=== PATIENT | male | born 1970 | race Two or more races ===

== ENCOUNTER → 2016-07-09 | Outpatient (CLI) | payer MEDICARE, MEDICAID ==
[2016-07-09 11:12] LABS: Urine RBC None Seen /hpf (0 - 3)
[2016-07-09 11:21] LABS: Basophils # (auto) 0 uL; Basophils % (auto) 0.4 % (0.0-2.0); DEFINITIVE VIEW TRANSMISSION; Eosinophils # (auto) 0.3 uL; Eosinophils % (auto) 5.3 % (0.0-7.0); Hematocrit 41.8 % (41.0-53.0); Hemoglobin 14.1 g/dL (13.5-17.5); Lymphocytes # (auto) 1.2 uL; Lymphocytes % (auto) 20.8 % (10.0-50.0); Mean Corpuscular Hgb Conc. 33.7 g/dL (32.0-36.0); Mean Corpuscular Volume 80.3 fL (80.0-100.0); Mean Platelet Volume 9.3 fL (7.4-10.4); Monocytes # (auto) 0.3 uL; Monocytes % (auto) 4.4 % (0.0-12.0); Neutrophils % (auto) 69.1 % (37.0-80.0); Platelet Count (auto) 185 10^3/uL (140-450); Red Cell Distribution Width 19.1 % (11.6-16.0); White Blood Cell 5.8 10^3/uL (4.4-10.8)
[2016-07-09 11:42] LABS: Urine Bilirubin Negative (Negative); Urine Blood Negative /uL (Negative); Urine Color Yellow (Yellow); Urine Glucose Normal (Normal); Urine Ketone Negative (Negative); Urine Nitrite Negative (Negative); Urine Squamous Epithelial Cell FEW /hpf (<5); Urine pH 6.5 (5.0-8.0)
[2016-07-09 12:01] LABS: Albumin 3.5 g/dL (3.4-5.0); BUN/Creatinine Ratio 27.3; Bilirubin, Total 0.6 mg/dL (0.2-1.0); Calcium 8.8 mg/dL (8.5-10.1); Potassium 3.6 mmol/L (3.5-5.1); Total Protein 7.5 g/dL (6.4-8.2)
== END | disposition home or self-care (01) ==
LOC: LAB 10:43
DX: E11.8 Type 2 diabetes mellitus with unspecified complications (principal); N52.1 Erectile dysfunction due to diseases classified elsewhere; E78.2 Mixed hyperlipidemia; I10 Essential (primary) hypertension
CPT/HCPCS: 36415; 80053; 80061; 81001; 83036; 84403; 84443; 85025

== ENCOUNTER → 2017-05-08 | Outpatient (CLI) | payer MEDICARE, MEDICAID ==
[2017-05-08 08:43] LABS: Basophils # (auto) 0 uL; Basophils % (auto) 0.5 % (0.0-2.0); Eosinophils # (auto) 0.1 uL; Eosinophils % (auto) 1.1 % (0.0-7.0); Hematocrit 42.2 % (41.0-53.0); Hemoglobin 14.2 g/dL (13.5-17.5); Lymphocytes # (auto) 1.3 uL; Mean Corpuscular Hemoglobin 27.6 pg (28.0-32.0); Mean Corpuscular Hgb Conc. 33.6 g/dL (32.0-36.0); Monocytes # (auto) 0.4 uL; Monocytes % (auto) 4.6 % (0.0-12.0); Neutrophils # (auto) 6.4 uL; Neutrophils % (auto) 77.8 % (37.0-80.0); Nucleated Red Blood Cells % 0.4 %; Platelet Count (auto) 251 10^3/uL (140-450); Red Blood Cells 5.14 10^6/uL (4.5-5.90); Red Cell Distribution Width 18.3 % (11.8-14.3); White Blood Cell 8.2 10^3/uL (4.4-10.8)
[2017-05-08 09:37] LABS: Albumin 3.3 g/dL (3.4-5.0); BUN/Creatinine Ratio 21.7; Bilirubin, Total 0.6 mg/dL (0.2-1.0); Calcium 8.9 mg/dL (8.5-10.1); Potassium 3.8 mmol/L (3.5-5.1); Total Protein 7.7 g/dL (6.4-8.2)
== END | disposition home or self-care (01) ==
LOC: LAB 08:09
PROVIDERS: ATTEND Physician Assistant
DX: I10 Essential (primary) hypertension (principal); E11.8 Type 2 diabetes mellitus with unspecified complications; E78.2 Mixed hyperlipidemia; K75.81 Nonalcoholic steatohepatitis (NASH)
CPT/HCPCS: 36415; 80053; 80061; 83036; 85025

== ENCOUNTER → 2017-11-04 | Outpatient (CLI) | payer MEDICARE, MEDICAID ==
[2017-11-04 12:33] LABS: Basophils # (auto) 0 uL; Basophils % (auto) 0.3 % (0.0-2.0); Eosinophils # (auto) 0.3 uL; Eosinophils % (auto) 4.3 % (0.0-7.0); Hematocrit 43.3 % (41.0-53.0); Hemoglobin 14.7 g/dL (13.5-17.5); Lymphocytes # (auto) 1.9 uL; Lymphocytes % (auto) 24.4 % (10.0-50.0); Mean Corpuscular Hemoglobin 28.1 pg (28.0-32.0); Mean Corpuscular Hgb Conc. 33.9 g/dL (32.0-36.0); Monocytes # (auto) 0.3 uL; Monocytes % (auto) 4.1 % (0.0-12.0); Neutrophils # (auto) 5.3 uL; Neutrophils % (auto) 66.9 % (37.0-80.0); Nucleated Red Blood Cells % 0.1 %; Platelet Count (auto) 219 10^3/uL (140-450); Red Blood Cells 5.22 10^6/uL (4.5-5.90); Red Cell Distribution Width 15.3 % (11.8-14.3); White Blood Cell 7.9 10^3/uL (4.4-10.8)
[2017-11-04 13:01] LABS: Albumin 3.5 g/dL (3.4-5.0); BUN/Creatinine Ratio 20.9; Bilirubin, Total 0.6 mg/dL (0.2-1.0); Calcium 8.6 mg/dL (8.5-10.1); Potassium 4.2 mmol/L (3.5-5.1); Total Protein 8.1 g/dL (6.4-8.2)
== END | disposition home or self-care (01) ==
LOC: LAB 11:47
PROVIDERS: ATTEND Physician Assistant
DX: E11.8 Type 2 diabetes mellitus with unspecified complications (principal); E78.2 Mixed hyperlipidemia
CPT/HCPCS: 36415; 80053; 80061; 82043; 85025

== ENCOUNTER 2018-07-29 05:05 | Inpatient (IN) | payer MEDICARE, MEDICAID, OTHER | END 2018-08-01 18:37 | disposition home health service (06) | LOC: ER 05:05 → TELE 08:36 → TELE-EAST 10:06 | DX: A41.9 Sepsis, unspecified organism (principal); N39.0 Urinary tract infection, site not specified; G82.20 Paraplegia, unspecified; E78.5 Hyperlipidemia, unspecified; I10 Essential (primary) hypertension; Z79.84 Long term (current) use of oral hypoglycemic drugs; E78.00 Pure hypercholesterolemia, unspecified; E87.6 Hypokalemia; E11.65 Type 2 diabetes mellitus with hyperglycemia ==

== ENCOUNTER 2018-11-10 10:21 | Emergency (ER) | payer MEDICARE, MEDICAID ==
[~2018-11-10 10:21] MED LIST: ATOR10TA52 PO; CIPR-217 PO; LISI10TA6 PO; METF-370 PO
[2018-11-10 11:53] LABS: Basophils # (auto) 0.1 uL; Basophils % (auto) 0.6 % (0.0-2.0); Eosinophils # (auto) 0.2 uL; Eosinophils % (auto) 2.4 % (0.0-7.0); Hematocrit 40.7 % (41.0-53.0); Hemoglobin 14.2 g/dL (13.5-17.5); Lymphocytes % (auto) 21.2 % (10.0-50.0); Mean Corpuscular Hemoglobin 28.4 pg (28.0-32.0); Mean Corpuscular Hgb Conc. 34.8 g/dL (32.0-36.0); Mean Corpuscular Volume 81.5 fL (80.0-100.0); Monocytes # (auto) 0.4 uL; Monocytes % (auto) 3.8 % (0.0-12.0); Neutrophils # (auto) 6.8 uL; Nucleated Red Blood Cells % 0.1 %; Platelet Count (auto) 185 10^3/uL (140-450); Red Cell Distribution Width 17.8 % (11.8-14.3); White Blood Cell 9.4 10^3/uL (4.4-10.8)
[2018-11-10 12:01] LABS: Urine Bacteria FEW /hpf (None Seen); Urine Blood 2+ /uL (Negative); Urine Specific Gravity 1.016 (1.001-1.035); Urine WBC 2814 /hpf (0 - 3); Urine WBC Clumps PRESENT /hpf (None Seen)
[2018-11-10 12:28] LABS: Albumin 3.3 g/dL (3.4-5.0); Calcium 8.7 mg/dL (8.5-10.1); Potassium 3.5 mmol/L (3.5-5.1)
[2018-11-10 12:34] LABS: BUN/Creatinine Ratio 20.2; Bilirubin, Total 0.9 mg/dL (0.2-1.0); Total Protein 8.5 g/dL (6.4-8.2)
[2018-11-10] MEDS ORDERED: InsuLIN REG 1unit/0.01ml Soln (100units/ml) SC ONE ×2 (12:45→14:30)
[2018-11-10 14:23] VITALS: BP 135/85
== END 2018-11-10 14:37 | disposition home or self-care (01) ==
LOC: ER 10:24
DX: E11.65 Type 2 diabetes mellitus with hyperglycemia (principal); N39.0 Urinary tract infection, site not specified; I10 Essential (primary) hypertension; Z90.49 Acquired absence of other specified parts of digestive tract; Z79.84 Long term (current) use of oral hypoglycemic drugs; Z79.899 Other long term (current) drug therapy
CPT/HCPCS: 36415; 80053; 81001; 82962; 85025; 96372; 99283; J1815

== ENCOUNTER 2018-11-27 14:13 | Inpatient (IN) | payer MEDICARE, MEDICAID ==
[~2018-11-27] VITALS: Ht 154.9 cm; Wt 99.9 kg
[2018-11-27] MEDS ORDERED: SODIUM CHLORIDE 0.9% 1,000 ML IVB ONE (14:20)
[2018-11-27] MEDS ORDERED: ONDANSETRON HCL 4 MG/2 ML VIAL IV ONE (14:30)
[2018-11-27] MEDS ORDERED: MORPHINE SULFATE 4 MG/ML SYR/VIAL IV ONE (14:30)
[2018-11-27] MEDS ORDERED: LEVOFLOXACIN 500MG 100 ML IV ONE (14:30)
[2018-11-27] MEDS ORDERED: ACETAMINOPHEN 325 MG TAB PO ONE (15:15)
[2018-11-27 15:35] LABS: Albumin 3.3 g/dL (3.4-5.0); BUN/Creatinine Ratio 21.8; Calcium 8.8 mg/dL (8.5-10.1); Potassium 3.3 mmol/L (3.5-5.1)
[2018-11-27 15:37] LABS: Bilirubin, Total 1.1 mg/dL (0.2-1.0); Lactic Acid w/Reflex 3.5 mmol/L (0.4-2.0)
[2018-11-27 15:38] LABS: Basophils # (auto) 0 uL; Basophils % (auto) 0.2 % (0.0-2.0); Eosinophils # (auto) 0 uL; Eosinophils % (auto) 0.2 % (0.0-7.0); Hematocrit 37.7 % (41.0-53.0); Hemoglobin 12.8 g/dL (13.5-17.5); Lymphocytes # (auto) 0.4 uL; Mean Corpuscular Hemoglobin 28.2 pg (28.0-32.0); Mean Corpuscular Volume 82.9 fL (80.0-100.0); Monocytes # (auto) 0.2 uL; Monocytes % (auto) 2.2 % (0.0-12.0); Neutrophils # (auto) 8.5 uL; Neutrophils % (auto) 93.4 % (37.0-80.0); Nucleated Red Blood Cells % 0.3 %; Platelet Count (auto) 113 10^3/uL (140-450); Red Blood Cells 4.54 10^6/uL (4.5-5.90); Red Cell Distribution Width 17.9 % (11.8-14.3); White Blood Cell 9.1 10^3/uL (4.4-10.8)
[2018-11-27] MEDS ORDERED: PIPERACILLIN-TAZOB 3.375GM 100 ML IV ONE (15:45)
[2018-11-27 15:52] LABS: Urine Bacteria MANY /hpf (None Seen); Urine Blood 2+ /uL (Negative); Urine Mucus FEW (None Seen); Urine Specific Gravity 1.017 (1.001-1.035); Urine WBC 62 /hpf (0 - 3)
[2018-11-27 16:26] LABS: INR 1.06 (0.9-1.15)
[2018-11-27] MEDS ORDERED: NITROGLYCERIN 0.4 MG SL TAB SL PRN (16:30)
[2018-11-27] MEDS ORDERED: MORPHINE SULFATE 4 MG/ML SYR/VIAL IV PRN (16:30)
[2018-11-27] MEDS ORDERED: DEXTROSE (50%) 50ML SYRG IV PRN (16:30)
[2018-11-27] MEDS ORDERED: MORPHINE SULF INJ 2 MG/ML SYRINGE 1ML IV PRN (16:30)
[2018-11-27] MEDS ORDERED: ACETAMINOPHEN 500 MG TAB PO PRN (16:30)
[2018-11-27] MEDS ORDERED: PROMETHAZINE HCL 25 MG/ML 1ML IV PRN (16:30)
[2018-11-27] MEDS ORDERED: POTASSIUM EFFERVESENT TAB 25 MEQ PO ONE (16:45)
[2018-11-27] MEDS: ACCU-CHEK COMFORT CURVE STRIP VI SCH ×2 (17:00→22:00)
[2018-11-27] MEDS: InsuLIN REG 1unit/0.01ml Soln (100units/ml) SC SCH ×2 (17:00→23:24)
[2018-11-27] MEDS: SODIUM CHLORIDE 0.9% 1,000 ML IV SCH (17:37)
[2018-11-27 21:20] VITALS: BP 96/67
--- NOTE | 2018-11-27 21:20 | NUR ---
PM ASSESSMENT PT AWAKE, ALERT, A/OX4, AFEBRILE. NO SOB OR DISTRESS. FAMILY AT BEDSIDE. POC DISCUSSED, PT STATED UNDERSTANDING. CHRISTIANSON CATHETER DRAINING VIA GRAVITY W/ YELLOW CLOUDY URINE. SAFETY PRECAUTIONS IN PLACE. WILL CONTINUE TO MONITOR.
[2018-11-27] MEDS: PIPERACILLIN-TAZOB 3.375GM 100 ML IV SCH (22:37)
--- NOTE | 2018-11-28 | NUR ---
ROUNDS PT SLEEPING CHEST RISING AND FALLING, AROUSABLE BY NAME. PT AFEBRILE. PT TURNED TO SIDE OF BODY, TOLERATING WELL. NO SOB OR DISTRESS. SAFETY PRECAUTIONS IN PLACE. WILL CONTINUE TO MONITOR.
[2018-11-28] MEDS: SODIUM CHLORIDE 0.9% 1,000 ML IV SCH ×2 (02:15→13:52)
--- NOTE | 2018-11-28 02:31 | NUR ---
MED REC UPDATED
[2018-11-28 05:00] VITALS: BP 87/53
[2018-11-28] MEDS: PIPERACILLIN-TAZOB 3.375GM 100 ML IV SCH ×4 (06:18→23:45)
[2018-11-28] MEDS: ACCU-CHEK COMFORT CURVE STRIP VI SCH ×4 (06:30→22:23)
[2018-11-28] MEDS: InsuLIN REG 1unit/0.01ml Soln (100units/ml) SC SCH ×4 (06:30→22:24)
[2018-11-28 06:52] LABS: Albumin 2.7 g/dL (3.4-5.0); Calcium 8.1 mg/dL (8.5-10.1); Potassium 3.7 mmol/L (3.5-5.1)
[2018-11-28 06:55] LABS: BUN/Creatinine Ratio 22.9; Bilirubin, Total 1.2 mg/dL (0.2-1.0); Total Protein 6.7 g/dL (6.4-8.2)
--- NOTE | 2018-11-28 07:20 | NUR ---
Open Shift Note Received report on patient, awake and lying in bed. Patient shows no signs of distress at this time. Patient's blood pressure low but is asymptomatic. Readjusted patient in bed, discussed POC and patient verbalized understanding. Patient has normal saline running through IV. Bed in lowest locked position, side rails up x2 and call light within reach. Will continue to monitor.
[2018-11-28] MEDS: PANTOPRAZOLE 40 MG TAB PO SCH (09:40)
[2018-11-28] MEDS: traMADol HCL 50 MG TAB PO PRN ×2 (09:46→16:55)
[2018-11-28 10:50] VITALS: BP 135/90
[2018-11-28] MEDS ORDERED: IBUPROFEN 400 MG TAB PO PRN (15:00)
[2018-11-28 17:30] VITALS: BP 143/75
--- NOTE | 2018-11-28 17:30 | NUR ---
Paged Urologic Nurse Hospitalist Paged Dr Alva and informed him that patient's left arm blood pressure reading 63/37 and his left leg blood pressure reading 143/75. Patient is asymptomatic at this time. Dr Alva stated to give 500ml bolus NS. Order read back and verified.
[2018-11-28] MEDS ORDERED: SODIUM CHLORIDE 0.9% 500 ML IV ONE (17:45)
--- NOTE | 2018-11-28 19:30 | NUR ---
Closing Note Patient sitting up in bed, shows no signs of distress at this time. Bed in lowest locked position, side rails up x2 and call light within reach. Family present at bedside.
--- NOTE | 2018-11-28 19:30 | NUR ---
Opening Shift Note Assumed care of patient, awake and alert. No S/S of distress/SOB. Family at bedside. Quiñones patent and draining to light ava urine. Discussed on POC, patient and family verbalized understanding. Turned to his side and every 2 hours. Instructed to call for assist PRN, call light within reach, will continue to monitor for changes Q1hr and PRN.
[2018-11-28 22:00] VITALS: BP 126/75
[2018-11-29] MEDS: traMADol HCL 50 MG TAB PO PRN ×2 (01:41→10:10)
[2018-11-29 05:00] VITALS: BP 105/61
[2018-11-29] MEDS: ACCU-CHEK COMFORT CURVE STRIP VI SCH ×4 (06:31→22:16)
[2018-11-29] MEDS: PIPERACILLIN-TAZOB 3.375GM 100 ML IV SCH ×3 (06:31→17:54)
[2018-11-29] MEDS: InsuLIN REG 1unit/0.01ml Soln (100units/ml) SC SCH ×4 (06:32→22:17)
[2018-11-29 07:06] LABS: Basophils # (auto) 0 uL; Basophils % (auto) 0.4 % (0.0-2.0); Eosinophils # (auto) 0.2 uL; Eosinophils % (auto) 2.6 % (0.0-7.0); Hematocrit 31.4 % (41.0-53.0); Hemoglobin 11.1 g/dL (13.5-17.5); Lymphocytes # (auto) 1.4 uL; Lymphocytes % (auto) 23.6 % (10.0-50.0); Mean Corpuscular Hemoglobin 28.9 pg (28.0-32.0); Mean Corpuscular Hgb Conc. 35.3 g/dL (32.0-36.0); Mean Corpuscular Volume 81.8 fL (80.0-100.0); Monocytes # (auto) 0.3 uL; Neutrophils # (auto) 3.9 uL; Neutrophils % (auto) 67.4 % (37.0-80.0); Platelet Count (auto) 100 10^3/uL (140-450); Red Blood Cells 3.84 10^6/uL (4.5-5.90); Red Cell Distribution Width 17.7 % (11.8-14.3); White Blood Cell 5.8 10^3/uL (4.4-10.8)
[2018-11-29 07:15] LABS: Potassium 3.6 mmol/L (3.5-5.1)
[2018-11-29 07:25] LABS: Albumin 2.6 g/dL (3.4-5.0); BUN/Creatinine Ratio 14.8; Bilirubin, Total 0.9 mg/dL (0.2-1.0); Calcium 8.1 mg/dL (8.5-10.1); Total Protein 6.8 g/dL (6.4-8.2)
[2018-11-29 08:00] VITALS: BP 127/71
--- NOTE | 2018-11-29 08:00 | NUR ---
Patient in bed, awake, no acute distress noted, on Quiñones catheter. Patient is paraplegic.
--- NOTE | 2018-11-29 09:20 | NUR ---
Dr. Cadena at bedside. made aware patient is paraplegic, incontinent, has NM Bone Scan ordered for Saturday. Dr. Cadena ordered to keep the Quiñones catheter, no discharge orders today.
[2018-11-29] MEDS: PANTOPRAZOLE 40 MG TAB PO SCH (10:10)
--- NOTE | 2018-11-29 10:10 | NUR ---
Patient stated his pain level at 10/10 at this time. Tramadol PO given for pain as ordered.
[2018-11-29] MEDS ORDERED: ENOXAPARIN SOD 40 MG/0.4 ML SYRINGE SC ONE (10:30)
[2018-11-29 12:00] VITALS: BP 142/50
--- NOTE | 2018-11-29 12:38 | NUR ---
Nutrition Consult/Assessment Notes please see attached link for complete assessment Est. Needs ABW (75 kg): 6750-6281 kcal (17-20 kcal/kgBW), 75-82 gms pro (1.0-1.1 gms/kgBW r/t wounds). Will continue to monitor pertinent labs and reassess nutrient need prn Addendum: 11/29/18 at [address] Amended: Links added.
--- NOTE | 2018-11-29 16:45 | NUR ---
WOUND CARE NOTE: Wound care consult received from nursing. Patient is a 48yo male admitted for UTI with sepsis. Patient with a history of diabetes, fatty liver, hypertension, paraplegia, UTIs, left inguinal hernia and obesity. Patient is alert and denies pain. Last Isidro score is 12. Patient seen with family at bedside. Patient has been paraplegic since 1990 and has suffered from pressure injuries before. Patient states that previous wound was so bad that it went to the muscle and required surgical debridement. Patient can transfer self from bed to wheel chair and frequently and often the friction reopens up the healed pressure injury. Patient's also states that they have recently been trying different adult briefs which many don't protect the skin from moisture as well as others. Patient with an open area to the left buttocks/ischium measuring 1.5x1.5cm with surrounding pink scar tissue. No other open wounds noted. RECOMMENDATIONS: Dietary consult; Turn q2hrs; Specialty Bed; Nursing to cleanse buttocks wound with wound cleanser, pat dry, apply THERAHONEY GEL and cover with OPTIFOAM GENTLE, change every other day and PRN soiling; wound care team to follow. Addendum: 11/29/18 at 1848 by HAILEE AYALA RN Amended: Links added.
--- NOTE | 2018-11-29 16:50 | NUR ---
Wound Care Nurse Fouzia came over to see the patient for Wound Consult.
[2018-11-29 17:00] VITALS: BP 111/64
[2018-11-29 22:10] VITALS: BP 133/82
[2018-11-30] MEDS: PIPERACILLIN-TAZOB 3.375GM 100 ML IV SCH ×5 (00:25→23:38)
[2018-11-30] MEDS: traMADol HCL 50 MG TAB PO PRN (00:42)
[2018-11-30 05:01] VITALS: BP 107/51
[2018-11-30] MEDS: ACCU-CHEK COMFORT CURVE STRIP VI SCH ×4 (06:35→21:46)
[2018-11-30] MEDS: InsuLIN REG 1unit/0.01ml Soln (100units/ml) SC SCH ×4 (06:36→21:51)
--- NOTE | 2018-11-30 08:24 | NUR ---
Dr. Cadena at bedside.
[2018-11-30 09:00] VITALS: BP 125/77
--- NOTE | 2018-11-30 09:40 | NUR ---
Transferred patient on bed with specialty mattress as ordered.
[2018-11-30] MEDS ORDERED: ENOXAPARIN SOD 40 MG/0.4 ML SYRINGE SC SCH (10:00)
[2018-11-30] MEDS: PANTOPRAZOLE 40 MG TAB PO SCH (10:15)
--- NOTE | 2018-11-30 11:00 | NUR ---
Family at bedside.
[2018-11-30 12:54] VITALS: BP 126/74
[2018-11-30 17:00] VITALS: BP 128/86
--- NOTE | 2018-11-30 17:15 | NUR ---
Yellowish stain noted on the pad cair. Changed the pad cair. Patient on Quiñones catheter, with Opti foam on the sacral/buttock area. Patient is paraplegic.
--- NOTE | 2018-11-30 17:20 | NUR ---
Patient denies pain. Family at bedside.
--- NOTE | 2018-11-30 19:15 | NUR ---
RECEIVED PATIENT FROM DAY SHIFT RN. PATIENT RESTING IN BED. NO S/S OF DISTRESS NOTED. FAMILY AT BEDSIDE. DENIED PAIN FOR NOW. CHRISTIANSON CATH IN PLACE DRAINING GRAVITY. DRESSING ON SACRUM AREA C/D/I. POC INSTRUCTED AND ENCOURAGED PATIENT TO CALL FOR TOILET PRODUCTS MOLDER IF NEEDED. SPECIAL MATTRESS BED IN LOWEST POSITION WITH SIDE RAILS UP X 2. CALL RAMOS WITHIN REACH. ALARM ON. CONTINUE TO MONITOR FOR CHANGES Q1H AND PRN.
--- NOTE | 2018-11-30 22:10 | NUR ---
ACCU-CHECK, BS 215. INSULIN GIVEN ORDERED. CONTINUE TO MONITOR.
[2018-11-30 22:51] VITALS: BP 101/71
--- NOTE | 2018-11-30 23:38 | NUR ---
REPOSITIONED PATIENT. PATIENT TOLERATED WELL. CONTINUE TO MONITOR.
--- NOTE | 2018-12-01 01:27 | NUR ---
REPOSITIONED PATIENT TO COMFORT. PATIENT TOLERATED WELL. CONTINUE CARE.
--- NOTE | 2018-12-01 03:29 | NUR ---
REPOSITIONED PATIENT. PATIENT TOLERATED WELL. CONTINUE TO MONITOR.
[2018-12-01 04:57] VITALS: BP 115/46
--- NOTE | 2018-12-01 05:30 | NUR ---
REPOSITIONED PATIENT. PATIENT TOLERATED WELL. CONTINUE TO MONITOR.
[2018-12-01] MEDS: PIPERACILLIN-TAZOB 3.375GM 100 ML IV SCH (06:11)
[2018-12-01] MEDS: InsuLIN REG 1unit/0.01ml Soln (100units/ml) SC SCH ×4 (06:25→21:42)
[2018-12-01] MEDS: ACCU-CHEK COMFORT CURVE STRIP VI SCH ×4 (06:25→21:41)
--- NOTE | 2018-12-01 06:52 | NUR ---
ACCU-CHECK, BS 165. INSULIN GIVEN ORDERED. CONTINUE TO MONITOR.
--- NOTE | 2018-12-01 07:50 | NUR ---
Opening Shift Note Assumed care of patient, awake and alert. No S/S of distress/SOB or pain. Instructed on POC and to call for assist PRN, will continue to monitor for changes Q1hr and PRN. Q2H turning for patient.
[2018-12-01 09:00] VITALS: BP 125/81
[2018-12-01] MEDS: PANTOPRAZOLE 40 MG TAB PO SCH (09:22)
[2018-12-01] MEDS: ENOXAPARIN SOD 40 MG/0.4 ML SYRINGE SC SCH (09:23)
[2018-12-01] MEDS: traMADol HCL 50 MG TAB PO PRN (09:26)
--- NOTE | 2018-12-01 10:24 | NUR ---
Off Unit Patient left unit for nuclear medicine dept.
[2018-12-01] MEDS ORDERED: CEFTRIAXONE SODIUM 2 GM in D5W 5% 50 ML IV ONE (10:45)
--- NOTE | 2018-12-01 13:00 | NUR ---
On Unit Patient returned to unit with technicians. Patient in no obvious distress SOB/Pain.
--- NOTE | 2018-12-01 13:10 | NUR ---
Hygenic Needs Hygienic needs met along with full linen change. Wound care done as ordered. Patient placed in supine position so he can have lunch.
[2018-12-01 17:00] VITALS: BP 125/77
--- NOTE | 2018-12-01 17:30 | NUR ---
Family members at bedside.
--- NOTE | 2018-12-01 18:15 | NUR ---
Air Mattress Drywall Finisher Foreman changed cable for air mattress. Same was previously not working.
--- NOTE | 2018-12-01 19:24 | NUR ---
RECEIVED PATIENT FROM DAY SHIFT RN. PATIENT RESTING IN BED. NO S/S OF DISTRESS NOTED. DENIED PAIN FOR NOW. CHRISTIANSON CATH IN PLACE DRAINING GRAVITY. DRESSING ON SACRUM AREA C/D/I. POC INSTRUCTED AND ENCOURAGED PATIENT TO CALL FOR COLLARETTE SEPARATOR IF NEEDED. SPECIAL MATTRESS BED WORKING NOW AND IN LOWEST POSITION WITH SIDE RAILS UP X 2. CALL RAMOS WITHIN REACH. ALARM ON. CONTINUE TO MONITOR FOR CHANGES Q1H AND PRN.
--- NOTE | 2018-12-01 21:35 | NUR ---
REPOSITIONED PATIENT. PATIENT TOLERATED WELL. CONTINUE TO MONITOR.
[2018-12-01 22:00] VITALS: BP 137/70
--- NOTE | 2018-12-01 22:42 | NUR ---
ACCU-CHECK, BS 198. INSULIN GIVEN ORDERED. CONTINUE TO MONITOR.
--- NOTE | 2018-12-02 00:07 | NUR ---
REPOSITIONED PATIENT. PATIENT TOLERATED WELL. CONTINUE TO MONITOR.
--- NOTE | 2018-12-02 04:58 | NUR ---
REPOSITIONED PATIENT. PATIENT TOLERATED WELL. CONTINUE TO MONITOR.
[2018-12-02 05:00] VITALS: BP 102/50
[2018-12-02] MEDS: ACCU-CHEK COMFORT CURVE STRIP VI SCH ×3 (06:26→17:00)
[2018-12-02] MEDS: InsuLIN REG 1unit/0.01ml Soln (100units/ml) SC SCH ×3 (06:26→17:00)
--- NOTE | 2018-12-02 06:27 | NUR ---
ACCU-CHECK, BS 165. INSULIN GIVEN ORDERED. CONTINUE TO MONITOR.
--- NOTE | 2018-12-02 07:40 | NUR ---
Opening Shift Note Assumed care of patient, awake and alert. No S/S of distress/SOB or pain. Instructed on POC and to call for assist PRN, will continue to monitor for changes Q1hr and PRN. Q2H Turning.
[2018-12-02 09:12] VITALS: BP 141/81
[2018-12-02] MEDS ORDERED: CEFTRIAXONE SODIUM 2 GM in D5W 5% 50 ML IV SCH (10:00)
[2018-12-02] MEDS: PANTOPRAZOLE 40 MG TAB PO SCH (10:11)
[2018-12-02] MEDS: ENOXAPARIN SOD 40 MG/0.4 ML SYRINGE SC SCH (10:11)
[2018-12-02] MEDS ORDERED: ROC2INJ10 IV (11:45)
[2018-12-02 13:00] VITALS: BP 148/91
--- NOTE | 2018-12-02 14:57 | NUR ---
Midline Placement: Patient educated on need for midline placement. All risks and benefits explained and all questions and concerns addresses prior to procedure. 18g/10cm midline inserted via right basilic vein using Ultrasound. Sterile technique utilized. Blood return obtained from lumen and flushed easily with NS using proper technique. Midline secured with saline lock; biodisc and occlusive dressing applied. Primary RN notified. Midline lot # [id number]
--- NOTE | 2018-12-02 15:15 | NUR ---
Discharge Photo Discharge picture of wound taken.
--- NOTE | 2018-12-02 15:16 | NUR ---
Discharge planning per consult, patient received orders to dc with home health for IV ABX x 10 days. Referral faxed to [facility] Infusion and [facility]. Spoke with Alison at [facility] and was advised they will deliver the IV ABX today between 7-9pm. Spoke with Popeye at [facility] and was advised that they will be going out in the morning to start care services. Nurse Chelsea advised of dc plan. Addendum: 12/02/18 at 1521 by RACHNA MAHAN SS Amended: Links added.
[2018-12-02 15:51] VITALS: BP 148/91
[2018-12-02 17:00] VITALS: BP 110/66
--- NOTE | 2018-12-02 18:20 | NUR ---
Discharge instructions given as ordered. Encourage to follow up with PMD as instructed. All questions and concerns addressed. Patient verbalized understanding. Medication reconciliation form completed and copy given to patient. IV previously removed with catheter intact and pressure dressing applied, mireles catheter removed. Midline remained in place for home antibiotics. Telemetry unit returned to ICU. Patient left unit in wheel chair with all personal belongings. No distress noted at time of departure.
== END 2018-12-02 18:00 | disposition home health service (06) | DRG 871 ==
LOC: EDBD 14:13 → ER 14:16 → TELE 14:17 → TELE-EAST 20:51
PROVIDERS: ADMIT Internal Medicine; ATTEND Internal Medicine Nephrology
PROC: 05HY33Z Insertion of Infusion Device into Upper Vein, Percutaneous Approach (ICD-10-PCS; principal; 2018-12-02)
PROC: B54MZZA Ultrasonography of Right Upper Extremity Veins, Guidance (ICD-10-PCS; 2018-12-02)
DX: A41.50 Gram-negative sepsis, unspecified (principal); L89.154 Pressure ulcer of sacral region, stage 4; N39.0 Urinary tract infection, site not specified; E87.1 Hypo-osmolality and hyponatremia; G82.20 Paraplegia, unspecified; Z68.41 Body mass index [BMI] 40.0-44.9, adult; R65.20 Severe sepsis without septic shock; E87.6 Hypokalemia; K76.0 Fatty (change of) liver, not elsewhere classified; E11.9 Type 2 diabetes mellitus without complications; I10 Essential (primary) hypertension; M65.852 Other synovitis and tenosynovitis, left thigh; M65.851 Other synovitis and tenosynovitis, right thigh; E78.5 Hyperlipidemia, unspecified; E66.9 Obesity, unspecified; Z82.49 Family history of ischemic heart disease and other diseases of the circulatory system; Z83.3 Family history of diabetes mellitus; Z79.899 Other long term (current) drug therapy
CPT/HCPCS: 36415; 73501; 74176; 78315; 80053; 81001; 82962; 83036; 83605; 85025; 85610; 87040; 87077; 87086; 87088; 87186; 94761; 96361; 96365; 96367; 96375; G0378; J0696; J1815; J1956; J2405; J2543; J7060

== ENCOUNTER → 2019-09-18 | Outpatient (CLI) | payer MEDICARE, MEDICAID ==
[~2019-09-18] MED LIST changes: -CIPR-217 PO; +ROC2INJ10 IV
[2019-09-18 13:08] LABS: Basophils # (auto) 0 10 ^3/uL (0-0.2); Basophils % (auto) 0.3 % (0.0-2.0); Eosinophils # (auto) 0.2 10 ^3/uL (0-0.8); Eosinophils % (auto) 2.1 % (0.0-7.0); Hemoglobin 12.2 g/dL (13.5-17.5); Lymphocytes # (auto) 1.6 10 ^3/uL (0.4-5.4); Mean Corpuscular Hemoglobin 26.3 pg (28.0-32.0); Mean Corpuscular Volume 79.7 fL (80.0-100.0); Monocytes # (auto) 0.3 10 ^3/uL (0-1.3); Monocytes % (auto) 3.6 % (0.0-12.0); Neutrophils # (auto) 6.5 10 ^3/uL (1.6-8.6); Nucleated Red Blood Cells % 0.1 %; Platelet Count (auto) 302 10^3/uL (140-450); Red Blood Cells 4.64 10^6/uL (4.5-5.90); Red Cell Distribution Width 17.2 % (11.8-14.3); White Blood Cell 8.6 10^3/uL (4.4-10.8)
[2019-09-18 13:20] LABS: Urine Bacteria FEW /hpf (None Seen); Urine Blood 2+ /uL (Negative); Urine Specific Gravity 1.018 (1.001-1.035); Urine WBC 1551 /hpf (0 - 3); Urine WBC Clumps PRESENT /hpf (None Seen)
[2019-09-18 14:19] LABS: Potassium 3.7 mmol/L (3.5-5.1)
[2019-09-18 14:28] LABS: BUN/Creatinine Ratio 20.3; Bilirubin, Total 0.4 mg/dL (0.2-1.0); Calcium 8.9 mg/dL (8.5-10.1); Total Protein 8.2 g/dL (6.4-8.2)
== END | disposition home or self-care (01) ==
LOC: LAB 12:22
PROVIDERS: ATTEND Physician Assistant
DX: E11.69 Type 2 diabetes mellitus with other specified complication (principal); I10 Essential (primary) hypertension; E78.2 Mixed hyperlipidemia; K75.81 Nonalcoholic steatohepatitis (NASH)
CPT/HCPCS: 36415; 80053; 80061; 81001; 83036; 84403; 85025

== ENCOUNTER 2019-10-01 11:37 | Emergency (ER) | payer MEDICARE, MEDICAID ==
[~2019-10-01] VITALS: Ht 180.3 cm; Wt 81.6 kg
[2019-10-01 11:48] VITALS: BP 119/72
[2019-10-01 12:56] LABS: Urine Bacteria NONE SEEN /hpf (None Seen); Urine Blood 2+ /uL (Negative); Urine Mucus FEW (None Seen); Urine Specific Gravity 1.016 (1.001-1.035); Urine WBC 1982 /hpf (0 - 3)
[2019-10-01] MEDS ORDERED: cefTRIAXone SOD 1,000 MG VL IM ONE (13:30)
== END 2019-10-01 14:00 | disposition home or self-care (01) ==
LOC: ER 11:37
DX: N39.0 Urinary tract infection, site not specified (principal)
CPT/HCPCS: 81001; 82962; 96372; 99283; J0696

== ENCOUNTER 2020-05-27 09:16 | Inpatient (IN) | payer MEDICARE, MEDICAID ==
[~2020-05-27] VITALS: Ht 175.3 cm; Wt 105.3 kg
[~2020-05-27 09:16] MED LIST changes: +LISI-716 PO; -LISI10TA6 PO
[2020-05-27] MEDS ORDERED: PIPERACILLIN-TAZOB 3.375GM 100 ML IV ONE (10:00)
[2020-05-27 10:36] LABS: Basophils # (auto) 0.1 10 ^3/uL (0-0.2); Basophils % (auto) 0.6 % (0.0-2.0); Monocytes # (auto) 0.3 10 ^3/uL (0-1.3); Neutrophils # (auto) 6.6 10 ^3/uL (1.6-8.6); Nucleated Red Blood Cells % 0.1 %
[2020-05-27 10:37] LABS: Eosinophils # (auto) 0.1 10 ^3/uL (0-0.8); Eosinophils % (auto) 1.7 % (0.0-7.0); Hematocrit 37.3 % (41.0-53.0); Hemoglobin 12.7 g/dL (13.5-17.5); Lymphocytes # (auto) 1.5 10 ^3/uL (0.4-5.4); Lymphocytes % (auto) 17.1 % (10.0-50.0); Mean Corpuscular Hemoglobin 26.1 pg (28.0-32.0); Mean Corpuscular Hgb Conc. 34.1 g/dL (32.0-36.0); Mean Corpuscular Volume 76.6 fL (80.0-100.0); Monocytes % (auto) 3.7 % (0.0-12.0); Neutrophils % (auto) 76.9 % (37.0-80.0); Red Blood Cells 4.87 10^6/uL (4.5-5.90); Red Cell Distribution Width 17.6 % (11.8-14.3); White Blood Cell 8.6 10^3/uL (4.4-10.8)
[2020-05-27 10:44] LABS: Calcium 8.9 mg/dL (8.5-10.1); Potassium 3.7 mmol/L (3.5-5.1)
[2020-05-27 10:47] LABS: BUN/Creatinine Ratio 19.4
[2020-05-27 13:06] LABS: Urine Amorphous Crystal FEW /hpf (None Seen); Urine Bacteria MANY /hpf (None Seen); Urine Blood 1+ /uL (Negative); Urine Specific Gravity 1.008 (1.001-1.035); Urine WBC 49 /hpf (0 - 3)
[2020-05-27 13:16] LABS: Lactic Acid w/Reflex 2.2 mmol/L (0.4-2.0)
[2020-05-27] MEDS ORDERED: ACETAMINOPHEN 500 MG TAB PO PRN (14:00)
[2020-05-27] MEDS ORDERED: LORazepam 0.5 MG TAB PO PRN (14:00)
[2020-05-27] MEDS ORDERED: TETANUS-DIPTH-ACEL PERTUSSIS 0.5ML SYR Tdap IM ONE (14:00)
[2020-05-27] MEDS ORDERED: hydrALAZINE HCL 20 MG/ML VL IV PRN (14:00)
[2020-05-27] MEDS ORDERED: DEXTROSE (50%) 50ML SYRG IV PRN (14:00)
[2020-05-27] MEDS ORDERED: ONDANSETRON HCL 4 MG/2 ML VIAL IV PRN (14:00)
[2020-05-27] MEDS ORDERED: NITROGLYCERIN 0.4 MG SL TAB SL PRN (14:00)
[2020-05-27] MEDS ORDERED: DOCUSATE CALCIUM 240 MG CAP PO PRN (14:00)
[2020-05-27] MEDS ORDERED: MORPHINE SULFATE INJECTION 2 MG/ML SYRG IV PRN ×2 (14:00)
[2020-05-27] MEDS ORDERED: cefTRIAXone 1GM/50ML D5W 50 ML IV ONE ×2 (14:15→23:34)
[2020-05-27] MEDS: InsuLIN REG 1unit/0.01ml Soln (100units/ml) SC SCH ×2 (16:40→20:00)
[2020-05-27] MEDS: ACCU-CHEK COMFORT CURVE STRIP VI SCH ×2 (16:41→20:00)
[2020-05-27 16:58] VITALS: BP 121/62
[2020-05-27] MEDS ORDERED: PNEUMOCOCCAL VACC POLYS 25 MCG/0.5 ML VIAL IM ONE (17:00)
[2020-05-27] MEDS ORDERED: ATEN-60 PO (17:10)
[2020-05-27] MEDS ORDERED: LISI-706 PO (17:10)
[2020-05-27] MEDS ORDERED: METF-370 PO (17:10)
[2020-05-27] MEDS: PIPERACILLIN-TAZOB 3.375GM 100 ML IV SCH ×2 (18:15→23:52)
[2020-05-27 18:22] LABS: INR 1.06 (0.9-1.15)
[2020-05-27 22:53] VITALS: BP 122/75
[2020-05-27] MEDS ORDERED: cefTRIAXone 1GM/50ML D5W 0 ML IV ONE (23:30)
[2020-05-28] MEDS: ACCU-CHEK COMFORT CURVE STRIP VI SCH ×7 (00:01→23:27)
[2020-05-28] MEDS: InsuLIN REG 1unit/0.01ml Soln (100units/ml) SC SCH ×7 (00:02→23:27)
[2020-05-28 05:32] VITALS: BP 100/57
[2020-05-28] MEDS: PIPERACILLIN-TAZOB 3.375GM 100 ML IV SCH ×4 (06:00→23:24)
[2020-05-28 06:14] LABS: Basophils # (auto) 0 10 ^3/uL (0-0.2); Basophils % (auto) 0.3 % (0.0-2.0); Eosinophils # (auto) 0.3 10 ^3/uL (0-0.8); Monocytes # (auto) 0.3 10 ^3/uL (0-1.3)
[2020-05-28 06:17] LABS: Calcium 8.6 mg/dL (8.5-10.1); Eosinophils % (auto) 2.9 % (0.0-7.0); Hematocrit 36.8 % (41.0-53.0); Hemoglobin 12.2 g/dL (13.5-17.5); Lymphocytes # (auto) 1.7 10 ^3/uL (0.4-5.4); Lymphocytes % (auto) 18.6 % (10.0-50.0); Mean Corpuscular Hemoglobin 25.5 pg (28.0-32.0); Mean Corpuscular Hgb Conc. 33.2 g/dL (32.0-36.0); Monocytes % (auto) 3.8 % (0.0-12.0); Neutrophils # (auto) 6.8 10 ^3/uL (1.6-8.6); Neutrophils % (auto) 74.4 % (37.0-80.0); Potassium 3.8 mmol/L (3.5-5.1); Red Blood Cells 4.78 10^6/uL (4.5-5.90); Red Cell Distribution Width 18.1 % (11.8-14.3); White Blood Cell 9.1 10^3/uL (4.4-10.8)
[2020-05-28 06:21] LABS: Bilirubin, Total 0.5 mg/dL (0.2-1.0)
[2020-05-28 06:26] LABS: INR 1.1 (0.9-1.15)
[2020-05-28] MEDS: PANTOPRAZOLE 40 MG TAB PO SCH (08:21)
[2020-05-28] MEDS: ENOXAPARIN SOD 40 MG/0.4 ML SYRINGE SC SCH (08:21)
[2020-05-28 08:52] VITALS: BP 123/57
[2020-05-28 12:31] VITALS: BP 128/70
[2020-05-28] MEDS ORDERED: OMNIPAQUE ORAL SOLN 500ml 12mg/ml PO ONE (15:50)
[2020-05-28 16:33] VITALS: BP 131/74
[2020-05-28 22:00] VITALS: BP 121/77
[2020-05-29] MEDS: InsuLIN REG 1unit/0.01ml Soln (100units/ml) SC SCH ×6 (04:00→23:46)
[2020-05-29] MEDS: ACCU-CHEK COMFORT CURVE STRIP VI SCH ×6 (04:25→23:46)
[2020-05-29 05:00] VITALS: BP 123/64
[2020-05-29] MEDS: PIPERACILLIN-TAZOB 3.375GM 100 ML IV SCH (06:03)
[2020-05-29 08:30] VITALS: BP 130/79
[2020-05-29] MEDS ORDERED: cefTRIAXone 1GM/50ML D5W 50 ML IV SCH (09:00)
[2020-05-29] MEDS: ENOXAPARIN SOD 40 MG/0.4 ML SYRINGE SC SCH (09:22)
[2020-05-29] MEDS: PANTOPRAZOLE 40 MG TAB PO SCH (09:22)
[2020-05-29] MEDS ORDERED: ERTAPENEM SOD INJ 1 GM in SODIUM CHL 0.9% 50 ML IV ONE (11:30)
[2020-05-29 21:44] VITALS: BP 103/54
[2020-05-30] MEDS: InsuLIN REG 1unit/0.01ml Soln (100units/ml) SC SCH ×6 (04:00→23:26)
[2020-05-30] MEDS: ACCU-CHEK COMFORT CURVE STRIP VI SCH ×6 (04:04→23:26)
[2020-05-30 05:18] VITALS: BP 128/73
[2020-05-30 08:00] VITALS: BP 139/88
[2020-05-30 09:00] VITALS: BP 139/88
[2020-05-30] MEDS: ENOXAPARIN SOD 40 MG/0.4 ML SYRINGE SC SCH (10:00)
[2020-05-30] MEDS: PANTOPRAZOLE 40 MG TAB PO SCH (11:14)
[2020-05-30] MEDS: ERTAPENEM SOD INJ 1 GM in SODIUM CHL 0.9% 50 ML IV SCH (11:15)
[2020-05-30 13:00] VITALS: BP 119/67
[2020-05-30] MEDS ORDERED: LIDOCAINE 1% (LOCAL ANESTH.) PF 5ml SDV ID ONE (15:45)
[2020-05-30 17:00] VITALS: BP 137/87
[2020-05-30] MEDS: SODIUM CHLOR 0.9% PF (SALINE LOCK) 10ML VIAL/SYR IV SCH (20:09)
[2020-05-30 22:00] VITALS: BP 100/58
[2020-05-31] MEDS: InsuLIN REG 1unit/0.01ml Soln (100units/ml) SC SCH ×7 (03:37→23:52)
[2020-05-31] MEDS: ACCU-CHEK COMFORT CURVE STRIP VI SCH ×6 (03:37→23:51)
[2020-05-31 05:00] VITALS: BP 123/82
[2020-05-31 08:32] VITALS: BP 143/81
[2020-05-31] MEDS: ENOXAPARIN SOD 40 MG/0.4 ML SYRINGE SC SCH (08:39)
[2020-05-31] MEDS: SODIUM CHLOR 0.9% PF (SALINE LOCK) 10ML VIAL/SYR IV SCH ×2 (08:39→20:29)
[2020-05-31] MEDS: PANTOPRAZOLE 40 MG TAB PO SCH (08:39)
[2020-05-31 12:37] VITALS: BP 128/83
[2020-05-31] MEDS: ERTAPENEM SOD INJ 1 GM in SODIUM CHL 0.9% 50 ML IV SCH (13:29)
[2020-05-31 16:34] VITALS: BP 135/77
[2020-05-31 22:22] VITALS: BP 120/65
[2020-06-01] MEDS: ACCU-CHEK COMFORT CURVE STRIP VI SCH ×6 (03:47→23:46)
[2020-06-01] MEDS: InsuLIN REG 1unit/0.01ml Soln (100units/ml) SC SCH ×6 (03:47→23:49)
[2020-06-01 05:30] VITALS: BP 105/61
[2020-06-01 08:53] VITALS: BP 139/87
[2020-06-01] MEDS: SODIUM CHLOR 0.9% PF (SALINE LOCK) 10ML VIAL/SYR IV SCH ×2 (10:09→21:31)
[2020-06-01] MEDS: PANTOPRAZOLE 40 MG TAB PO SCH (10:09)
[2020-06-01] MEDS: ENOXAPARIN SOD 40 MG/0.4 ML SYRINGE SC SCH (10:10)
[2020-06-01] MEDS: ERTAPENEM SOD INJ 1 GM in SODIUM CHL 0.9% 50 ML IV SCH (10:58)
[2020-06-01 13:00] VITALS: BP 126/81
[2020-06-01 16:55] VITALS: BP 113/52
[2020-06-01 21:00] VITALS: BP 114/63
[2020-06-02] MEDS: InsuLIN REG 1unit/0.01ml Soln (100units/ml) SC SCH ×4 (04:00→17:25)
[2020-06-02] MEDS: ACCU-CHEK COMFORT CURVE STRIP VI SCH ×4 (04:00→17:24)
[2020-06-02 05:00] VITALS: BP 132/78
[2020-06-02 09:00] VITALS: BP 132/71
[2020-06-02] MEDS: PANTOPRAZOLE 40 MG TAB PO SCH (09:06)
[2020-06-02] MEDS: ENOXAPARIN SOD 40 MG/0.4 ML SYRINGE SC SCH (09:06)
[2020-06-02] MEDS: SODIUM CHLOR 0.9% PF (SALINE LOCK) 10ML VIAL/SYR IV SCH (09:06)
[2020-06-02] MEDS: ERTAPENEM SOD INJ 1 GM in SODIUM CHL 0.9% 50 ML IV SCH (09:18)
[2020-06-02 13:00] VITALS: BP 134/87
[2020-06-02] MEDS ORDERED: CLINDAMYCIN HCL 150 MG CAP PO SCH (14:00)
[2020-06-02 14:20] VITALS: BP 134/87
[2020-06-02 14:31] VITALS: BP 134/87
[2020-06-02 17:00] VITALS: BP 132/86
== END 2020-06-02 18:23 | disposition home health service (06) | DRG 871 ==
LOC: ER 09:16 → CENTRAL 09:17
PROVIDERS: ADMIT Family Medicine; ATTEND Family Medicine
PROC: 05H933Z Insertion of Infusion Device into Right Brachial Vein, Percutaneous Approach (ICD-10-PCS; principal; 2020-05-30)
PROC: B54MZZA Ultrasonography of Right Upper Extremity Veins, Guidance (ICD-10-PCS; 2020-05-30)
DX: A41.9 Sepsis, unspecified organism (principal); L89.323 Pressure ulcer of left buttock, stage 3; N39.0 Urinary tract infection, site not specified; G82.20 Paraplegia, unspecified; E87.1 Hypo-osmolality and hyponatremia; N36.0 Urethral fistula; M86.8X8 Other osteomyelitis, other site; E11.65 Type 2 diabetes mellitus with hyperglycemia; E87.6 Hypokalemia; K76.0 Fatty (change of) liver, not elsewhere classified; K40.90 Unilateral inguinal hernia, without obstruction or gangrene, not specified as recurrent; B96.20 Unspecified Escherichia coli [E. coli] as the cause of diseases classified elsewhere; Z20.822 Contact with and (suspected) exposure to COVID-19; I10 Essential (primary) hypertension; E66.3 Overweight; Z68.34 Body mass index [BMI] 34.0-34.9, adult; Z82.49 Family history of ischemic heart disease and other diseases of the circulatory system; Z83.3 Family history of diabetes mellitus; Z87.440 Personal history of urinary (tract) infections; Z90.49 Acquired absence of other specified parts of digestive tract; Z74.01 Bed confinement status; Z28.21 Immunization not carried out because of patient refusal
CPT/HCPCS: 36415; 36569; 71045; 74176; 80048; 80053; 81001; 82962; 83036; 83605; 84154; 84443; 85025; 85610; 85730; 86850; 86900; 86901; 87040; 87077; 87086; 87088; 87186; 87205; 87426; 90471; 90715; 96365; 96367; G0378; J0696; J1335; J1815; J2543

== ENCOUNTER → 2020-06-20 | Outpatient (CLI) | payer MEDICARE, MEDICAID ==
[~2020-06-20] MED LIST changes: +ATEN-60 PO; +LISI-706 PO; -LISI-716 PO
[2020-06-20 14:51] LABS: Urine Bacteria NONE SEEN /hpf (None Seen); Urine Blood 1+ /uL (Negative); Urine Budding Yeast MANY /hpf (None Seen); Urine Mucus FEW (None Seen); Urine Specific Gravity 1.021 (1.001-1.035); Urine WBC 12 /hpf (0 - 3)
== END | disposition home or self-care (01) ==
LOC: LAB 13:55
PROVIDERS: ATTEND Urology
DX: N39.0 Urinary tract infection, site not specified (principal)
CPT/HCPCS: 81001; 87086

== ENCOUNTER 2020-08-02 14:49 | Inpatient (IN) | payer MEDICARE, MEDICAID ==
[~2020-08-02] VITALS: Ht 175.3 cm; Wt 97.3 kg
[2020-08-02 15:49] LABS: Basophils # (auto) 0 10 ^3/uL (0-0.2); Basophils % (auto) 0.4 % (0.0-2.0); Eosinophils # (auto) 0.3 10 ^3/uL (0-0.8); Eosinophils % (auto) 3.2 % (0.0-7.0); Hematocrit 39.2 % (41.0-53.0); Hemoglobin 12.6 g/dL (13.5-17.5); Lymphocytes # (auto) 1.9 10 ^3/uL (0.4-5.4); Lymphocytes % (auto) 21.8 % (10.0-50.0); Mean Corpuscular Hemoglobin 24.4 pg (28.0-32.0); Mean Corpuscular Hgb Conc. 32.2 g/dL (32.0-36.0); Mean Corpuscular Volume 75.7 fL (80.0-100.0); Monocytes # (auto) 0.3 10 ^3/uL (0-1.3); Neutrophils % (auto) 70.6 % (37.0-80.0); Nucleated Red Blood Cells % 0.2 %; Platelet Count (auto) 253 10^3/uL (140-450); Red Blood Cells 5.18 10^6/uL (4.5-5.90); Red Cell Distribution Width 18.6 % (11.8-14.3); White Blood Cell 8.6 10^3/uL (4.4-10.8)
[2020-08-02 16:09] LABS: Albumin 3.2 g/dL (3.4-5.0); Calcium 8.4 mg/dL (8.5-10.1); Potassium 3.8 mmol/L (3.5-5.1)
[2020-08-02 16:15] LABS: BUN/Creatinine Ratio 19.7; Bilirubin, Total 0.7 mg/dL (0.2-1.0); INR 1.19 (0.9-1.15); Partial Thromboplastin Time 29.9 sec (23.0-31.2); Total Protein 7.4 g/dL (6.4-8.2)
[2020-08-02] MEDS ORDERED: ENOXAPARIN SOD 100 MG/1 ML SYRINGE SC ONE (17:45)
[2020-08-02] MEDS ORDERED: SODIUM CHLORIDE 0.9% 1,000 ML IV ONE (18:00)
[2020-08-02] MEDS ORDERED: LIDOCAINE 1% (LOCAL ANESTH.) PF 5ml SDV ID ONE (19:15)
[2020-08-02 20:55] LABS: Urine Bacteria MOD /hpf (None Seen); Urine Blood 2+ /uL (Negative); Urine Budding Yeast FEW /hpf (None Seen); Urine Hyaline Cast MOD /lpf (0 - 2); Urine Mucus FEW (None Seen); Urine Specific Gravity 1.016 (1.001-1.035); Urine WBC 410 /hpf (0 - 3); Urine WBC Clumps PRESENT /hpf (None Seen)
[2020-08-02] MEDS ORDERED: DEXTROSE (50%) 50ML SYRG IV PRN (21:30)
[2020-08-02] MEDS ORDERED: ONDANSETRON HCL 4 MG/2 ML VIAL IV PRN (21:30)
[2020-08-02] MEDS ORDERED: NITROGLYCERIN 0.4 MG SL TAB SL PRN (21:30)
[2020-08-02] MEDS ORDERED: HYDROcodone-ACET 5/325MG TAB PO PRN (21:30)
[2020-08-02] MEDS ORDERED: ACETAMINOPHEN 325 MG TAB PO PRN (21:30)
[2020-08-02] MEDS ORDERED: TEMAZEPAM 15 MG CAP PO PRN (21:30)
[2020-08-02] MEDS ORDERED: VANCOMYCIN PER PHARMACY 0 MG IV SCH (21:30)
[2020-08-02] MEDS ORDERED: MORPHINE SULF INJ 2 MG/ML SYRINGE 1ML IV PRN (21:30)
[2020-08-02] MEDS ORDERED: ERTAPENEM SOD INJ 1 GM in SODIUM CHL 0.9% 50 ML IV ONE (21:45)
[2020-08-03] MEDS ORDERED: VANCOMYCIN 1GM/250ML 250 ML IV SCH
[2020-08-03] MEDS: ATORVASTATIN 20 MG TAB PO SCH ×2 (00:11→21:34)
[2020-08-03] MEDS: SODIUM CHLOR 0.9% PF (SALINE LOCK) 10ML VIAL/SYR IV SCH ×3 (00:11→21:33)
[2020-08-03] MEDS: FAMOTIDINE 20 MG TAB PO SCH ×3 (00:12→21:34)
[2020-08-03] MEDS: InsuLIN REG 1unit/0.01ml Soln (100units/ml) SC SCH ×5 (00:14→23:03)
[2020-08-03] MEDS: ACCU-CHEK COMFORT CURVE STRIP VI SCH ×5 (00:14→21:34)
[2020-08-03 06:35] LABS: Basophils # (auto) 0 10 ^3/uL (0-0.2); Eosinophils # (auto) 0.3 10 ^3/uL (0-0.8); Lymphocytes # (auto) 2.2 10 ^3/uL (0.4-5.4); Monocytes # (auto) 0.3 10 ^3/uL (0-1.3); Nucleated Red Blood Cells % 0.1 %
[2020-08-03 06:46] LABS: Basophils % (auto) 0.5 % (0.0-2.0); Eosinophils % (auto) 3.7 % (0.0-7.0); Hematocrit 34.7 % (41.0-53.0); Hemoglobin 11.8 g/dL (13.5-17.5); Lymphocytes % (auto) 26.9 % (10.0-50.0); Mean Corpuscular Hemoglobin 25.6 pg (28.0-32.0); Mean Corpuscular Hgb Conc. 33.9 g/dL (32.0-36.0); Mean Corpuscular Volume 75.7 fL (80.0-100.0); Monocytes % (auto) 3.6 % (0.0-12.0); Neutrophils # (auto) 5.4 10 ^3/uL (1.6-8.6); Neutrophils % (auto) 65.3 % (37.0-80.0); Platelet Count (auto) 216 10^3/uL (140-450); Red Blood Cells 4.59 10^6/uL (4.5-5.90); Red Cell Distribution Width 18.7 % (11.8-14.3); White Blood Cell 8.3 10^3/uL (4.4-10.8)
[2020-08-03 06:55] LABS: Potassium 3.2 mmol/L (3.5-5.1)
[2020-08-03 07:00] LABS: BUN/Creatinine Ratio 21.9; Bilirubin, Total 0.6 mg/dL (0.2-1.0); Total Protein 6.9 g/dL (6.4-8.2)
[2020-08-03] MEDS ORDERED: PATIENTS OWN MEDICATION (ertapenem 1 GM) IV SCH (10:00)
[2020-08-03] MEDS ORDERED: LISINOPRIL 20 MG TAB PO SCH (10:00)
[2020-08-03] MEDS: ERTAPENEM SOD INJ 1 GM in SODIUM CHL 0.9% 50 ML IV SCH (10:50)
[2020-08-03] MEDS: ASPirin 81 mg TAB PO SCH (10:50)
[2020-08-03] MEDS: ENOXAPARIN SOD 40 MG/0.4 ML SYRINGE SC SCH (10:51)
[2020-08-03] MEDS: ATENOLOL 50 MG TAB PO SCH (10:52)
[2020-08-03] MEDS: HCTZ 25 MG TAB PO SCH (10:53)
[2020-08-03] MEDS: VANCOMYCIN 1GM/250ML 250 ML IV SCH ×2 (12:09→21:33)
[2020-08-03 13:00] VITALS: BP 130/79
[2020-08-03 16:49] VITALS: BP 123/75
[2020-08-03] MEDS: SACUBITRIL-VALSARTAN 24mg/26mg TAB PO SCH (21:33)
[2020-08-03 22:00] VITALS: BP 103/64
[2020-08-04] MEDS: VANCOMYCIN 1GM/250ML 250 ML IV SCH ×3 (04:00→16:26)
[2020-08-04 05:07] VITALS: BP 100/52
[2020-08-04] MEDS: ACCU-CHEK COMFORT CURVE STRIP VI SCH ×4 (06:56→22:28)
[2020-08-04] MEDS: InsuLIN REG 1unit/0.01ml Soln (100units/ml) SC SCH ×4 (06:56→22:31)
[2020-08-04 09:00] VITALS: BP 114/65
[2020-08-04] MEDS: ENOXAPARIN SOD 40 MG/0.4 ML SYRINGE SC SCH (09:50)
[2020-08-04] MEDS: ASPirin 81 mg TAB PO SCH (10:00)
[2020-08-04] MEDS ORDERED: IOHEXOL 350 MG/ML 100ML IJ ONE ×2 (12:22→13:00)
[2020-08-04] MEDS ORDERED: LIDOCAINE 2%HCL (LOCAL ANESTH.) INJ 20ML MDV ONE (12:22)
[2020-08-04] MEDS ORDERED: ANGIOMAX 250 MG VIAL IV ONE (12:23)
[2020-08-04] MEDS ORDERED: SODIUM CHL 0.9% 50 ML ONE (12:24)
[2020-08-04] MEDS ORDERED: MIDAZOLAM HCL 1MG/1ML-2 ML VIAL ONE (12:24)
[2020-08-04] MEDS ORDERED: fentaNYL CITRATE 100 MCG/2 ML VL ONE (12:24)
[2020-08-04] MEDS ORDERED: ASPirin 81 mg TAB ONE (13:11)
[2020-08-04] MEDS ORDERED: TICAGRELOR 90 MG TAB ONE (13:11)
[2020-08-04] MEDS: SACUBITRIL-VALSARTAN 24mg/26mg TAB PO SCH ×2 (15:19→22:27)
[2020-08-04] MEDS: SODIUM CHLOR 0.9% PF (SALINE LOCK) 10ML VIAL/SYR IV SCH ×2 (15:19→22:27)
[2020-08-04] MEDS: ERTAPENEM SOD INJ 1 GM in SODIUM CHL 0.9% 50 ML IV SCH (15:19)
[2020-08-04] MEDS: FAMOTIDINE 20 MG TAB PO SCH ×2 (15:20→22:28)
[2020-08-04] MEDS: HCTZ 25 MG TAB PO SCH (15:20)
[2020-08-04] MEDS: ATENOLOL 50 MG TAB PO SCH (15:21)
[2020-08-04 16:15] VITALS: BP 122/75
[2020-08-04] MEDS: TICAGRELOR 90 MG TAB PO SCH (22:27)
[2020-08-04] MEDS: ATORVASTATIN 20 MG TAB PO SCH (22:28)
[2020-08-04 22:41] VITALS: BP 149/107
[2020-08-05] MEDS: VANCOMYCIN 1GM/250ML 250 ML IV SCH ×2 (03:56→18:50)
[2020-08-05 05:20] VITALS: BP 136/77
[2020-08-05] MEDS: ACCU-CHEK COMFORT CURVE STRIP VI SCH ×4 (06:12→22:22)
[2020-08-05] MEDS: InsuLIN REG 1unit/0.01ml Soln (100units/ml) SC SCH ×4 (06:12→22:00)
[2020-08-05 09:00] VITALS: BP 138/66
[2020-08-05] MEDS: ENOXAPARIN SOD 40 MG/0.4 ML SYRINGE SC SCH (09:10)
[2020-08-05] MEDS: ERTAPENEM SOD INJ 1 GM in SODIUM CHL 0.9% 50 ML IV SCH (09:10)
[2020-08-05] MEDS: ATENOLOL 50 MG TAB PO SCH (09:12)
[2020-08-05] MEDS: FAMOTIDINE 20 MG TAB PO SCH ×2 (09:12→22:22)
[2020-08-05] MEDS: ASPirin 81 mg TAB PO SCH (09:13)
[2020-08-05] MEDS: SACUBITRIL-VALSARTAN 24mg/26mg TAB PO SCH ×2 (09:13→22:22)
[2020-08-05] MEDS: HCTZ 25 MG TAB PO SCH (09:13)
[2020-08-05] MEDS: SODIUM CHLOR 0.9% PF (SALINE LOCK) 10ML VIAL/SYR IV SCH ×2 (09:14→22:21)
[2020-08-05] MEDS: TICAGRELOR 90 MG TAB PO SCH ×2 (09:18→22:22)
[2020-08-05] MEDS: FLUCONAZOLE 200MG/100ML 100 ML IV SCH ×2 (12:54→13:57)
[2020-08-05 13:00] VITALS: BP 122/75
[2020-08-05 16:41] VITALS: BP 121/88
[2020-08-05 22:21] VITALS: BP 123/72
[2020-08-05] MEDS: ATORVASTATIN 20 MG TAB PO SCH (22:22)
[2020-08-06] MEDS: VANCOMYCIN 1GM/250ML 250 ML IV SCH ×2 (04:18→17:08)
[2020-08-06 05:00] VITALS: BP 116/84
[2020-08-06] MEDS: InsuLIN REG 1unit/0.01ml Soln (100units/ml) SC SCH ×4 (06:21→21:36)
[2020-08-06] MEDS: ACCU-CHEK COMFORT CURVE STRIP VI SCH ×4 (06:21→21:36)
[2020-08-06 09:00] VITALS: BP 108/74
[2020-08-06] MEDS: SODIUM CHLOR 0.9% PF (SALINE LOCK) 10ML VIAL/SYR IV SCH ×2 (09:30→21:36)
[2020-08-06] MEDS: ERTAPENEM SOD INJ 1 GM in SODIUM CHL 0.9% 50 ML IV SCH (09:30)
[2020-08-06] MEDS: ENOXAPARIN SOD 40 MG/0.4 ML SYRINGE SC SCH (10:56)
[2020-08-06] MEDS: FLUCONAZOLE 200MG/100ML 100 ML IV SCH ×2 (10:56→12:29)
[2020-08-06] MEDS: SACUBITRIL-VALSARTAN 24mg/26mg TAB PO SCH ×2 (10:56→21:35)
[2020-08-06] MEDS: HCTZ 25 MG TAB PO SCH (10:57)
[2020-08-06] MEDS: ATENOLOL 50 MG TAB PO SCH (10:57)
[2020-08-06] MEDS: ASPirin 81 mg TAB PO SCH (10:57)
[2020-08-06] MEDS: TICAGRELOR 90 MG TAB PO SCH ×2 (10:57→21:35)
[2020-08-06] MEDS: FAMOTIDINE 20 MG TAB PO SCH ×2 (10:57→21:35)
[2020-08-06 13:00] VITALS: BP 126/76
[2020-08-06 17:00] VITALS: BP 109/78
[2020-08-06] MEDS: ATORVASTATIN 20 MG TAB PO SCH (21:36)
[2020-08-06 22:00] VITALS: BP 117/75
[2020-08-07 05:00] VITALS: BP 102/69
[2020-08-07] MEDS: ACCU-CHEK COMFORT CURVE STRIP VI SCH ×4 (06:01→21:10)
[2020-08-07] MEDS: InsuLIN REG 1unit/0.01ml Soln (100units/ml) SC SCH ×4 (06:02→21:11)
[2020-08-07 08:43] VITALS: BP 115/64
[2020-08-07] MEDS: ERTAPENEM SOD INJ 1 GM in SODIUM CHL 0.9% 50 ML IV SCH (09:19)
[2020-08-07] MEDS: SODIUM CHLOR 0.9% PF (SALINE LOCK) 10ML VIAL/SYR IV SCH ×2 (09:20→21:09)
[2020-08-07] MEDS: ASPirin 81 mg TAB PO SCH (09:59)
[2020-08-07] MEDS: HCTZ 25 MG TAB PO SCH (10:00)
[2020-08-07] MEDS: FAMOTIDINE 20 MG TAB PO SCH ×2 (10:00→21:10)
[2020-08-07] MEDS: TICAGRELOR 90 MG TAB PO SCH ×2 (10:00→21:10)
[2020-08-07] MEDS: SACUBITRIL-VALSARTAN 24mg/26mg TAB PO SCH ×2 (10:00→21:09)
[2020-08-07] MEDS: ENOXAPARIN SOD 40 MG/0.4 ML SYRINGE SC SCH (10:01)
[2020-08-07] MEDS: ATENOLOL 50 MG TAB PO SCH (10:01)
[2020-08-07] MEDS: FLUCONAZOLE 200MG/100ML 100 ML IV SCH ×2 (10:50→16:54)
[2020-08-07] MEDS: VANCOMYCIN 1GM/250ML 250 ML IV SCH (11:55)
[2020-08-07 12:43] VITALS: BP 109/74
[2020-08-07 16:42] VITALS: BP 101/67
[2020-08-07] MEDS: ATORVASTATIN 20 MG TAB PO SCH (21:09)
[2020-08-07 22:00] VITALS: BP 106/70
[2020-08-08 05:00] VITALS: BP 97/64
[2020-08-08] MEDS: InsuLIN REG 1unit/0.01ml Soln (100units/ml) SC SCH ×2 (06:36→12:17)
[2020-08-08] MEDS: ACCU-CHEK COMFORT CURVE STRIP VI SCH ×2 (06:36→11:34)
[2020-08-08] MEDS: VANCOMYCIN 1GM/250ML 250 ML IV SCH (06:41)
[2020-08-08 09:09] VITALS: BP 116/63
[2020-08-08] MEDS: ERTAPENEM SOD INJ 1 GM in SODIUM CHL 0.9% 50 ML IV SCH (11:35)
[2020-08-08] MEDS: SODIUM CHLOR 0.9% PF (SALINE LOCK) 10ML VIAL/SYR IV SCH (11:38)
[2020-08-08] MEDS: ASPirin 81 mg TAB PO SCH (11:38)
[2020-08-08] MEDS: HCTZ 25 MG TAB PO SCH (11:39)
[2020-08-08] MEDS: ENOXAPARIN SOD 40 MG/0.4 ML SYRINGE SC SCH (11:41)
[2020-08-08] MEDS: FAMOTIDINE 20 MG TAB PO SCH (11:41)
[2020-08-08] MEDS: ATENOLOL 50 MG TAB PO SCH (11:41)
[2020-08-08] MEDS: TICAGRELOR 90 MG TAB PO SCH (11:42)
[2020-08-08] MEDS: SACUBITRIL-VALSARTAN 24mg/26mg TAB PO SCH (12:16)
[2020-08-08] MEDS: FLUCONAZOLE 200MG/100ML 100 ML IV SCH ×2 (12:25→13:46)
[2020-08-08 12:34] VITALS: BP 118/78
[2020-08-08 14:44] VITALS: BP 118/78
== END 2020-08-08 17:00 | disposition home health service (06) | DRG 246 ==
LOC: ER 14:49 → TELE 21:24 → TELE-WESTW 08-03 09:32
PROVIDERS: ADMIT Nurse Practitioner; ATTEND Family Medicine
PROC: 02HV33Z Insertion of Infusion Device into Superior Vena Cava, Percutaneous Approach (ICD-10-PCS; 2020-08-02)
PROC: 027034Z Dilation of Coronary Artery, One Artery with Drug-eluting Intraluminal Device, Percutaneous Approach (ICD-10-PCS; principal; 2020-08-04)
PROC: 4A023N7 Measurement of Cardiac Sampling and Pressure, Left Heart, Percutaneous Approach (ICD-10-PCS; 2020-08-04)
PROC: B2111ZZ Fluoroscopy of Multiple Coronary Arteries using Low Osmolar Contrast (ICD-10-PCS; 2020-08-04)
PROC: B2151ZZ Fluoroscopy of Left Heart using Low Osmolar Contrast (ICD-10-PCS; 2020-08-04)
PROC: B240ZZ3 Ultrasonography of Single Coronary Artery, Intravascular (ICD-10-PCS; 2020-08-04)
DX: T82.524A Displacement of infusion catheter, initial encounter (principal); I21.4 Non-ST elevation (NSTEMI) myocardial infarction; I50.21 Acute systolic (congestive) heart failure; E44.1 Mild protein-calorie malnutrition; G82.20 Paraplegia, unspecified; N39.0 Urinary tract infection, site not specified; I25.10 Atherosclerotic heart disease of native coronary artery without angina pectoris; L89.90 Pressure ulcer of unspecified site, unspecified stage; E11.9 Type 2 diabetes mellitus without complications; D64.9 Anemia, unspecified; E87.6 Hypokalemia; I11.0 Hypertensive heart disease with heart failure; Z20.822 Contact with and (suspected) exposure to COVID-19; E78.00 Pure hypercholesterolemia, unspecified; E78.5 Hyperlipidemia, unspecified; Y83.8 Other surgical procedures as the cause of abnormal reaction of the patient, or of later complication, without mention of misadventure at the time of the procedure; Z68.33 Body mass index [BMI] 33.0-33.9, adult; Y92.89 Other specified places as the place of occurrence of the external cause; Z74.01 Bed confinement status; B37.9 Candidiasis, unspecified
CPT/HCPCS: 36415; 36569; 71045; 80053; 80202; 81001; 82565; 82962; 83880; 84484; 85025; 85610; 85730; 86850; 86900; 86901; 87040; 87070; 87077; 87081; 87086; 87088; 87205; 87426; 92928; 93005; 93306; 93458; 96365; 96367; 96372; C1887; G0378; J1335; J1450; J1815; J2250

== ENCOUNTER → 2020-08-25 | Outpatient (CLI) | payer MEDICARE, MEDICAID ==
[~2020-08-25] MED LIST changes: -ROC2INJ10 IV
== END | disposition home or self-care (01) ==
LOC: Rad HDHVI 08:05
PROVIDERS: ATTEND Internal Medicine Cardiovascular Disease
DX: I11.0 Hypertensive heart disease with heart failure (principal); I50.21 Acute systolic (congestive) heart failure
CPT/HCPCS: 93306

== ENCOUNTER → 2020-09-08 | Outpatient (CLI) | payer MEDICARE, MEDICAID | END | disposition home or self-care (01) | LOC: LAB 15:10 | PROVIDERS: ATTEND Urology | DX: N39.0 Urinary tract infection, site not specified (principal) | CPT/HCPCS: 87086 ==

== ENCOUNTER → 2020-09-13 | Outpatient (CLI) | payer MEDICARE, MEDICAID ==
[~2020-09-13] VITALS: Ht 180.3 cm; Wt 94.3 kg
[~2020-09-13] MED LIST changes: +ADENOSINE 79 MG in GIVE UN-DILUTED 0 ML IV ONE; +ADENOSINE 90 MG/30 ML INJ IV ONE
== END | disposition home or self-care (01) ==
LOC: Rad HDHVI 08:05
PROVIDERS: ATTEND Internal Medicine Cardiovascular Disease
DX: I11.0 Hypertensive heart disease with heart failure (principal); I50.33 Acute on chronic diastolic (congestive) heart failure; I25.10 Atherosclerotic heart disease of native coronary artery without angina pectoris; E11.9 Type 2 diabetes mellitus without complications; E78.5 Hyperlipidemia, unspecified; F17.210 Nicotine dependence, cigarettes, uncomplicated
CPT/HCPCS: 78452; 93005; 96374; 96375; A9500; J0153

== ENCOUNTER → 2020-10-13 | Outpatient (CLI) | payer MEDICARE, MEDICAID ==
[~2020-10-13] MED LIST changes: -ADENOSINE 79 MG in GIVE UN-DILUTED 0 ML IV ONE; -ADENOSINE 90 MG/30 ML INJ IV ONE
[2020-10-13 09:15] VITALS: BP 134/76
[2020-10-13 09:39] VITALS: BP 117/70
[2020-10-13 11:33] LABS: Basophils # (auto) 0 10 ^3/uL (0-0.2); Basophils % (auto) 0.4 % (0.0-2.0); Eosinophils # (auto) 0.3 10 ^3/uL (0-0.8); Lymphocytes # (auto) 2.3 10 ^3/uL (0.4-5.4); Monocytes # (auto) 0.3 10 ^3/uL (0-1.3); White Blood Cell 8.8 10^3/uL (4.4-10.8)
[2020-10-13 11:35] LABS: Eosinophils % (auto) 3.5 % (0.0-7.0); Hematocrit 41.1 % (41.0-53.0); Hemoglobin 13.8 g/dL (13.5-17.5); Lymphocytes % (auto) 25.6 % (10.0-50.0); Mean Corpuscular Hemoglobin 25.6 pg (28.0-32.0); Mean Corpuscular Hgb Conc. 33.6 g/dL (32.0-36.0); Mean Corpuscular Volume 76.2 fL (80.0-100.0); Monocytes % (auto) 3.5 % (0.0-12.0); Neutrophils # (auto) 5.9 10 ^3/uL (1.6-8.6); Nucleated Red Blood Cells % 0.1 %; Red Blood Cells 5.39 10^6/uL (4.5-5.90)
[2020-10-13 11:48] LABS: INR 1.06 (0.9-1.15)
[2020-10-13 12:00] LABS: BUN/Creatinine Ratio 22.7; Calcium 8.7 mg/dL (8.5-10.1); Potassium 3.8 mmol/L (3.5-5.1)
== END | disposition home or self-care (01) ==
LOC: Rad HDHVI 08:59
PROVIDERS: ATTEND Internal Medicine Cardiovascular Disease
DX: Z01.812 Encounter for preprocedural laboratory examination (principal); I11.0 Hypertensive heart disease with heart failure; I50.21 Acute systolic (congestive) heart failure
CPT/HCPCS: 36415; 71046; 80048; 85025; 85610; 85730; 93005; G0463

== ENCOUNTER 2020-10-18 11:46 | Day surgery (SDC) | payer MEDICARE, MEDICAID ==
[~2020-10-18] VITALS: Ht 180.3 cm; Wt 94.5 kg
[2020-10-18] MEDS ORDERED: VANCOMYCIN 1GM/250ML 250 ML IV ONE (12:32)
[2020-10-18] MEDS ORDERED: LIDOCAINE 2%HCL (LOCAL ANESTH.) INJ 20ML MDV ONE ×2 (12:34)
[2020-10-18] MEDS ORDERED: IOHEXOL 350 MG/ML 100ML IJ ONE (12:34)
[2020-10-18] MEDS ORDERED: VANCOMYCIN HCL 1000 MG VL ONE (14:15)
[2020-10-18] MEDS ORDERED: MIDAZOLAM HCL 2MG/2ML 2ml VIAL (1mg/ml) ONE ×2 (14:16→15:08)
[2020-10-18] MEDS ORDERED: fentaNYL CITRATE 100 MCG/2 ML VL ONE (14:16)
[2020-10-18] MEDS ORDERED: diphenhdrAMINE HCL 50 MG/1 ML VL ONE (14:45)
[2020-10-18] MEDS ORDERED: ACETAMINOPHEN 325 MG TAB PO PRN (16:45)
[2020-10-18] MEDS ORDERED: HYDROcodone-ACET 5/325MG TAB PO PRN (16:45)
== END 2020-10-18 18:01 | disposition home or self-care (01) ==
LOC: CATH 11:46
PROVIDERS: ATTEND Internal Medicine Cardiovascular Disease
DX: R06.02 Shortness of breath (principal); I42.1 Obstructive hypertrophic cardiomyopathy; E78.5 Hyperlipidemia, unspecified; I45.19 Other right bundle-branch block; I25.2 Old myocardial infarction; E11.9 Type 2 diabetes mellitus without complications; I11.0 Hypertensive heart disease with heart failure; A41.89 Other specified sepsis; E66.9 Obesity, unspecified; K76.0 Fatty (change of) liver, not elsewhere classified; R07.89 Other chest pain; Z79.899 Other long term (current) drug therapy; Z20.822 Contact with and (suspected) exposure to COVID-19; Z98.890 Other specified postprocedural states
CPT/HCPCS: 33249; 71045; 93005; C1769; C1785; C1887; C1892; C1895; C1898; J1200; J2250; J3010; J3370; Q9967; U0003; 99152; 99153

== ENCOUNTER → 2020-10-19 | Outpatient (CLI) | payer MEDICARE, MEDICAID | END | disposition home or self-care (01) | LOC: Rad HDHVI 09:44 | PROVIDERS: ATTEND Internal Medicine Cardiovascular Disease | DX: R07.89 Other chest pain (principal); Z95.810 Presence of automatic (implantable) cardiac defibrillator | CPT/HCPCS: 71046 ==

== ENCOUNTER → 2020-11-23 | Outpatient (CLI) | payer MEDICARE, MEDICAID ==
[2020-11-23 15:05] LABS: Basophils # (auto) 0 10 ^3/uL (0-0.2); Eosinophils # (auto) 0 10 ^3/uL (0-0.8); Eosinophils % (auto) 0.7 % (0.0-7.0); Lymphocytes # (auto) 0.8 10 ^3/uL (0.4-5.4); Mean Corpuscular Volume 76.5 fL (80.0-100.0); Monocytes # (auto) 0.2 10 ^3/uL (0-1.3); White Blood Cell 5.1 10^3/uL (4.4-10.8)
[2020-11-23 15:07] LABS: Basophils % (auto) 0.9 % (0.0-2.0); Hematocrit 36.2 % (41.0-53.0); Hemoglobin 12.6 g/dL (13.5-17.5); Lymphocytes % (auto) 15.7 % (10.0-50.0); Mean Corpuscular Hemoglobin 26.6 pg (28.0-32.0); Mean Corpuscular Hgb Conc. 34.7 g/dL (32.0-36.0); Monocytes % (auto) 4.2 % (0.0-12.0); Neutrophils % (auto) 78.5 % (37.0-80.0); Red Blood Cells 4.73 10^6/uL (4.5-5.90); Red Cell Distribution Width 19.6 % (11.8-14.3)
[2020-11-23 15:17] LABS: Urine Amorphous Crystal FEW /hpf (None Seen); Urine Bacteria FEW /hpf (None Seen); Urine Blood Negative /uL (Negative); Urine Mucus FEW (None Seen); Urine Specific Gravity 1.011 (1.001-1.035); Urine WBC 29 /hpf (0 - 3); Urine WBC Clumps PRESENT /hpf (None Seen)
[2020-11-23 15:29] LABS: BUN/Creatinine Ratio 13.9; Calcium 8.3 mg/dL (8.5-10.1); Potassium 4.4 mmol/L (3.5-5.1)
[2020-11-23 15:32] LABS: INR 1.1 (0.9-1.15); Partial Thromboplastin Time 35.8 sec (23.6-33.0)
== END | disposition home or self-care (01) ==
LOC: LAB 14:47
PROVIDERS: ATTEND Urology
DX: Z01.818 Encounter for other preprocedural examination (principal); D53.8 Other specified nutritional anemias; M79.89 Other specified soft tissue disorders; N39.0 Urinary tract infection, site not specified; N31.0 Uninhibited neuropathic bladder, not elsewhere classified; D53.9 Nutritional anemia, unspecified
CPT/HCPCS: 36415; 80048; 81001; 85025; 85610; 85730; 87086

== ENCOUNTER → 2020-12-28 | Outpatient (CLI) | payer MEDICARE, MEDICAID ==
[2020-12-28 12:37] LABS: INR 1.08 (0.9-1.15); Partial Thromboplastin Time 30.5 sec (23.6-33.0)
[2020-12-28 12:38] LABS: Urine Bacteria FEW /hpf (None Seen); Urine Blood 1+ /uL (Negative); Urine Specific Gravity 1.011 (1.001-1.035); Urine WBC 88 /hpf (0 - 3)
[2020-12-28 12:55] LABS: Basophils # (auto) 0 10 ^3/uL (0-0.2); Basophils % (auto) 0.7 % (0.0-2.0); Eosinophils # (auto) 0.3 10 ^3/uL (0-0.8); Eosinophils % (auto) 4.1 % (0.0-7.0); Hematocrit 35.4 % (41.0-53.0); Hemoglobin 12.1 g/dL (13.5-17.5); Lymphocytes # (auto) 1.2 10 ^3/uL (0.4-5.4); Lymphocytes % (auto) 19.5 % (10.0-50.0); Mean Corpuscular Hemoglobin 27.6 pg (28.0-32.0); Mean Corpuscular Hgb Conc. 34.3 g/dL (32.0-36.0); Mean Corpuscular Volume 80.4 fL (80.0-100.0); Monocytes # (auto) 0.3 10 ^3/uL (0-1.3); Neutrophils # (auto) 4.5 10 ^3/uL (1.6-8.6); Neutrophils % (auto) 71.7 % (37.0-80.0); Nucleated Red Blood Cells % 0.1 %; Red Cell Distribution Width 19.7 % (11.8-14.3); White Blood Cell 6.3 10^3/uL (4.4-10.8)
[2020-12-28 13:02] LABS: BUN/Creatinine Ratio 17.7; Potassium 3.6 mmol/L (3.5-5.1)
== END | disposition home or self-care (01) ==
LOC: LAB 12:01
PROVIDERS: ATTEND Urology
DX: Z01.818 Encounter for other preprocedural examination (principal); D53.8 Other specified nutritional anemias; M79.89 Other specified soft tissue disorders; N39.0 Urinary tract infection, site not specified
CPT/HCPCS: 36415; 80048; 81001; 85025; 85610; 85730; 87086

== ENCOUNTER → 2021-03-20 | Outpatient (CLI) | payer MEDICARE, MEDICAID | END | disposition home or self-care (01) | LOC: Rad HDHVI 10:00 | PROVIDERS: ATTEND Internal Medicine Cardiovascular Disease | DX: I10 Essential (primary) hypertension (principal); R06.02 Shortness of breath | CPT/HCPCS: 93306 ==

== ENCOUNTER → 2021-09-18 | Outpatient (CLI) | payer MEDICARE, MEDICAID ==
[2021-09-18 12:54] LABS: Basophils # (auto) 0 10 ^3/uL (0-0.2); Basophils % (auto) 0.4 % (0.0-2.0); Hemoglobin 10.5 g/dL (13.5-17.5); Lymphocytes # (auto) 1.8 10 ^3/uL (0.4-5.4); Mean Corpuscular Hgb Conc. 32.3 g/dL (32.0-36.0)
[2021-09-18 12:56] LABS: Eosinophils # (auto) 0.1 10 ^3/uL (0-0.8); Eosinophils % (auto) 1.6 % (0.0-7.0); Hematocrit 32.6 % (41.0-53.0); Lymphocytes % (auto) 20.8 % (10.0-50.0); Mean Corpuscular Hemoglobin 24.5 pg (28.0-32.0); Mean Corpuscular Volume 75.8 fL (80.0-100.0); Monocytes # (auto) 0.4 10 ^3/uL (0-1.3); Monocytes % (auto) 4.6 % (0.0-12.0); Neutrophils # (auto) 6.3 10 ^3/uL (1.6-8.6); Neutrophils % (auto) 72.6 % (37.0-80.0); Red Cell Distribution Width 17.8 % (11.8-14.3); White Blood Cell 8.7 10^3/uL (4.4-10.8)
[2021-09-18 13:16] LABS: Albumin 2.8 g/dL (3.4-5.0); Calcium 8.8 mg/dL (8.5-10.1); Potassium 3.5 mmol/L (3.5-5.1)
[2021-09-18 13:20] LABS: BUN/Creatinine Ratio 14.3; Bilirubin, Total 0.5 mg/dL (0.2-1.0); Total Protein 8.4 g/dL (6.4-8.2)
== END | disposition home or self-care (01) ==
LOC: LAB 12:37
PROVIDERS: ATTEND Nurse Practitioner Family
DX: I42.0 Dilated cardiomyopathy (principal); E11.8 Type 2 diabetes mellitus with unspecified complications; I10 Essential (primary) hypertension; Z00.00 Encounter for general adult medical examination without abnormal findings
CPT/HCPCS: 36415; 80053; 80061; 82043; 83036; 85025

== ENCOUNTER → 2021-09-21 | Outpatient (CLI) | payer MEDICARE, MEDICAID ==
[~2021-09-21] MED LIST changes: +ASPI325T4 PO; +CARV12.544 PO; +EMPA1TAB3 PO; +FESO8TAB PO; +SACU1TAB PO; +TICA1TAB PO; +TRIATAB3 PO
== END | disposition home or self-care (01) ==
LOC: Rad HDHVI 13:02
PROVIDERS: ATTEND Internal Medicine Cardiovascular Disease
DX: I34.0 Nonrheumatic mitral (valve) insufficiency (principal); I51.7 Cardiomegaly; I42.0 Dilated cardiomyopathy
CPT/HCPCS: 93306

== ENCOUNTER 2021-10-01 16:27 | Inpatient (IN) | payer MEDICARE, MEDICAID ==
[~2021-10-01] VITALS: Ht 170.2 cm; Wt 91.1 kg
[~2021-10-01 16:27] MED LIST changes: -ASPI325T4 PO; -CARV12.544 PO; -EMPA1TAB3 PO; -FESO8TAB PO; -SACU1TAB PO; -TICA1TAB PO; -TRIATAB3 PO
[2021-10-01] MEDS ORDERED: ONDANSETRON HCL 4 MG/2 ML VIAL IV ONE (17:30)
[2021-10-01] MEDS ORDERED: cefTRIAXone 1GM/50ML D5W 50 ML IV ONE (17:30)
[2021-10-01] MEDS ORDERED: AZITHROMYCIN 500MG/ 250ML 250 ML IV ONE (17:30)
[2021-10-01] MEDS ORDERED: SODIUM CHLORIDE 0.9% 1,000 ML IVB ONE (17:30)
[2021-10-01 18:11] LABS: Basophils # (auto) 0.1 10 ^3/uL (0-0.2); Basophils % (auto) 0.7 % (0.0-2.0); Eosinophils # (auto) 0 10 ^3/uL (0-0.8); Eosinophils % (auto) 0.1 % (0.0-7.0); Hematocrit 31.6 % (41.0-53.0); Hemoglobin 10.1 g/dL (13.5-17.5); Lymphocytes # (auto) 0.6 10 ^3/uL (0.4-5.4); Lymphocytes % (auto) 4.1 % (10.0-50.0); Mean Corpuscular Volume 74.9 fL (80.0-100.0); Monocytes # (auto) 0.5 10 ^3/uL (0-1.3); Monocytes % (auto) 3.7 % (0.0-12.0); Neutrophils # (auto) 13.3 10 ^3/uL (1.6-8.6); Neutrophils % (auto) 91.4 % (37.0-80.0); Red Blood Cells 4.21 10^6/uL (4.5-5.90); Red Cell Distribution Width 17.2 % (11.8-14.3); White Blood Cell 14.6 10^3/uL (4.4-10.8)
[2021-10-01] MEDS: NOREPINEPHRINE 8 MG/250ML KIT 250 ML IV SCH (18:15)
[2021-10-01 18:31] LABS: Albumin 1.9 g/dL (3.4-5.0); BUN/Creatinine Ratio 12.3
[2021-10-01 18:33] LABS: Potassium 4.9 mmol/L (3.5-5.1)
[2021-10-01 18:34] LABS: Bilirubin, Total 1.1 mg/dL (0.2-1.0); INR 1.21 (0.9-1.15); Lactic Acid w/Reflex 2.5 mmol/L (0.4-2.0); Partial Thromboplastin Time 30.3 sec (24.6-33.4); Total Protein 7.1 g/dL (6.4-8.2)
[2021-10-01] MEDS ORDERED: SODIUM CHLORIDE 0.9% 1,000 ML IV ONE (19:45)
[2021-10-01] MEDS ORDERED: PIPERACILLIN-TAZO 4.5GM 100 ML IV ONE (22:15)
[2021-10-01] MEDS ORDERED: VANCOMYCIN 1GM/250ML 250 ML IV ONE (22:15)
[2021-10-02] MEDS ORDERED: SODIUM CHLORIDE 0.9% 1,000 ML IV ONE
[2021-10-02 01:52] LABS: Urine Bacteria FEW /hpf (None Seen); Urine Blood Negative /uL (Negative); Urine Budding Yeast MANY /hpf (None Seen); Urine Specific Gravity 1.008 (1.001-1.035); Urine WBC 108 /hpf (0 - 3); Urine WBC Clumps PRESENT /hpf (None Seen)
[2021-10-02] MEDS: NOREPINEPHRINE 8 MG/250ML KIT 250 ML IV SCH ×4 (04:45→20:04)
[2021-10-02] MEDS ORDERED: PIPERACILLIN-TAZO 4.5GM 100 ML IV SCH (06:00)
[2021-10-02] MEDS: LINEZOLID 600MG/300ML 300 ML IV SCH ×2 (09:41→22:50)
[2021-10-02] MEDS: MEROPENEM 1GM IVPB 100 ML IV SCH (12:01)
[2021-10-02] MEDS ORDERED: DEXTROSE (50%) 50ML SYRG IV PRN (12:30)
[2021-10-02] MEDS: SODIUM CHLORIDE 0.9% 1,000 ML IV SCH (12:30)
[2021-10-02] MEDS: ACCU-CHEK COMFORT CURVE STRIP VI SCH ×2 (18:36→23:11)
[2021-10-02] MEDS: InsuLIN REG 1unit/0.01ml Soln (100units/ml) SC SCH ×2 (18:43→22:15)
[2021-10-02] MEDS ORDERED: VANCOMYCIN 1GM/250ML 250 ML IV SCH (20:00)
[2021-10-02] MEDS: TICAGRELOR 60 MG TAB PO SCH (22:00)
[2021-10-03] MEDS: MEROPENEM 1GM IVPB 100 ML IV SCH ×3 (02:18→23:19)
[2021-10-03] MEDS: SODIUM CHLORIDE 0.9% 1,000 ML IV SCH ×2 (02:19→15:11)
[2021-10-03] MEDS ORDERED: AMIODARONE HCL 150 MG in D5W 5% 100 ML IV ONE (05:45)
[2021-10-03] MEDS ORDERED: AMIODARONE HCL (50 MG/ ML) 3 ML VIAL IV ONE (05:47)
[2021-10-03] MEDS ORDERED: AMIODARONE 450mg/250ml AE 250 ML IV ONE (05:49)
[2021-10-03] MEDS: InsuLIN REG 1unit/0.01ml Soln (100units/ml) SC SCH ×4 (07:19→22:00)
[2021-10-03] MEDS: ACCU-CHEK COMFORT CURVE STRIP VI SCH ×4 (07:19→21:56)
[2021-10-03] MEDS: LINEZOLID 600MG/300ML 300 ML IV SCH ×2 (10:26→20:55)
[2021-10-03] MEDS: DAPAGLIFLOZIN 5 MG TAB PO SCH (10:26)
[2021-10-03] MEDS: TICAGRELOR 60 MG TAB PO SCH ×2 (10:49→22:07)
[2021-10-03] MEDS ORDERED: AMIODARONE 450mg/250ml AE 250 ML IV SCH (12:00)
[2021-10-03] MEDS: NOREPINEPHRINE 8 MG/250ML KIT 250 ML IV SCH ×2 (12:07→17:14)
[2021-10-03] MEDS ORDERED: LIDOCAINE 1% (LOCAL ANESTH.) PF 5ml SDV ID ONE (13:30)
[2021-10-03] MEDS ORDERED: ALBUMIN 5% 500 ML IV ONE (20:30)
[2021-10-03] MEDS: SODIUM CHLOR 0.9% PF (SALINE LOCK) 10ML VIAL/SYR IV SCH (20:55)
[2021-10-03] MEDS: AMIODARONE HCL 200 MG TAB PO SCH (22:07)
[2021-10-04] VITALS (54 sets, daily range): BP systolic 87–126; BP diastolic 41–73
[2021-10-04] MEDS: SODIUM CHLORIDE 0.9% 1,000 ML IV SCH ×2 (04:30→18:29)
[2021-10-04] MEDS ORDERED: ACETAMINOPHEN 500 MG TAB PO ONE (05:15)
[2021-10-04] MEDS: ACCU-CHEK COMFORT CURVE STRIP VI SCH ×4 (07:49→22:20)
[2021-10-04] MEDS: InsuLIN REG 1unit/0.01ml Soln (100units/ml) SC SCH ×4 (07:50→22:12)
[2021-10-04] MEDS: TICAGRELOR 60 MG TAB PO SCH ×2 (10:00→22:07)
[2021-10-04] MEDS: LINEZOLID 600MG/300ML 300 ML IV SCH ×2 (11:09→21:06)
[2021-10-04] MEDS: SODIUM CHLOR 0.9% PF (SALINE LOCK) 10ML VIAL/SYR IV SCH ×2 (11:10→22:20)
[2021-10-04] MEDS: AMIODARONE HCL 200 MG TAB PO SCH ×2 (11:12→22:07)
[2021-10-04] MEDS: DAPAGLIFLOZIN 5 MG TAB PO SCH (11:12)
[2021-10-04] MEDS: MEROPENEM 1GM IVPB 100 ML IV SCH ×2 (11:15→23:05)
[2021-10-04] MEDS ORDERED: FESO8TAB PO (11:29)
[2021-10-04] MEDS ORDERED: TICA1TAB PO (11:29)
[2021-10-04] MEDS ORDERED: TRIATAB3 PO (11:29)
[2021-10-04] MEDS ORDERED: CARV12.544 PO (11:29)
[2021-10-04] MEDS ORDERED: EMPA1TAB3 PO (11:29)
[2021-10-04] MEDS ORDERED: SACU1TAB PO (11:29)
[2021-10-04] MEDS ORDERED: ASPI325T4 PO (11:29)
[2021-10-04] MEDS: NOREPINEPHRINE 8 MG/250ML KIT 250 ML IV SCH (19:18)
[2021-10-05] VITALS (72 sets, daily range): BP systolic 79–136; BP diastolic 30–75
[2021-10-05 04:06] LABS: Basophils # (auto) 0.1 10 ^3/uL (0-0.2); Basophils % (auto) 0.5 % (0.0-2.0); Eosinophils # (auto) 0 10 ^3/uL (0-0.8); Eosinophils % (auto) 0.2 % (0.0-7.0); Hematocrit 28.7 % (41.0-53.0); Hemoglobin 9.1 g/dL (13.5-17.5); Lymphocytes # (auto) 1.1 10 ^3/uL (0.4-5.4); Lymphocytes % (auto) 6.6 % (10.0-50.0); Mean Corpuscular Hemoglobin 23.6 pg (28.0-32.0); Mean Corpuscular Hgb Conc. 31.8 g/dL (32.0-36.0); Mean Corpuscular Volume 74.3 fL (80.0-100.0); Monocytes # (auto) 0.7 10 ^3/uL (0-1.3); Monocytes % (auto) 4.4 % (0.0-12.0); Neutrophils % (auto) 88.3 % (37.0-80.0); Red Blood Cells 3.86 10^6/uL (4.5-5.90); Red Cell Distribution Width 17.1 % (11.8-14.3); White Blood Cell 15.9 10^3/uL (4.4-10.8)
[2021-10-05 04:20] LABS: Albumin 1.9 g/dL (3.4-5.0); Calcium 7.9 mg/dL (8.5-10.1); Potassium 3.3 mmol/L (3.5-5.1)
[2021-10-05 04:22] LABS: BUN/Creatinine Ratio 18.9
[2021-10-05 04:24] LABS: Bilirubin, Total 0.5 mg/dL (0.2-1.0); Phosphorus 2.8 mg/dL (2.5-4.90); Total Protein 6.3 g/dL (6.4-8.2)
[2021-10-05] MEDS: InsuLIN REG 1unit/0.01ml Soln (100units/ml) SC SCH ×4 (06:26→21:32)
[2021-10-05] MEDS: ACCU-CHEK COMFORT CURVE STRIP VI SCH ×4 (06:27→21:32)
[2021-10-05] MEDS: SODIUM CHLORIDE 0.9% 1,000 ML IV SCH (08:00)
[2021-10-05] MEDS: POTASSIUM CHL 20MEQ/100ML 100 ML IV SCH ×3 (08:01→11:50)
[2021-10-05] MEDS ORDERED: MAGNESIUM SULFATE 1GM/100ML 100 ML IV ONE (08:45)
[2021-10-05] MEDS: LINEZOLID 600MG/300ML 300 ML IV SCH ×2 (08:59→21:19)
[2021-10-05] MEDS: AMIODARONE HCL 200 MG TAB PO SCH ×2 (08:59→21:20)
[2021-10-05] MEDS: SODIUM CHLOR 0.9% PF (SALINE LOCK) 10ML VIAL/SYR IV SCH ×2 (09:00→21:19)
[2021-10-05] MEDS: DAPAGLIFLOZIN 5 MG TAB PO SCH (09:00)
[2021-10-05] MEDS: MAGNESIUM SULFATE 1GM/100ML 100 ML IV SCH ×4 (09:28→12:14)
[2021-10-05] MEDS: TICAGRELOR 60 MG TAB PO SCH ×2 (09:48→21:20)
[2021-10-05] MEDS: MEROPENEM 1GM IVPB 100 ML IV SCH ×2 (11:29→23:15)
[2021-10-05] MEDS: NOREPINEPHRINE 8 MG/250ML KIT 250 ML IV SCH (12:28)
[2021-10-06] VITALS (24 sets, daily range): BP systolic 85–115; BP diastolic 44–60
[2021-10-06 04:24] LABS: Albumin 1.8 g/dL (3.4-5.0); BUN/Creatinine Ratio 17.4; Calcium 8.2 mg/dL (8.5-10.1); Magnesium 2.1 mg/dL (1.6-2.6); Potassium 3.5 mmol/L (3.5-5.1)
[2021-10-06 04:26] LABS: Bilirubin, Total 0.4 mg/dL (0.2-1.0); Total Protein 6.4 g/dL (6.4-8.2)
[2021-10-06] MEDS: InsuLIN REG 1unit/0.01ml Soln (100units/ml) SC SCH ×4 (06:19→22:39)
[2021-10-06] MEDS: ACCU-CHEK COMFORT CURVE STRIP VI SCH ×4 (06:19→22:39)
[2021-10-06] MEDS: SODIUM CHLORIDE 0.9% 1,000 ML IV SCH ×3 (06:19→22:38)
[2021-10-06] MEDS: TICAGRELOR 60 MG TAB PO SCH ×2 (09:21→23:22)
[2021-10-06] MEDS: LINEZOLID 600MG/300ML 300 ML IV SCH ×2 (09:21→22:38)
[2021-10-06] MEDS: SODIUM CHLOR 0.9% PF (SALINE LOCK) 10ML VIAL/SYR IV SCH ×2 (09:21→22:39)
[2021-10-06] MEDS: AMIODARONE HCL 200 MG TAB PO SCH ×2 (09:22→22:39)
[2021-10-06] MEDS: DAPAGLIFLOZIN 5 MG TAB PO SCH (09:22)
[2021-10-06] MEDS: MEROPENEM 1GM IVPB 100 ML IV SCH (11:42)
[2021-10-07] MEDS: MEROPENEM 1GM IVPB 100 ML IV SCH ×3 (00:46→23:05)
[2021-10-07 05:11] VITALS: BP 108/57
[2021-10-07] MEDS: ACCU-CHEK COMFORT CURVE STRIP VI SCH ×4 (06:12→21:51)
[2021-10-07] MEDS: InsuLIN REG 1unit/0.01ml Soln (100units/ml) SC SCH ×4 (06:12→21:51)
[2021-10-07 09:00] VITALS: BP 101/58
[2021-10-07] MEDS: LINEZOLID 600MG/300ML 300 ML IV SCH ×2 (09:55→20:50)
[2021-10-07] MEDS: SODIUM CHLOR 0.9% PF (SALINE LOCK) 10ML VIAL/SYR IV SCH ×2 (09:55→21:01)
[2021-10-07] MEDS: AMIODARONE HCL 200 MG TAB PO SCH ×2 (09:56→21:52)
[2021-10-07] MEDS: TICAGRELOR 60 MG TAB PO SCH ×2 (09:56→21:51)
[2021-10-07] MEDS: DAPAGLIFLOZIN 5 MG TAB PO SCH (09:56)
[2021-10-07] MEDS: SODIUM CHLORIDE 0.9% 1,000 ML IV SCH ×2 (12:30→21:00)
[2021-10-07 13:00] VITALS: BP 102/60
[2021-10-07 17:00] VITALS: BP 110/67
[2021-10-07 22:00] VITALS: BP 90/57
[2021-10-08 05:00] VITALS: BP 96/54
[2021-10-08] MEDS: ACCU-CHEK COMFORT CURVE STRIP VI SCH ×4 (06:50→22:28)
[2021-10-08] MEDS: InsuLIN REG 1unit/0.01ml Soln (100units/ml) SC SCH ×4 (06:51→22:33)
[2021-10-08] MEDS: SODIUM CHLOR 0.9% PF (SALINE LOCK) 10ML VIAL/SYR IV SCH ×2 (08:26→22:40)
[2021-10-08] MEDS: DAPAGLIFLOZIN 5 MG TAB PO SCH (08:26)
[2021-10-08] MEDS: TICAGRELOR 60 MG TAB PO SCH ×2 (08:27→22:21)
[2021-10-08] MEDS: AMIODARONE HCL 200 MG TAB PO SCH ×2 (08:27→22:21)
[2021-10-08] MEDS: LINEZOLID 600MG/300ML 300 ML IV SCH ×2 (08:28→21:37)
[2021-10-08 09:00] VITALS: BP 116/63
[2021-10-08] MEDS: MEROPENEM 1GM IVPB 100 ML IV SCH ×2 (11:51→23:27)
[2021-10-08 13:00] VITALS: BP 114/70
[2021-10-08] MEDS: SODIUM CHLORIDE 0.9% 1,000 ML IV SCH (15:10)
[2021-10-08 17:00] VITALS: BP 114/70
[2021-10-08 22:00] VITALS: BP 109/58
[2021-10-09 05:00] VITALS: BP 98/54
[2021-10-09] MEDS: SODIUM CHLORIDE 0.9% 1,000 ML IV SCH (06:17)
[2021-10-09] MEDS: ACCU-CHEK COMFORT CURVE STRIP VI SCH ×4 (06:43→22:12)
[2021-10-09] MEDS: InsuLIN REG 1unit/0.01ml Soln (100units/ml) SC SCH ×4 (06:43→22:00)
[2021-10-09 09:00] VITALS: BP 115/68
[2021-10-09] MEDS: LINEZOLID 600MG/300ML 300 ML IV SCH ×2 (09:27→21:52)
[2021-10-09] MEDS: DAPAGLIFLOZIN 5 MG TAB PO SCH (10:15)
[2021-10-09] MEDS: SODIUM CHLOR 0.9% PF (SALINE LOCK) 10ML VIAL/SYR IV SCH ×2 (10:16→21:58)
[2021-10-09] MEDS: AMIODARONE HCL 200 MG TAB PO SCH ×2 (10:16→10:17)
[2021-10-09] MEDS: TICAGRELOR 60 MG TAB PO SCH ×2 (10:16→22:06)
[2021-10-09 10:55] LABS: Basophils # (auto) 0 10 ^3/uL (0-0.2); Basophils % (auto) 0.2 % (0.0-2.0); Eosinophils # (auto) 0.1 10 ^3/uL (0-0.8); Eosinophils % (auto) 1.2 % (0.0-7.0); Hemoglobin 7.9 g/dL (13.5-17.5); Monocytes # (auto) 0.3 10 ^3/uL (0-1.3); Nucleated Red Blood Cells % 0.1 %
[2021-10-09 10:56] LABS: Lymphocytes % (auto) 16.4 % (10.0-50.0); Mean Corpuscular Hemoglobin 23.7 pg (28.0-32.0); Mean Corpuscular Hgb Conc. 31.8 g/dL (32.0-36.0); Monocytes % (auto) 4.5 % (0.0-12.0); Neutrophils # (auto) 4.9 10 ^3/uL (1.6-8.6); Neutrophils % (auto) 77.7 % (37.0-80.0); Red Blood Cells 3.31 10^6/uL (4.5-5.90); Red Cell Distribution Width 17.1 % (11.8-14.3); White Blood Cell 6.3 10^3/uL (4.4-10.8)
[2021-10-09 11:02] LABS: Albumin 1.8 g/dL (3.4-5.0); BUN/Creatinine Ratio 13.6; Calcium 8.2 mg/dL (8.5-10.1); Hematocrit 24.7 % (41.0-53.0); Potassium 3.8 mmol/L (3.5-5.1)
[2021-10-09 11:03] LABS: Mean Corpuscular Volume 74.6 fL (80.0-100.0)
[2021-10-09 11:05] LABS: Bilirubin, Total 0.3 mg/dL (0.2-1.0); Total Protein 6.3 g/dL (6.4-8.2)
[2021-10-09] MEDS: MEROPENEM 1GM IVPB 100 ML IV SCH ×2 (11:17→23:11)
[2021-10-09 12:24] LABS: Urine Bacteria FEW /hpf (None Seen); Urine Blood Negative /uL (Negative); Urine Budding Yeast MANY /hpf (None Seen); Urine Mucus FEW (None Seen); Urine Specific Gravity 1.018 (1.001-1.035); Urine WBC 631 /hpf (0 - 3); Urine WBC Clumps PRESENT /hpf (None Seen)
[2021-10-09 13:00] VITALS: BP 101/53
[2021-10-09 17:00] VITALS: BP 105/63
[2021-10-09 22:00] VITALS: BP 114/65
[2021-10-10] VITALS (9 sets, daily range): BP systolic 92–121; BP diastolic 50–68
[2021-10-10 04:24] LABS: INR 1.08 (0.9-1.15); Partial Thromboplastin Time 35.1 sec (24.6-33.4)
[2021-10-10] MEDS ORDERED: ceFAZolin 1GM/50ML 100 ML IV ONE (04:28)
[2021-10-10] MEDS: InsuLIN REG 1unit/0.01ml Soln (100units/ml) SC SCH ×3 (06:05→16:38)
[2021-10-10] MEDS: ACCU-CHEK COMFORT CURVE STRIP VI SCH ×3 (06:05→16:38)
[2021-10-10] MEDS ORDERED: Juven Orange Powder PACKET 27.5gm PO SCH (10:00)
[2021-10-10] MEDS: MEROPENEM 1GM IVPB 100 ML IV SCH (11:00)
[2021-10-10] MEDS: SODIUM CHLOR 0.9% PF (SALINE LOCK) 10ML VIAL/SYR IV SCH (11:50)
[2021-10-10] MEDS: LINEZOLID 600MG/300ML 300 ML IV SCH (11:50)
[2021-10-10] MEDS: TICAGRELOR 60 MG TAB PO SCH (11:50)
[2021-10-10] MEDS: DAPAGLIFLOZIN 5 MG TAB PO SCH (11:50)
[2021-10-10] MEDS: AMIODARONE HCL 200 MG TAB PO SCH (11:51)
[2021-10-10] MEDS ORDERED: fentaNYL CITRATE 100 MCG/2 ML VL ONE (14:10)
[2021-10-10] MEDS ORDERED: ANGIOMAX 250 MG VIAL IV ONE (14:10)
[2021-10-10] MEDS ORDERED: SODIUM CHL 0.9% 0 ML ONE (14:10)
[2021-10-10] MEDS ORDERED: MIDAZOLAM HCL 2MG/2ML 2ml VIAL (1mg/ml) ONE (14:10)
[2021-10-10] MEDS ORDERED: IOHEXOL 350 MG/ML 100ML IJ ONE (14:11)
[2021-10-10] MEDS ORDERED: LIDOCAINE 2%HCL (LOCAL ANESTH.) INJ 10ml MDV ONE (14:11)
== END 2021-10-10 19:07 | disposition home or self-care (01) | DRG 871 ==
LOC: EDBD 16:27 → ER 16:27 → EDSEX 16:27 → OVERFLOW 22:09 → ICU WEST 10-04 09:59 → TELE-EAST 10-06 16:00
PROVIDERS: ADMIT Internal Medicine Cardiovascular Disease; ATTEND Internal Medicine Cardiovascular Disease
PROC: 4A023N7 Measurement of Cardiac Sampling and Pressure, Left Heart, Percutaneous Approach (ICD-10-PCS; principal; 2021-10-10)
PROC: B2111ZZ Fluoroscopy of Multiple Coronary Arteries using Low Osmolar Contrast (ICD-10-PCS; 2021-10-10)
PROC: B2151ZZ Fluoroscopy of Left Heart using Low Osmolar Contrast (ICD-10-PCS; 2021-10-10)
DX: A41.9 Sepsis, unspecified organism (principal); L89.154 Pressure ulcer of sacral region, stage 4; N39.0 Urinary tract infection, site not specified; E87.1 Hypo-osmolality and hyponatremia; G82.20 Paraplegia, unspecified; I50.22 Chronic systolic (congestive) heart failure; I42.0 Dilated cardiomyopathy; I95.9 Hypotension, unspecified; E87.8 Other disorders of electrolyte and fluid balance, not elsewhere classified; G89.4 Chronic pain syndrome; I11.0 Hypertensive heart disease with heart failure; Z20.822 Contact with and (suspected) exposure to COVID-19; E11.9 Type 2 diabetes mellitus without complications; Z83.3 Family history of diabetes mellitus; Z82.49 Family history of ischemic heart disease and other diseases of the circulatory system; Z95.810 Presence of automatic (implantable) cardiac defibrillator
CPT/HCPCS: 36415; 36569; 71045; 74176; 80053; 81001; 82150; 82962; 83605; 83690; 83735; 84100; 85025; 85610; 85730; 86850; 86900; 86901; 87040; 87076; 87077; 87081; 87086; 87088; 87186; 87205; 93005; 93458; 96361; 96365; 96368; 96375; 99152; 99291; G0378; J0690; J0696; J1815; J2001; J2185; J2250; J2405; J2543; J3480; J7060

== ENCOUNTER 2021-10-17 19:38 | Inpatient (IN) | payer MEDICARE, MEDICAID ==
[~2021-10-17] VITALS: Ht 175.3 cm; Wt 93.7 kg
[~2021-10-17 19:38] MED LIST changes: +ASPI325T4 PO; -ATEN-60 PO; +CARV12.544 PO; +EMPA1TAB3 PO; +FESO8TAB PO; -METF-370 PO; +SACU1TAB PO; +TICA1TAB PO; +TRIATAB3 PO
[2021-10-17] MEDS ORDERED: ACETAMINOPHEN 325 MG TAB PO ONE (20:15)
[2021-10-17] MEDS ORDERED: ONDANSETRON HCL 4 MG/2 ML VIAL IV ONE (20:15)
[2021-10-17] MEDS ORDERED: SODIUM CHLORIDE 0.9% 3,000 ML IV ONE (20:15)
[2021-10-17 20:37] LABS: Eosinophils # (auto) 0 10 ^3/uL (0-0.8)
[2021-10-17 20:42] LABS: Hemoglobin 7.4 g/dL (13.5-17.5)
[2021-10-17 20:46] LABS: Basophils # (auto) 0.1 10 ^3/uL (0-0.2); Hematocrit 23.4 % (41.0-53.0); Monocytes # (auto) 0.7 10 ^3/uL (0-1.3)
[2021-10-17 20:47] LABS: Basophils % (auto) 0.5 % (0.0-2.0); Lymphocytes # (auto) 0.8 10 ^3/uL (0.4-5.4); Lymphocytes % (auto) 5.9 % (10.0-50.0); Mean Corpuscular Hemoglobin 23.4 pg (28.0-32.0); Mean Corpuscular Hgb Conc. 31.6 g/dL (32.0-36.0); Mean Corpuscular Volume 74.1 fL (80.0-100.0); Monocytes % (auto) 4.8 % (0.0-12.0); Neutrophils # (auto) 12.4 10 ^3/uL (1.6-8.6); Neutrophils % (auto) 88.8 % (37.0-80.0); Red Blood Cells 3.16 10^6/uL (4.5-5.90); Red Cell Distribution Width 18.6 % (11.8-14.3)
[2021-10-17 20:52] LABS: INR 1.23 (0.9-1.15); Partial Thromboplastin Time 31.6 sec (24.6-33.4)
[2021-10-17 20:54] LABS: Albumin 2.2 g/dL (3.4-5.0); Calcium 8.2 mg/dL (8.5-10.1); Magnesium 2.4 mg/dL (1.6-2.6); Potassium 5.1 mmol/L (3.5-5.1)
[2021-10-17 20:58] LABS: BUN/Creatinine Ratio 28.6; Total Protein 7.1 g/dL (6.4-8.2)
[2021-10-17] MEDS ORDERED: PIPERACILLIN-TAZOB 3.375GM 100 ML IV ONE (22:00)
[2021-10-17] MEDS ORDERED: VANCOMYCIN 1GM/250ML 250 ML IV ONE (22:00)
[2021-10-17 22:53] LABS: Lactic Acid w/Reflex 2.3 mmol/L (0.4-2.0)
[2021-10-17 22:54] LABS: Urine Bacteria MOD /hpf (None Seen); Urine Blood Negative /uL (Negative); Urine Budding Yeast MANY /hpf (None Seen); Urine Specific Gravity 1.015 (1.001-1.035); Urine WBC 722 /hpf (0 - 3); Urine WBC Clumps PRESENT /hpf (None Seen)
[2021-10-17] MEDS ORDERED: NOREPINEPHRINE 8 MG/250ML KIT 250 ML IV ONE (23:26)
[2021-10-17] MEDS: NOREPINEPHRINE 8 MG/250ML KIT 250 ML IV SCH (23:55)
[2021-10-18] VITALS (47 sets, daily range): BP systolic 81–136; BP diastolic 40–71
[2021-10-18] MEDS ORDERED: MORPHINE SULFATE INJ 2 MG/ml SYRG IV PRN (04:30)
[2021-10-18] MEDS ORDERED: VANCOMYCIN PER PHARMACY 0 MG IV SCH (04:30)
[2021-10-18] MEDS ORDERED: NITROGLYCERIN 0.4 MG SL TAB SL PRN (04:30)
[2021-10-18] MEDS ORDERED: DEXTROSE (50%) 50ML SYRG IV PRN (04:30)
[2021-10-18] MEDS ORDERED: ONDANSETRON HCL 4 MG/2 ML VIAL IV PRN (04:30)
[2021-10-18] MEDS ORDERED: HYDROcodone-ACET 5/325MG TAB PO PRN (04:30)
[2021-10-18] MEDS: SODIUM CHLORIDE 0.9% 1,000 ML IV SCH ×2 (04:33→16:45)
[2021-10-18] MEDS: ACCU-CHEK COMFORT CURVE STRIP VI SCH ×4 (06:54→22:00)
[2021-10-18] MEDS: InsuLIN REG 1unit/0.01ml Soln (100units/ml) SC SCH ×4 (06:55→22:00)
[2021-10-18] MEDS ORDERED: cefTRIAXone 1GM/50ML D5W 50 ML IV SCH (09:00)
[2021-10-18] MEDS: PANTOPRAZOLE 40 MG TAB PO SCH (09:53)
[2021-10-18] MEDS: ENOXAPARIN SOD 40 MG/0.4 ML SYRINGE SC SCH (09:53)
[2021-10-18] MEDS: VANCOMYCIN 750mg/250ml 250 ML IV SCH ×2 (09:55→21:47)
[2021-10-18] MEDS: NOREPINEPHRINE 8 MG/250ML KIT 250 ML IV SCH (19:51)
[2021-10-18] MEDS: FLUDROCORTISONE ACETATE 0.1 MG TAB PO SCH (21:45)
[2021-10-18] MEDS: CEFEPIME 2 GM in SODIUM CHL 0.9% 50 ML IV SCH (21:46)
[2021-10-19] VITALS (95 sets, daily range): BP systolic 74–129; BP diastolic 14–88
[2021-10-19] MEDS: NOREPINEPHRINE 8 MG/250ML KIT 250 ML IV SCH ×3 (02:10→18:16)
[2021-10-19 03:48] LABS: Basophils # (auto) 0.1 10 ^3/uL (0-0.2); Eosinophils # (auto) 0 10 ^3/uL (0-0.8); Lymphocytes % (auto) 9.2 % (10.0-50.0); Monocytes # (auto) 0.4 10 ^3/uL (0-1.3)
[2021-10-19 03:50] LABS: Basophils % (auto) 0.4 % (0.0-2.0); Eosinophils % (auto) 0.2 % (0.0-7.0); Hematocrit 21.6 % (41.0-53.0); Mean Corpuscular Hemoglobin 23.5 pg (28.0-32.0); Mean Corpuscular Hgb Conc. 31.7 g/dL (32.0-36.0); Mean Corpuscular Volume 74.2 fL (80.0-100.0); Monocytes % (auto) 3.5 % (0.0-12.0); Neutrophils # (auto) 9.7 10 ^3/uL (1.6-8.6); Neutrophils % (auto) 86.7 % (37.0-80.0); Red Cell Distribution Width 18.6 % (11.8-14.3); White Blood Cell 11.2 10^3/uL (4.4-10.8)
[2021-10-19] MEDS: SODIUM CHLORIDE 0.9% 1,000 ML IV SCH ×2 (04:02→18:15)
[2021-10-19 04:03] LABS: Hemoglobin 6.8 g/dL (13.5-17.5)
[2021-10-19 04:06] LABS: Albumin 1.6 g/dL (3.4-5.0); BUN/Creatinine Ratio 14.9; Calcium 7.9 mg/dL (8.5-10.1); Potassium 3.5 mmol/L (3.5-5.1)
[2021-10-19 04:09] LABS: Bilirubin, Total 0.5 mg/dL (0.2-1.0); Total Protein 6.3 g/dL (6.4-8.2)
[2021-10-19 04:29] LABS: Ferritin 727.1 ng/mL (10-322)
[2021-10-19 04:30] LABS: Folate (Folic Acid) 9.26 ng/mL (5.38-24)
[2021-10-19] MEDS: CEFEPIME 2 GM in SODIUM CHL 0.9% 50 ML IV SCH ×3 (05:50→22:54)
[2021-10-19] MEDS: InsuLIN REG 1unit/0.01ml Soln (100units/ml) SC SCH ×4 (06:36→21:43)
[2021-10-19] MEDS: ACCU-CHEK COMFORT CURVE STRIP VI SCH ×4 (06:39→21:43)
[2021-10-19] MEDS: PANTOPRAZOLE 40 MG TAB PO SCH (09:45)
[2021-10-19] MEDS: FLUDROCORTISONE ACETATE 0.1 MG TAB PO SCH ×2 (09:45→21:36)
[2021-10-19] MEDS: ENOXAPARIN SOD 40 MG/0.4 ML SYRINGE SC SCH (09:45)
[2021-10-19] MEDS: VANCOMYCIN 750mg/250ml 250 ML IV SCH ×2 (09:46→21:37)
[2021-10-19] MEDS: IVABRADINE 5 MG TAB PO SCH ×2 (11:00→21:36)
[2021-10-20] VITALS (87 sets, daily range): BP systolic 93–142; BP diastolic 29–84
[2021-10-20 00:54] LABS: Magnesium 1.7 mg/dL (1.6-2.6); Potassium 3.1 mmol/L (3.5-5.1)
[2021-10-20] MEDS: ACETAMINOPHEN 325 MG TAB PO PRN ×2 (01:02→22:26)
[2021-10-20] MEDS: POTASSIUM CHL 20MEQ/100ML 100 ML IV SCH ×3 (01:27→03:10)
[2021-10-20] MEDS: SODIUM CHLORIDE 0.9% 1,000 ML IV SCH ×2 (03:34→14:22)
[2021-10-20 04:28] LABS: Basophils # (auto) 0 10 ^3/uL (0-0.2); Basophils % (auto) 0.3 % (0.0-2.0); Eosinophils # (auto) 0.1 10 ^3/uL (0-0.8); Eosinophils % (auto) 0.6 % (0.0-7.0); Hematocrit 25.4 % (41.0-53.0); Hemoglobin 8.1 g/dL (13.5-17.5); Lymphocytes # (auto) 1.4 10 ^3/uL (0.4-5.4); Lymphocytes % (auto) 12.3 % (10.0-50.0); Mean Corpuscular Hemoglobin 23.9 pg (28.0-32.0); Mean Corpuscular Volume 74.6 fL (80.0-100.0); Monocytes # (auto) 0.7 10 ^3/uL (0-1.3); Monocytes % (auto) 5.6 % (0.0-12.0); Neutrophils # (auto) 9.6 10 ^3/uL (1.6-8.6); Neutrophils % (auto) 81.2 % (37.0-80.0); Red Blood Cells 3.41 10^6/uL (4.5-5.90); White Blood Cell 11.8 10^3/uL (4.4-10.8)
[2021-10-20] MEDS: CEFEPIME 2 GM in SODIUM CHL 0.9% 50 ML IV SCH ×3 (06:15→22:17)
[2021-10-20] MEDS: InsuLIN REG 1unit/0.01ml Soln (100units/ml) SC SCH ×4 (06:21→22:00)
[2021-10-20] MEDS: ACCU-CHEK COMFORT CURVE STRIP VI SCH ×4 (06:22→22:17)
[2021-10-20] MEDS: Ensure HIGH Protein Chocolate 8oz Bottle PO SCH ×3 (08:00→18:14)
[2021-10-20 08:21] LABS: BUN/Creatinine Ratio 14.5; Calcium 8.4 mg/dL (8.5-10.1); Magnesium 1.8 mg/dL (1.6-2.6); Potassium 3.5 mmol/L (3.5-5.1)
[2021-10-20] MEDS: VANCOMYCIN 750mg/250ml 250 ML IV SCH (09:57)
[2021-10-20] MEDS: IVABRADINE 5 MG TAB PO SCH ×2 (09:58→22:00)
[2021-10-20] MEDS: FLUDROCORTISONE ACETATE 0.1 MG TAB PO SCH ×2 (09:58→22:16)
[2021-10-20] MEDS: PANTOPRAZOLE 40 MG TAB PO SCH (09:58)
[2021-10-20] MEDS: ENOXAPARIN SOD 40 MG/0.4 ML SYRINGE SC SCH (09:58)
[2021-10-20] MEDS ORDERED: AMIO200T33 PO (16:37)
[2021-10-20] MEDS: ALBUMIN 25% 100 ML IV SCH (18:31)
[2021-10-20] MEDS: NOREPINEPHRINE 8 MG/250ML KIT 250 ML IV SCH ×2 (18:31→20:57)
[2021-10-20] MEDS: VANCOMYCIN 1GM/250ML 250 ML IV SCH (19:57)
[2021-10-21] VITALS (85 sets, daily range): BP systolic 86–149; BP diastolic 25–74
[2021-10-21] MEDS: ALBUMIN 25% 100 ML IV SCH ×2 (02:46→09:59)
[2021-10-21] MEDS: TEMAZEPAM 15 MG CAP PO PRN ×2 (02:46→23:56)
[2021-10-21 03:45] LABS: Basophils # (auto) 0 10 ^3/uL (0-0.2); Eosinophils # (auto) 0.1 10 ^3/uL (0-0.8); Hemoglobin 7.4 g/dL (13.5-17.5); Lymphocytes # (auto) 1.2 10 ^3/uL (0.4-5.4); Neutrophils # (auto) 7.2 10 ^3/uL (1.6-8.6)
[2021-10-21 03:47] LABS: Basophils % (auto) 0.3 % (0.0-2.0); Eosinophils % (auto) 0.7 % (0.0-7.0); Hematocrit 22.2 % (41.0-53.0); Mean Corpuscular Hemoglobin 24.8 pg (28.0-32.0); Mean Corpuscular Hgb Conc. 33.2 g/dL (32.0-36.0); Mean Corpuscular Volume 74.7 fL (80.0-100.0); Monocytes # (auto) 0.7 10 ^3/uL (0-1.3); Monocytes % (auto) 7.2 % (0.0-12.0); Neutrophils % (auto) 78.8 % (37.0-80.0); Red Blood Cells 2.97 10^6/uL (4.5-5.90); Red Cell Distribution Width 17.6 % (11.8-14.3); White Blood Cell 9.2 10^3/uL (4.4-10.8)
[2021-10-21 04:03] LABS: Calcium 8.1 mg/dL (8.5-10.1)
[2021-10-21 04:05] LABS: BUN/Creatinine Ratio 14.5
[2021-10-21 04:18] LABS: Potassium 2.9 mmol/L (3.5-5.1)
[2021-10-21] MEDS: POTASSIUM CHL 20MEQ/100ML 100 ML IV SCH ×5 (05:03→22:14)
[2021-10-21] MEDS: SODIUM CHLORIDE 0.9% 1,000 ML IV SCH ×2 (05:03→13:29)
[2021-10-21] MEDS: InsuLIN REG 1unit/0.01ml Soln (100units/ml) SC SCH ×4 (06:54→22:06)
[2021-10-21] MEDS: ACCU-CHEK COMFORT CURVE STRIP VI SCH ×4 (07:18→21:56)
[2021-10-21] MEDS: Ensure HIGH Protein Chocolate 8oz Bottle PO SCH ×3 (08:00→17:56)
[2021-10-21] MEDS: PANTOPRAZOLE 40 MG TAB PO SCH (09:55)
[2021-10-21] MEDS: ENOXAPARIN SOD 40 MG/0.4 ML SYRINGE SC SCH (09:55)
[2021-10-21] MEDS: FLUDROCORTISONE ACETATE 0.1 MG TAB PO SCH ×2 (09:56→21:56)
[2021-10-21] MEDS: IVABRADINE 5 MG TAB PO SCH ×2 (09:56→21:50)
[2021-10-21] MEDS: CEFEPIME 2 GM in SODIUM CHL 0.9% 50 ML IV SCH (13:29)
[2021-10-21] MEDS: VANCOMYCIN 1GM/250ML 250 ML IV SCH (15:50)
[2021-10-22] VITALS (85 sets, daily range): BP systolic 86–150; BP diastolic 34–86
[2021-10-22] MEDS: CEFEPIME 2 GM in SODIUM CHL 0.9% 50 ML IV SCH ×4 (00:33→22:30)
[2021-10-22] MEDS: POTASSIUM CHL 20MEQ/100ML 100 ML IV SCH ×3 (00:54→12:04)
[2021-10-22] MEDS: VANCOMYCIN 1GM/250ML 250 ML IV SCH ×3 (02:00→21:40)
[2021-10-22] MEDS: SODIUM CHLORIDE 0.9% 1,000 ML IV SCH ×3 (02:38→21:00)
[2021-10-22 05:07] LABS: Basophils # (auto) 0 10 ^3/uL (0-0.2); Basophils % (auto) 0.3 % (0.0-2.0); Eosinophils # (auto) 0.1 10 ^3/uL (0-0.8); Hemoglobin 7.1 g/dL (13.5-17.5); Lymphocytes # (auto) 1.3 10 ^3/uL (0.4-5.4); Mean Corpuscular Hemoglobin 24.5 pg (28.0-32.0); Monocytes # (auto) 0.7 10 ^3/uL (0-1.3); Neutrophils # (auto) 5.4 10 ^3/uL (1.6-8.6); White Blood Cell 7.6 10^3/uL (4.4-10.8)
[2021-10-22 05:10] LABS: Eosinophils % (auto) 1.5 % (0.0-7.0); Hematocrit 21.4 % (41.0-53.0); Lymphocytes % (auto) 17.7 % (10.0-50.0); Mean Corpuscular Volume 74.4 fL (80.0-100.0); Monocytes % (auto) 9.5 % (0.0-12.0); Red Blood Cells 2.88 10^6/uL (4.5-5.90); Red Cell Distribution Width 17.6 % (11.8-14.3)
[2021-10-22 05:19] LABS: BUN/Creatinine Ratio 13.7; Calcium 8.4 mg/dL (8.5-10.1); Potassium 3.7 mmol/L (3.5-5.1)
[2021-10-22] MEDS: InsuLIN REG 1unit/0.01ml Soln (100units/ml) SC SCH ×4 (06:37→21:47)
[2021-10-22] MEDS: ACCU-CHEK COMFORT CURVE STRIP VI SCH ×4 (06:37→21:41)
[2021-10-22] MEDS: NOREPINEPHRINE 8 MG/250ML KIT 250 ML IV SCH ×3 (06:38→23:30)
[2021-10-22] MEDS: IVABRADINE 5 MG TAB PO SCH ×2 (09:47→21:40)
[2021-10-22] MEDS: ENOXAPARIN SOD 40 MG/0.4 ML SYRINGE SC SCH (09:47)
[2021-10-22] MEDS: FLUDROCORTISONE ACETATE 0.1 MG TAB PO SCH ×2 (09:48→21:40)
[2021-10-22] MEDS: PANTOPRAZOLE 40 MG TAB PO SCH (09:48)
[2021-10-22] MEDS: Ensure HIGH Protein Chocolate 8oz Bottle PO SCH ×3 (09:52→18:00)
[2021-10-22] MEDS: DIGOXIN 0.125 MG TAB PO SCH (10:00)
[2021-10-22] MEDS ORDERED: DIGOXIN 0.125 MG TAB PO ONE (10:00)
[2021-10-22] MEDS: MAGNESIUM SULFATE 1GM/100ML 100 ML IV SCH ×2 (11:16→12:04)
[2021-10-23] VITALS (92 sets, daily range): BP systolic 80–127; BP diastolic 24–74
[2021-10-23] MEDS: CEFEPIME 2 GM in SODIUM CHL 0.9% 50 ML IV SCH ×3 (06:22→21:41)
[2021-10-23] MEDS: InsuLIN REG 1unit/0.01ml Soln (100units/ml) SC SCH ×4 (07:00→21:53)
[2021-10-23] MEDS: ACCU-CHEK COMFORT CURVE STRIP VI SCH ×4 (07:09→21:42)
[2021-10-23] MEDS: Ensure HIGH Protein Chocolate 8oz Bottle PO SCH ×3 (08:00→18:00)
[2021-10-23 08:12] LABS: Basophils # (auto) 0 10 ^3/uL (0-0.2); Basophils % (auto) 0.2 % (0.0-2.0); Eosinophils # (auto) 0.1 10 ^3/uL (0-0.8); Lymphocytes # (auto) 0.7 10 ^3/uL (0.4-5.4); Mean Corpuscular Hemoglobin 23.9 pg (28.0-32.0); Monocytes # (auto) 0.6 10 ^3/uL (0-1.3); Neutrophils # (auto) 5.4 10 ^3/uL (1.6-8.6); Red Cell Distribution Width 17.9 % (11.8-14.3)
[2021-10-23 08:15] LABS: Eosinophils % (auto) 0.8 % (0.0-7.0); Hematocrit 20.6 % (41.0-53.0); Lymphocytes % (auto) 10.7 % (10.0-50.0); Mean Corpuscular Hgb Conc. 31.8 g/dL (32.0-36.0); Mean Corpuscular Volume 75.2 fL (80.0-100.0); Monocytes % (auto) 8.5 % (0.0-12.0); Neutrophils % (auto) 79.8 % (37.0-80.0); Red Blood Cells 2.73 10^6/uL (4.5-5.90); White Blood Cell 6.8 10^3/uL (4.4-10.8)
[2021-10-23 08:28] LABS: Albumin 1.8 g/dL (3.4-5.0); Calcium 7.9 mg/dL (8.5-10.1); Potassium 3.1 mmol/L (3.5-5.1)
[2021-10-23 08:29] LABS: Hemoglobin 6.5 g/dL (13.5-17.5)
[2021-10-23 08:31] LABS: INR 1.22 (0.9-1.15); Partial Thromboplastin Time 34.5 sec (24.6-33.4)
[2021-10-23 08:32] LABS: BUN/Creatinine Ratio 11.3; Bilirubin, Total 0.4 mg/dL (0.2-1.0); Total Protein 6.1 g/dL (6.4-8.2)
[2021-10-23] MEDS: POTASSIUM CHL 20MEQ/100ML 100 ML IV SCH ×4 (09:11→13:14)
[2021-10-23] MEDS: PANTOPRAZOLE 40 MG TAB PO SCH (09:12)
[2021-10-23] MEDS: FLUDROCORTISONE ACETATE 0.1 MG TAB PO SCH ×3 (09:45→21:42)
[2021-10-23] MEDS: IVABRADINE 5 MG TAB PO SCH ×2 (09:45→21:42)
[2021-10-23] MEDS: DIGOXIN 0.125 MG TAB PO SCH (09:46)
[2021-10-23] MEDS: NOREPINEPHRINE 8 MG/250ML KIT 250 ML IV SCH (12:50)
[2021-10-23] MEDS: VANCOMYCIN 1GM/250ML 250 ML IV SCH ×2 (13:17→19:29)
[2021-10-23] MEDS ORDERED: LIDOCAINE 1% (LOCAL ANESTH.) PF 5ml SDV ID ONE (13:30)
[2021-10-23] MEDS: SODIUM CHLORIDE 0.9% 1,000 ML IV SCH (13:56)
[2021-10-23] MEDS: ENOXAPARIN SOD 40 MG/0.4 ML SYRINGE SC SCH (15:03)
[2021-10-23] MEDS ORDERED: SODIUM CHLOR 0.9% PF (SALINE LOCK) 10ML VIAL/SYR IV SCH (22:00)
[2021-10-23] MEDS ORDERED: Pro-Stat SF 30ml Vanilla GT SCH (22:00)
[2021-10-24] VITALS (25 sets, daily range): BP systolic 95–123; BP diastolic 24–59
[2021-10-24] MEDS: NOREPINEPHRINE 8 MG/250ML KIT 250 ML IV SCH (02:10)
[2021-10-24 04:31] LABS: Basophils # (auto) 0 10 ^3/uL (0-0.2); Eosinophils # (auto) 0.1 10 ^3/uL (0-0.8); Mean Corpuscular Volume 75.4 fL (80.0-100.0); Monocytes # (auto) 0.5 10 ^3/uL (0-1.3); Neutrophils % (auto) 71.4 % (37.0-80.0); White Blood Cell 5.6 10^3/uL (4.4-10.8)
[2021-10-24 04:33] LABS: Basophils % (auto) 0.4 % (0.0-2.0); Eosinophils % (auto) 1.6 % (0.0-7.0); Hematocrit 19.9 % (41.0-53.0); Lymphocytes % (auto) 18.2 % (10.0-50.0); Mean Corpuscular Hemoglobin 25.5 pg (28.0-32.0); Mean Corpuscular Hgb Conc. 33.8 g/dL (32.0-36.0); Monocytes % (auto) 8.4 % (0.0-12.0); Red Blood Cells 2.64 10^6/uL (4.5-5.90); Red Cell Distribution Width 18.5 % (11.8-14.3)
[2021-10-24 04:50] LABS: Albumin 1.6 g/dL (3.4-5.0); Calcium 7.8 mg/dL (8.5-10.1); Potassium 3.1 mmol/L (3.5-5.1)
[2021-10-24 04:53] LABS: Bilirubin, Total 0.5 mg/dL (0.2-1.0); Total Protein 5.7 g/dL (6.4-8.2)
[2021-10-24 05:24] LABS: Hemoglobin 6.7 g/dL (13.5-17.5)
[2021-10-24] MEDS: VANCOMYCIN 1GM/250ML 250 ML IV SCH ×2 (05:48→05:51)
[2021-10-24] MEDS: SODIUM CHLORIDE 0.9% 1,000 ML IV SCH (05:54)
[2021-10-24] MEDS ORDERED: POTASSIUM CHL 20 Meq TABLET PO ONE ×3 (06:15→08:30)
[2021-10-24] MEDS: ACCU-CHEK COMFORT CURVE STRIP VI SCH (07:00)
[2021-10-24] MEDS: InsuLIN REG 1unit/0.01ml Soln (100units/ml) SC SCH (07:00)
[2021-10-24] MEDS ORDERED: POTASSIUM CHL 20 Meq TABLET PO SCH (10:00)
== END 2021-10-24 09:40 | disposition home or self-care (01) | DRG 871 ==
LOC: ER 19:38 → EDBD 19:38 → TELE 10-18 04:17 → ICU WEST 10-18 11:03
PROVIDERS: ADMIT Nurse Practitioner; ATTEND Internal Medicine Cardiovascular Disease
PROC: 30233N1 Transfusion of Nonautologous Red Blood Cells into Peripheral Vein, Percutaneous Approach (ICD-10-PCS; principal; 2021-10-19)
PROC: 05HB33Z Insertion of Infusion Device into Right Basilic Vein, Percutaneous Approach (ICD-10-PCS; 2021-10-23)
PROC: B54MZZA Ultrasonography of Right Upper Extremity Veins, Guidance (ICD-10-PCS; 2021-10-23)
DX: A41.9 Sepsis, unspecified organism (principal); E43 Unspecified severe protein-calorie malnutrition; L89.323 Pressure ulcer of left buttock, stage 3; L89.154 Pressure ulcer of sacral region, stage 4; R65.21 Severe sepsis with septic shock; G82.20 Paraplegia, unspecified; I47.2 Ventricular tachycardia; N39.0 Urinary tract infection, site not specified; M86.8X5 Other osteomyelitis, thigh; I50.22 Chronic systolic (congestive) heart failure; I11.0 Hypertensive heart disease with heart failure; E11.69 Type 2 diabetes mellitus with other specified complication; E78.5 Hyperlipidemia, unspecified; E87.6 Hypokalemia; L98.8 Other specified disorders of the skin and subcutaneous tissue; G89.4 Chronic pain syndrome; D64.9 Anemia, unspecified; K76.0 Fatty (change of) liver, not elsewhere classified; Z68.28 Body mass index [BMI] 28.0-28.9, adult; Z82.49 Family history of ischemic heart disease and other diseases of the circulatory system; Z83.3 Family history of diabetes mellitus; Z90.49 Acquired absence of other specified parts of digestive tract; Z95.810 Presence of automatic (implantable) cardiac defibrillator; Z79.84 Long term (current) use of oral hypoglycemic drugs
CPT/HCPCS: 36415; 36556; 36569; 70450; 71045; 74176; 80048; 80053; 80202; 81001; 82270; 82565; 82607; 82728; 82746; 82962; 83540; 83550; 83605; 83735; 83880; 84132; 84484; 85025; 85045; 85379; 85610; 85730; 86850; 86900; 86901; 86920; 87040; 87076; 87077; 87081; 87186; 87205; 93005; 96361; 96365; 96366; 96367; 96368; 96372; 96375; 97163; 99291; G0378; J0696; J1815; J2405; J2543; J3480; P9047

== ENCOUNTER 2021-11-18 18:10 | Inpatient (IN) | payer MEDICARE, MEDICAID ==
[~2021-11-18] VITALS: Ht 175.3 cm; Wt 82.9 kg
[~2021-11-18 18:10] MED LIST changes: +AMIO200T33 PO; -ASPI325T4 PO; -ATOR10TA52 PO; -FESO8TAB PO; -LISI-706 PO; -TICA1TAB PO
[2021-11-18] MEDS ORDERED: ONDANSETRON HCL 4 MG/2 ML VIAL IV ONE (20:00)
[2021-11-18 20:44] LABS: Basophils # (auto) 0 10 ^3/uL (0-0.2); Basophils % (auto) 0.3 % (0.0-2.0); Eosinophils # (auto) 0 10 ^3/uL (0-0.8); Hematocrit 21.9 % (41.0-53.0); Monocytes # (auto) 0.7 10 ^3/uL (0-1.3); Monocytes % (auto) 5.2 % (0.0-12.0); Red Blood Cells 2.84 10^6/uL (4.5-5.90)
[2021-11-18 20:45] LABS: Lymphocytes % (auto) 7.1 % (10.0-50.0); Mean Corpuscular Hemoglobin 24.5 pg (28.0-32.0); Mean Corpuscular Hgb Conc. 31.8 g/dL (32.0-36.0); Neutrophils # (auto) 12.4 10 ^3/uL (1.6-8.6); Neutrophils % (auto) 87.4 % (37.0-80.0); Red Cell Distribution Width 21.6 % (11.8-14.3); White Blood Cell 14.2 10^3/uL (4.4-10.8)
[2021-11-18 20:59] LABS: INR 1.26 (0.9-1.15); Partial Thromboplastin Time 32.4 sec (24.6-33.4)
[2021-11-18 21:05] LABS: Albumin 1.8 g/dL (3.4-5.0); BUN/Creatinine Ratio 22.7; Calcium 8.3 mg/dL (8.5-10.1); Potassium 4.9 mmol/L (3.5-5.1)
[2021-11-18 21:08] LABS: Bilirubin, Total 0.8 mg/dL (0.2-1.0); Total Protein 7.5 g/dL (6.4-8.2)
[2021-11-18] MEDS ORDERED: VANCOMYCIN 1GM/250ML 250 ML IV ONE (21:30)
[2021-11-18] MEDS ORDERED: LACTATED RINGER'S 1,000 ML IV ONE (21:30)
[2021-11-18] MEDS ORDERED: CEFEPIME 1GM/ 50ML 50 ML IV ONE (21:30)
[2021-11-18 22:06] LABS: Urine Amorphous Crystal FEW /hpf (None Seen); Urine Bacteria MANY /hpf (None Seen); Urine Blood TRACE /uL (Negative); Urine Mucus FEW (None Seen); Urine Specific Gravity 1.018 (1.001-1.035); Urine WBC 442 /hpf (0 - 3); Urine WBC Clumps PRESENT /hpf (None Seen)
[2021-11-18] MEDS ORDERED: IOHEXOL 300 MG/ML 100ML BOTTLE IJ ONE (22:32)
[2021-11-18] MEDS ORDERED: DOCUSATE SOD 100 MG CAP PO PRN (23:00)
[2021-11-18] MEDS ORDERED: VANCOMYCIN PER PHARMACY 0 MG IV SCH (23:00)
[2021-11-18] MEDS ORDERED: DEXTROSE (50%) 50ML SYRG IV PRN (23:00)
[2021-11-18] MEDS ORDERED: ONDANSETRON HCL 4 MG/2 ML VIAL IV PRN (23:00)
[2021-11-18] MEDS ORDERED: HYDROcodone-ACET 5/325MG TAB PO PRN (23:00)
[2021-11-18 23:05] VITALS: BP 103/48
[2021-11-18] MEDS ORDERED: MORPHINE SULFATE INJ 2 MG/ml SYRG IV PRN (23:15)
[2021-11-18] MEDS ORDERED: NITROGLYCERIN 0.4 MG SL TAB SL PRN (23:15)
[2021-11-18 23:20] VITALS: BP 89/47
[2021-11-18 23:30] VITALS: BP 107/65
[2021-11-19] VITALS (8 sets, daily range): BP systolic 80–121; BP diastolic 44–66
[2021-11-19] MEDS: ALBUMIN 25% 100 ML IV SCH ×3 (00:50→15:11)
[2021-11-19] MEDS: SODIUM CHLORIDE 0.9% 1,000 ML IV SCH ×2 (00:50→15:11)
[2021-11-19] MEDS ORDERED: NOREPINEPHRINE 8 MG/250ML KIT 250 ML IV ONE (02:30)
[2021-11-19] MEDS ORDERED: NOREPINEPHRINE 8 MG/250ML KIT 250 ML IV SCH (02:30)
[2021-11-19 02:56] LABS: Eosinophils # (auto) 0 10 ^3/uL (0-0.8); Eosinophils % (auto) 0.1 % (0.0-7.0); Mean Corpuscular Hemoglobin 25.2 pg (28.0-32.0); Mean Corpuscular Hgb Conc. 32.5 g/dL (32.0-36.0); Monocytes # (auto) 0.6 10 ^3/uL (0-1.3)
[2021-11-19 02:58] LABS: Basophils # (auto) 0 10 ^3/uL (0-0.2); Basophils % (auto) 0.5 % (0.0-2.0); Hematocrit 18.7 % (41.0-53.0); Lymphocytes % (auto) 11.1 % (10.0-50.0); Mean Corpuscular Volume 77.5 fL (80.0-100.0); Monocytes % (auto) 6.9 % (0.0-12.0); Neutrophils # (auto) 7.3 10 ^3/uL (1.6-8.6); Neutrophils % (auto) 81.4 % (37.0-80.0); Red Blood Cells 2.42 10^6/uL (4.5-5.90); Red Cell Distribution Width 19.9 % (11.8-14.3); White Blood Cell 8.9 10^3/uL (4.4-10.8)
[2021-11-19 03:07] LABS: Hemoglobin 6.1 g/dL (13.5-17.5)
[2021-11-19] MEDS: ACCU-CHEK COMFORT CURVE STRIP VI SCH ×4 (07:32→22:00)
[2021-11-19] MEDS: InsuLIN REG 1unit/0.01ml Soln (100units/ml) SC SCH ×4 (07:42→22:00)
[2021-11-19] MEDS: ASCORBIC ACID 500 MG TAB PO SCH (09:31)
[2021-11-19] MEDS: MULTIPLE VITAMIN TAB PO SCH (09:31)
[2021-11-19] MEDS: ZINC SULFATE 220mg CAP or TAB PO SCH (09:31)
[2021-11-19] MEDS: VANCOMYCIN 1GM/250ML 250 ML IV SCH ×2 (09:31→23:54)
[2021-11-19] MEDS: HEPARIN SODIUM (PORCINE) 5000 UNITS/ML 1ML VIAL SC SCH ×2 (09:36→22:00)
[2021-11-19] MEDS ORDERED: CEFEPIME 2 GM in D5W 5% 50 ML IV SCH (10:00)
[2021-11-19] MEDS: CEFEPIME 2 GM in SODIUM CHL 0.9% 50 ML IV SCH (10:39)
[2021-11-19 14:08] LABS: Basophils # (auto) 0 10 ^3/uL (0-0.2); Basophils % (auto) 0.3 % (0.0-2.0); Eosinophils # (auto) 0 10 ^3/uL (0-0.8); Eosinophils % (auto) 0.3 % (0.0-7.0); Hematocrit 29.1 % (41.0-53.0); Hemoglobin 9.2 g/dL (13.5-17.5); Lymphocytes # (auto) 0.8 10 ^3/uL (0.4-5.4); Lymphocytes % (auto) 7.4 % (10.0-50.0); Mean Corpuscular Hemoglobin 26.3 pg (28.0-32.0); Mean Corpuscular Hgb Conc. 31.5 g/dL (32.0-36.0); Mean Corpuscular Volume 83.5 fL (80.0-100.0); Monocytes # (auto) 0.5 10 ^3/uL (0-1.3); Neutrophils # (auto) 9.4 10 ^3/uL (1.6-8.6); Nucleated Red Blood Cells % 0.1 %; Red Blood Cells 3.49 10^6/uL (4.5-5.90); White Blood Cell 10.9 10^3/uL (4.4-10.8)
[2021-11-19 14:23] LABS: Calcium 8.1 mg/dL (8.5-10.1); Potassium 4.1 mmol/L (3.5-5.1)
[2021-11-19 14:28] LABS: BUN/Creatinine Ratio 24.4; Bilirubin, Total 1.1 mg/dL (0.2-1.0); Total Protein 6.6 g/dL (6.4-8.2)
[2021-11-20] MEDS: ASCORBIC ACID 500 MG TAB PO SCH ×3 (02:06→21:42)
[2021-11-20] MEDS ORDERED: CEFEPIME 1GM/ 50ML 100 ML IV ONE (02:43)
[2021-11-20] MEDS: CEFEPIME 2 GM in SODIUM CHL 0.9% 50 ML IV SCH ×3 (03:00→21:41)
[2021-11-20 06:19] LABS: BUN/Creatinine Ratio 17.1; Calcium 8.1 mg/dL (8.5-10.1); Potassium 4.1 mmol/L (3.5-5.1)
[2021-11-20] MEDS: ACETAMINOPHEN 325 MG TAB PO PRN ×2 (06:47→21:42)
[2021-11-20] MEDS: SODIUM CHLORIDE 0.9% 1,000 ML IV SCH (08:20)
[2021-11-20] MEDS: InsuLIN REG 1unit/0.01ml Soln (100units/ml) SC SCH ×4 (08:40→22:06)
[2021-11-20] MEDS: ACCU-CHEK COMFORT CURVE STRIP VI SCH ×4 (08:40→21:58)
[2021-11-20] MEDS: HEPARIN SODIUM (PORCINE) 5000 UNITS/ML 1ML VIAL SC SCH ×3 (10:00→22:00)
[2021-11-20] MEDS: MULTIPLE VITAMIN TAB PO SCH (10:32)
[2021-11-20] MEDS: ZINC SULFATE 220mg CAP or TAB PO SCH (10:32)
[2021-11-20] MEDS: VANCOMYCIN 1GM/250ML 250 ML IV SCH ×2 (10:35→21:41)
[2021-11-20 13:00] VITALS: BP 109/60
[2021-11-20] MEDS ORDERED: CARV6.2551 PO (13:49)
[2021-11-20] MEDS ORDERED: TICA90TA PO (13:54)
[2021-11-20] MEDS ORDERED: METF-370 PO (13:56)
[2021-11-20] MEDS ORDERED: FESO8TAB PO (13:56)
[2021-11-20] MEDS ORDERED: ASPI-543 PO (13:58)
[2021-11-20] MEDS ORDERED: ATOR10TA52 PO (13:58)
[2021-11-20 17:19] VITALS: BP 107/58
[2021-11-20 20:00] VITALS: BP 103/60
[2021-11-20 22:00] VITALS: BP 103/60
[2021-11-20] MEDS: TICAGRELOR 90 MG TAB PO SCH (22:00)
[2021-11-21] MEDS: SODIUM CHLORIDE 0.9% 1,000 ML IV SCH ×2 (01:00→02:00)
[2021-11-21 05:00] VITALS: BP 101/60
[2021-11-21] MEDS: ACCU-CHEK COMFORT CURVE STRIP VI SCH ×4 (06:47→22:29)
[2021-11-21] MEDS: InsuLIN REG 1unit/0.01ml Soln (100units/ml) SC SCH ×4 (06:52→22:00)
[2021-11-21 09:00] VITALS: BP 109/62
[2021-11-21 09:01] LABS: Basophils # (auto) 0 10 ^3/uL (0-0.2); Eosinophils # (auto) 0 10 ^3/uL (0-0.8); Mean Corpuscular Hemoglobin 26.1 pg (28.0-32.0); Monocytes # (auto) 0.4 10 ^3/uL (0-1.3)
[2021-11-21 09:04] LABS: Basophils % (auto) 0.4 % (0.0-2.0); Eosinophils % (auto) 0.6 % (0.0-7.0); Hematocrit 27.5 % (41.0-53.0); Hemoglobin 8.9 g/dL (13.5-17.5); Lymphocytes # (auto) 0.7 10 ^3/uL (0.4-5.4); Lymphocytes % (auto) 11.1 % (10.0-50.0); Mean Corpuscular Hgb Conc. 32.4 g/dL (32.0-36.0); Mean Corpuscular Volume 80.5 fL (80.0-100.0); Neutrophils # (auto) 5.4 10 ^3/uL (1.6-8.6); Neutrophils % (auto) 81.9 % (37.0-80.0); Red Blood Cells 3.42 10^6/uL (4.5-5.90); Red Cell Distribution Width 19.1 % (11.8-14.3); White Blood Cell 6.6 10^3/uL (4.4-10.8)
[2021-11-21 09:12] LABS: Albumin 1.7 g/dL (3.4-5.0); Calcium 8.1 mg/dL (8.5-10.1)
[2021-11-21 09:16] LABS: BUN/Creatinine Ratio 16.7; Bilirubin, Total 0.5 mg/dL (0.2-1.0); Total Protein 6.3 g/dL (6.4-8.2)
[2021-11-21] MEDS: HEPARIN SODIUM (PORCINE) 5000 UNITS/ML 1ML VIAL SC SCH ×2 (10:00→22:00)
[2021-11-21] MEDS: TICAGRELOR 90 MG TAB PO SCH (10:00)
[2021-11-21] MEDS: MULTIPLE VITAMIN TAB PO SCH (11:05)
[2021-11-21] MEDS: ZINC SULFATE 220mg CAP or TAB PO SCH (11:05)
[2021-11-21] MEDS: ASCORBIC ACID 500 MG TAB PO SCH ×2 (11:05→22:29)
[2021-11-21] MEDS: VANCOMYCIN 1GM/250ML 250 ML IV SCH ×2 (11:06→22:29)
[2021-11-21] MEDS: SODIUM FERR GLUC 62.5MG/5ML 125 MG in SODIUM CHL 0.9% 100 ML IV SCH (12:50)
[2021-11-21 13:00] VITALS: BP 107/62
[2021-11-21] MEDS ORDERED: EPOETIN ALFA-EPBX 10,000 UNIT/1ML VIAL SC ONE (13:00)
[2021-11-21] MEDS ORDERED: cefTRIAXone 1GM/50ML D5W 50 ML IV ONE (13:00)
[2021-11-21 17:00] VITALS: BP 98/51
[2021-11-21 22:00] VITALS: BP 102/57
[2021-11-22] VITALS (7 sets, daily range): BP systolic 90–151; BP diastolic 53–77
[2021-11-22] MEDS: ACCU-CHEK COMFORT CURVE STRIP VI SCH ×4 (06:18→22:00)
[2021-11-22] MEDS: InsuLIN REG 1unit/0.01ml Soln (100units/ml) SC SCH ×4 (06:20→23:41)
[2021-11-22] MEDS: cefTRIAXone 1GM/50ML D5W 50 ML IV SCH (09:09)
[2021-11-22] MEDS: ASCORBIC ACID 500 MG TAB PO SCH ×2 (10:50→23:28)
[2021-11-22] MEDS: ZINC SULFATE 220mg CAP or TAB PO SCH (10:50)
[2021-11-22] MEDS: VANCOMYCIN 1GM/250ML 250 ML IV SCH ×2 (10:50→22:00)
[2021-11-22] MEDS: MULTIPLE VITAMIN TAB PO SCH (10:50)
[2021-11-22] MEDS: HEPARIN SODIUM (PORCINE) 5000 UNITS/ML 1ML VIAL SC SCH ×2 (10:52→23:32)
[2021-11-22] MEDS: SODIUM CHLORIDE 0.9% 1,000 ML IV SCH (10:54)
[2021-11-22] MEDS: SODIUM FERR GLUC 62.5MG/5ML 125 MG in SODIUM CHL 0.9% 100 ML IV SCH (14:19)
[2021-11-22] MEDS ORDERED: HEPARIN SODIUM (PORCINE) 5000 UNITS/ML 1ML VIAL ONE (22:41)
[2021-11-23 05:00] VITALS: BP 94/59
[2021-11-23] MEDS: InsuLIN REG 1unit/0.01ml Soln (100units/ml) SC SCH ×3 (07:00→16:59)
[2021-11-23] MEDS: SODIUM CHLORIDE 0.9% 1,000 ML IV SCH (07:10)
[2021-11-23] MEDS: ACCU-CHEK COMFORT CURVE STRIP VI SCH ×3 (07:11→16:59)
[2021-11-23 08:10] VITALS: BP 91/53
[2021-11-23] MEDS: cefTRIAXone 1GM/50ML D5W 50 ML IV SCH (08:38)
[2021-11-23 08:57] VITALS: BP 91/53
[2021-11-23] MEDS: ASCORBIC ACID 500 MG TAB PO SCH (10:53)
[2021-11-23] MEDS: MULTIPLE VITAMIN TAB PO SCH (10:53)
[2021-11-23] MEDS: ZINC SULFATE 220mg CAP or TAB PO SCH (10:53)
[2021-11-23] MEDS: VANCOMYCIN 1GM/250ML 250 ML IV SCH (10:53)
[2021-11-23] MEDS: HEPARIN SODIUM (PORCINE) 5000 UNITS/ML 1ML VIAL SC SCH (11:04)
[2021-11-23] MEDS ORDERED: EPOETIN ALFA-EPBX 10,000 UNIT/1ML VIAL SC ONE (12:15)
[2021-11-23] MEDS: SODIUM FERR GLUC 62.5MG/5ML 125 MG in SODIUM CHL 0.9% 100 ML IV SCH (12:38)
[2021-11-23 12:44] VITALS: BP 96/58
[2021-11-23 16:47] VITALS: BP 97/53
[2021-11-23 19:20] VITALS: BP 97/53
== END 2021-11-23 20:11 | disposition home or self-care (01) | DRG 871 ==
LOC: ER 18:10 → UNDOADMIN 23:14 → OVERFLOW 23:14 → TELE-WESTW 23:14 → TELE-CENTR 11-20 10:13
PROVIDERS: ADMIT Nurse Practitioner; ATTEND Internal Medicine Cardiovascular Disease
PROC: 30233N1 Transfusion of Nonautologous Red Blood Cells into Peripheral Vein, Percutaneous Approach (ICD-10-PCS; principal; 2021-11-18)
PROC: 2Y41X5Z Packing of Nasal Region using Packing Material (ICD-10-PCS; 2021-11-18)
DX: A41.9 Sepsis, unspecified organism (principal); I50.23 Acute on chronic systolic (congestive) heart failure; L89.154 Pressure ulcer of sacral region, stage 4; N39.0 Urinary tract infection, site not specified; G82.20 Paraplegia, unspecified; R64 Cachexia; E87.1 Hypo-osmolality and hyponatremia; E87.6 Hypokalemia; Z20.822 Contact with and (suspected) exposure to COVID-19; D75.839 Thrombocytosis, unspecified; D50.0 Iron deficiency anemia secondary to blood loss (chronic); I25.5 Ischemic cardiomyopathy; E11.65 Type 2 diabetes mellitus with hyperglycemia; E88.09 Other disorders of plasma-protein metabolism, not elsewhere classified; G89.4 Chronic pain syndrome; I11.0 Hypertensive heart disease with heart failure; I25.10 Atherosclerotic heart disease of native coronary artery without angina pectoris; R04.0 Epistaxis; Z79.02 Long term (current) use of antithrombotics/antiplatelets; Z82.49 Family history of ischemic heart disease and other diseases of the circulatory system; Z83.3 Family history of diabetes mellitus; Z95.810 Presence of automatic (implantable) cardiac defibrillator; Z98.61 Coronary angioplasty status; Z68.30 Body mass index [BMI] 30.0-30.9, adult
CPT/HCPCS: 36415; 36430; 71045; 74177; 80048; 80053; 80202; 81001; 82962; 83036; 83605; 83735; 85025; 85379; 85384; 85610; 85730; 86850; 86900; 86901; 86920; 87040; 87086; 87088; 87186; 96361; 96365; 99291; G0378; J0696; J1815; J2405; J7060; P9047

== ENCOUNTER → 2021-12-07 | Outpatient (CLI) | payer MEDICARE, MEDICAID ==
[~2021-12-07] MED LIST changes: +ASPI-543 PO; +ATOR10TA52 PO; +CARV6.2551 PO; +FESO8TAB PO; +METF-370 PO; +SODIUM CHLORIDE 0.9% 250 ML IV ONE; +TICA90TA PO; +VANCOMYCIN 1GM/250ML 250 ML IV ONE; +cefTRIAXone 1GM/50ML D5W 50 ML IV ONE
[2021-12-07 12:55] VITALS: BP 98/55
[2021-12-07 15:30] VITALS: BP 95/48
== END | disposition home or self-care (01) ==
LOC: CHF HDHVI 11:51
PROVIDERS: ATTEND Internal Medicine Cardiovascular Disease
DX: L89.154 Pressure ulcer of sacral region, stage 4 (principal); I95.9 Hypotension, unspecified; I11.0 Hypertensive heart disease with heart failure; I50.22 Chronic systolic (congestive) heart failure; E11.69 Type 2 diabetes mellitus with other specified complication; I25.10 Atherosclerotic heart disease of native coronary artery without angina pectoris; E78.5 Hyperlipidemia, unspecified; G89.4 Chronic pain syndrome; Z98.61 Coronary angioplasty status; Z95.810 Presence of automatic (implantable) cardiac defibrillator; Z79.02 Long term (current) use of antithrombotics/antiplatelets; Z90.49 Acquired absence of other specified parts of digestive tract; Z79.84 Long term (current) use of oral hypoglycemic drugs
CPT/HCPCS: 96361; 96365; 96375; G0463; J0696; J1642; J3370; 96367

== ENCOUNTER → 2021-12-11 | Outpatient (CLI) | payer MEDICARE, MEDICAID ==
[~2021-12-11] VITALS: Ht 30.5 cm; Wt 0.5 kg
[~2021-12-11] MED LIST changes: +ONDANSETRON HCL 4 MG/2 ML VIAL IV ONE; +ONDANSETRON HCL 4 MG/2 ML VIAL ONE; -SODIUM CHLORIDE 0.9% 250 ML IV ONE
[2021-12-11 12:50] VITALS: BP 99/59
[2021-12-11 14:30] VITALS: BP 95/51
== END | disposition home or self-care (01) ==
LOC: CHF HDHVI 12:39
PROVIDERS: ATTEND Internal Medicine Cardiovascular Disease
DX: E11.622 Type 2 diabetes mellitus with other skin ulcer (principal); L89.154 Pressure ulcer of sacral region, stage 4; I25.10 Atherosclerotic heart disease of native coronary artery without angina pectoris; I11.0 Hypertensive heart disease with heart failure; I50.22 Chronic systolic (congestive) heart failure; E78.5 Hyperlipidemia, unspecified; Z90.49 Acquired absence of other specified parts of digestive tract; Z79.02 Long term (current) use of antithrombotics/antiplatelets; Z79.84 Long term (current) use of oral hypoglycemic drugs; Z95.810 Presence of automatic (implantable) cardiac defibrillator
CPT/HCPCS: 96365; 96367; 96375; G0463; J0696; J1642; J2405; J3370; 96374

== ENCOUNTER → 2021-12-15 | Outpatient (CLI) | payer MEDICARE, MEDICAID ==
[~2021-12-15] MED LIST changes: -ONDANSETRON HCL 4 MG/2 ML VIAL IV ONE; -ONDANSETRON HCL 4 MG/2 ML VIAL ONE; -VANCOMYCIN 1GM/250ML 250 ML IV ONE; -cefTRIAXone 1GM/50ML D5W 50 ML IV ONE
[2021-12-15 09:35] LABS: Basophils % (manual) 0 (0.0-2.0); Blast Cells 0; Eosinophils % (manual) 0 (0-7); Promyelocytes % 0
[2021-12-15 11:29] LABS: Eosinophils # (auto) 0 10 ^3/uL (0-0.8); Lymphocytes # (auto) 1.4 10 ^3/uL (0.4-5.4); Mean Corpuscular Hgb Conc. 30.6 g/dL (32.0-36.0); Monocytes # (auto) 0.5 10 ^3/uL (0-1.3)
[2021-12-15 11:35] LABS: Basophils # (auto) 0 10 ^3/uL (0-0.2); Basophils % (auto) 0.3 % (0.0-2.0); Eosinophils % (auto) 0.4 % (0.0-7.0); Hematocrit 25.9 % (41.0-53.0); Hemoglobin 7.9 g/dL (13.5-17.5); Lymphocytes % (auto) 13.8 % (10.0-50.0); Mean Corpuscular Hemoglobin 26.2 pg (28.0-32.0); Mean Corpuscular Volume 85.4 fL (80.0-100.0); Monocytes % (auto) 4.6 % (0.0-12.0); Neutrophils # (auto) 8.1 10 ^3/uL (1.6-8.6); Neutrophils % (auto) 80.9 % (37.0-80.0); Nucleated Red Blood Cells % 0.1 %; Red Blood Cells 3.03 10^6/uL (4.5-5.90); Red Cell Distribution Width 18.2 % (11.8-14.3); White Blood Cell 10.1 10^3/uL (4.4-10.8)
[2021-12-15 11:48] LABS: INR 1.08 (0.9-1.15); Partial Thromboplastin Time 29.2 sec (24.6-33.4)
[2021-12-15 12:31] LABS: Albumin 1.7 g/dL (3.4-5.0); BUN/Creatinine Ratio 15.2; Calcium 8.7 mg/dL (8.5-10.1); Potassium 5.1 mmol/L (3.5-5.1)
[2021-12-15 12:34] LABS: Bilirubin, Total 0.4 mg/dL (0.2-1.0); Total Protein 7.7 g/dL (6.4-8.2)
[2021-12-15 12:53] LABS: Band Neutrophils % (manual) 8; Lymphocytes % (manual) 12 (10.0-50.0)
[2021-12-15 12:54] LABS: Metamyelocytes % 2; Monocytes % (manual) 3 (0-12)
[2021-12-15 12:55] LABS: Myelocytes % 0; Reactive Lymphocytes 2
== END | disposition home or self-care (01) ==
LOC: LAB 09:15
PROVIDERS: ATTEND Internal Medicine Cardiovascular Disease
DX: Z01.812 Encounter for preprocedural laboratory examination (principal); I50.20 Unspecified systolic (congestive) heart failure
CPT/HCPCS: 36415; 80053; 85025; 85610; 85730

== ENCOUNTER 2022-02-05 17:32 | Inpatient (IN) | payer MEDICARE, MEDICAID ==
[~2022-02-05] VITALS: Ht 177.8 cm; Wt 77.0 kg
[2022-02-05 19:29] LABS: Eosinophils # (auto) 0.1 10 ^3/uL (0-0.8); Eosinophils % (auto) 0.6 % (0.0-7.0); Monocytes # (auto) 0.5 10 ^3/uL (0-1.3); Red Blood Cells 2.29 10^6/uL (4.5-5.90)
[2022-02-05 19:41] LABS: Lymphocytes % (auto) 11.9 % (10.0-50.0); Monocytes % (auto) 3.5 % (0.0-12.0); Neutrophils % (auto) 83.5 % (37.0-80.0); White Blood Cell 14.7 10^3/uL (4.4-10.8)
[2022-02-05 19:42] LABS: Basophils # (auto) 0.1 10 ^3/uL (0-0.2); Basophils % (auto) 0.5 % (0.0-2.0); Hematocrit 20.2 % (41.0-53.0); Lymphocytes # (auto) 1.8 10 ^3/uL (0.4-5.4); Mean Corpuscular Volume 88.3 fL (80.0-100.0); Neutrophils # (auto) 12.3 10 ^3/uL (1.6-8.6)
[2022-02-05 19:43] LABS: Mean Corpuscular Hemoglobin 29.6 pg (28.0-32.0); Mean Corpuscular Hgb Conc. 33.5 g/dL (32.0-36.0); Red Cell Distribution Width 17.5 % (11.8-14.3)
[2022-02-05 19:45] LABS: Hemoglobin 6.8 g/dL (13.5-17.5)
[2022-02-05 20:12] LABS: Albumin 2.3 g/dL (3.4-5.0); BUN/Creatinine Ratio 33.3; Calcium 8.3 mg/dL (8.5-10.1); Potassium 5.1 mmol/L (3.5-5.1)
[2022-02-05 20:14] LABS: Bilirubin, Total 0.3 mg/dL (0.2-1.0); Total Protein 6.3 g/dL (6.4-8.2)
[2022-02-05] MEDS ORDERED: VANCOMYCIN 1GM/250ML 250 ML IV ONE (21:15)
[2022-02-05] MEDS ORDERED: ONDANSETRON HCL 4 MG/2 ML VIAL IV ONE (21:15)
[2022-02-05] MEDS ORDERED: HYDROmorphone HCL 2 MG/ML VL/or syr IM ONE (21:15)
[2022-02-05] MEDS ORDERED: PIPERACILLIN-TAZOB 3.375GM 100 ML IV ONE (21:15)
[2022-02-05] MEDS ORDERED: SODIUM CHLORIDE 0.9% 1,000 ML IV ONE (21:15)
[2022-02-05] MEDS ORDERED: IOHEXOL 300 MG/ML 100ML BOTTLE IJ ONE (21:27)
[2022-02-05 22:05] VITALS: BP 98/63
[2022-02-05 22:11] VITALS: BP 98/62
[2022-02-05 22:26] VITALS: BP 92/62
[2022-02-06] VITALS (8 sets, daily range): BP systolic 90–99; BP diastolic 47–64
[2022-02-06] MEDS ORDERED: CLINDAMYCIN 900MG IV 50 ML IV ONE (01:00)
[2022-02-06 01:50] LABS: Urine Amorphous Crystal FEW /hpf (None Seen); Urine Bacteria NONE SEEN /hpf (None Seen); Urine Blood Negative /uL (Negative); Urine Mucus FEW (None Seen); Urine Specific Gravity 1.032 (1.001-1.035); Urine WBC 11 /hpf (0 - 3)
[2022-02-06] MEDS ORDERED: NITROGLYCERIN 0.4 MG SL TAB SL PRN (03:00)
[2022-02-06] MEDS ORDERED: MORPHINE SULFATE INJ 2 MG/ml SYRG IV PRN ×2 (03:00)
[2022-02-06] MEDS ORDERED: DEXTROSE (50%) 50ML SYRG IV PRN (03:00)
[2022-02-06] MEDS ORDERED: ONDANSETRON HCL 4 MG/2 ML VIAL IV PRN (03:00)
[2022-02-06] MEDS: InsuLIN REG 1unit/0.01ml Soln (100units/ml) SC SCH ×3 (06:00→18:00)
[2022-02-06] MEDS: ACCU-CHEK COMFORT CURVE STRIP VI SCH ×3 (06:51→20:29)
[2022-02-06] MEDS: SODIUM CHLORIDE 0.9% 1,000 ML IV SCH ×2 (06:53→14:52)
[2022-02-06] MEDS ORDERED: PANTOPRAZOLE 40 MG/10 ML VIAL INJ IV SCH (10:00)
[2022-02-06] MEDS ORDERED: AMIODARONE HCL 200 MG TAB PO SCH (10:00)
[2022-02-06 16:02] LABS: Basophils # (auto) 0 10 ^3/uL (0-0.2); Basophils % (auto) 0.3 % (0.0-2.0); Eosinophils # (auto) 0.1 10 ^3/uL (0-0.8); Hematocrit 25.4 % (41.0-53.0); Lymphocytes # (auto) 1.8 10 ^3/uL (0.4-5.4); Lymphocytes % (auto) 21.1 % (10.0-50.0); Mean Corpuscular Hemoglobin 27.9 pg (28.0-32.0); Mean Corpuscular Hgb Conc. 31.3 g/dL (32.0-36.0); Mean Corpuscular Volume 89.2 fL (80.0-100.0); Monocytes # (auto) 0.3 10 ^3/uL (0-1.3); Monocytes % (auto) 3.9 % (0.0-12.0); Neutrophils # (auto) 6.2 10 ^3/uL (1.6-8.6); Neutrophils % (auto) 73.7 % (37.0-80.0); Nucleated Red Blood Cells % 0.1 %; Red Blood Cells 2.85 10^6/uL (4.5-5.90); White Blood Cell 8.4 10^3/uL (4.4-10.8)
[2022-02-06 16:04] LABS: Red Cell Distribution Width 20.2 % (11.8-14.3)
[2022-02-06 16:17] LABS: Albumin 2.2 g/dL (3.4-5.0); BUN/Creatinine Ratio 31.3; Calcium 8.1 mg/dL (8.5-10.1)
[2022-02-06 16:20] LABS: Bilirubin, Total 0.5 mg/dL (0.2-1.0); Total Protein 5.6 g/dL (6.4-8.2)
[2022-02-06] MEDS: MIDODRINE HCL 10 MG TAB PO SCH (20:13)
[2022-02-06] MEDS ORDERED: ATORVASTATIN 20 MG TAB PO SCH (22:00)
[2022-02-07 05:30] VITALS: BP 96/56
[2022-02-07] MEDS: InsuLIN REG 1unit/0.01ml Soln (100units/ml) SC SCH ×2 (06:00)
[2022-02-07 06:34] LABS: BUN/Creatinine Ratio 31.3; Bilirubin, Total 0.6 mg/dL (0.2-1.0); Calcium 7.9 mg/dL (8.5-10.1); Potassium 3.6 mmol/L (3.5-5.1); Total Protein 5.3 g/dL (6.4-8.2)
[2022-02-07 06:39] LABS: % Iron Saturation 28.2 % (20-55)
[2022-02-07] MEDS: MIDODRINE HCL 10 MG TAB PO SCH (06:53)
[2022-02-07] MEDS: ACCU-CHEK COMFORT CURVE STRIP VI SCH ×2 (07:02)
[2022-02-07 07:13] LABS: Basophils # (auto) 0 10 ^3/uL (0-0.2); Basophils % (auto) 0.6 % (0.0-2.0); Eosinophils # (auto) 0.1 10 ^3/uL (0-0.8); Eosinophils % (auto) 1.8 % (0.0-7.0); Hemoglobin 7.8 g/dL (13.5-17.5); Lymphocytes # (auto) 1.4 10 ^3/uL (0.4-5.4); Mean Corpuscular Hemoglobin 28.8 pg (28.0-32.0); Monocytes # (auto) 0.3 10 ^3/uL (0-1.3); Nucleated Red Blood Cells % 0.1 %
[2022-02-07 07:14] LABS: Hematocrit 23.1 % (41.0-53.0); Lymphocytes % (auto) 20.9 % (10.0-50.0); Mean Corpuscular Hgb Conc. 33.6 g/dL (32.0-36.0); Mean Corpuscular Volume 85.6 fL (80.0-100.0); Monocytes % (auto) 4.7 % (0.0-12.0); Neutrophils # (auto) 4.9 10 ^3/uL (1.6-8.6); Red Cell Distribution Width 19.5 % (11.8-14.3); White Blood Cell 6.8 10^3/uL (4.4-10.8)
[2022-02-07 09:00] VITALS: BP 101/57
[2022-02-07] MEDS ORDERED: DAKINS QUARTER STR 0.125% (NaHypochlorite) 473 ML TOPICAL SOL TOP SCH (10:00)
[2022-02-07 10:21] LABS: Ferritin 476.6 ng/mL (10-322)
== END 2022-02-07 08:30 | disposition left against medical advice (07) | DRG 314 ==
LOC: EDBD 17:32 → ER 17:32 → TELE 02-06 02:55 → TELE-CENTR 02-06 18:56
PROVIDERS: ADMIT Nurse Practitioner; ATTEND Student in an Organized Health Care Education/Training Program
PROC: 30233N1 Transfusion of Nonautologous Red Blood Cells into Peripheral Vein, Percutaneous Approach (ICD-10-PCS; principal; 2022-02-05)
DX: I95.9 Hypotension, unspecified (principal); L89.324 Pressure ulcer of left buttock, stage 4; G82.20 Paraplegia, unspecified; I50.20 Unspecified systolic (congestive) heart failure; N39.0 Urinary tract infection, site not specified; D64.9 Anemia, unspecified; Z20.822 Contact with and (suspected) exposure to COVID-19; Z53.29 Procedure and treatment not carried out because of patient's decision for other reasons; E11.9 Type 2 diabetes mellitus without complications; E78.5 Hyperlipidemia, unspecified; F41.9 Anxiety disorder, unspecified; I11.0 Hypertensive heart disease with heart failure; M16.11 Unilateral primary osteoarthritis, right hip; Z79.82 Long term (current) use of aspirin; Z83.3 Family history of diabetes mellitus; Z90.6 Acquired absence of other parts of urinary tract; Z93.3 Colostomy status; Z95.5 Presence of coronary angioplasty implant and graft
CPT/HCPCS: 36415; 74177; 80053; 81001; 82607; 82728; 82962; 83540; 83550; 83605; 85025; 86850; 86900; 86901; 86920; 87426; 96361; 96365; 96367; 96375; C9113; G0378; J2543; J3490

== ENCOUNTER → 2022-03-09 | Outpatient (CLI) | payer MEDICARE, MEDICAID | END | disposition home or self-care (01) | LOC: Rad HDHVI 16:00 | PROVIDERS: ATTEND Internal Medicine Cardiovascular Disease | DX: I51.7 Cardiomegaly (principal); R06.02 Shortness of breath; E78.5 Hyperlipidemia, unspecified | CPT/HCPCS: 93306 ==

== ENCOUNTER → 2022-03-27 | Outpatient (CLI) | payer MEDICARE, MEDICAID ==
[~2022-03-27] VITALS: Ht 175.3 cm; Wt 88.5 kg
== END | disposition home or self-care (01) ==
LOC: Rad HDHVI 08:29
PROVIDERS: ATTEND Internal Medicine Cardiovascular Disease
DX: I25.10 Atherosclerotic heart disease of native coronary artery without angina pectoris (principal); I11.0 Hypertensive heart disease with heart failure; I50.43 Acute on chronic combined systolic (congestive) and diastolic (congestive) heart failure; I25.5 Ischemic cardiomyopathy; E11.9 Type 2 diabetes mellitus without complications; E78.5 Hyperlipidemia, unspecified; R06.02 Shortness of breath; Z95.0 Presence of cardiac pacemaker
CPT/HCPCS: 78472; 96374; 96375; A9505

== ENCOUNTER → 2022-04-13 | Outpatient (CLI) | payer MEDICARE, MEDICAID ==
[2022-04-13 11:56] LABS: Basophils # (auto) 0 10 ^3/uL (0-0.2); Eosinophils # (auto) 0.1 10 ^3/uL (0-0.8); Hematocrit 31.7 % (41.0-53.0); Lymphocytes # (auto) 1.2 10 ^3/uL (0.4-5.4); Monocytes # (auto) 0.2 10 ^3/uL (0-1.3); Neutrophils # (auto) 4.4 10 ^3/uL (1.6-8.6); Nucleated Red Blood Cells % 0.1 %; Red Cell Distribution Width 15.5 % (11.8-14.3); White Blood Cell 5.9 10^3/uL (4.4-10.8)
[2022-04-13 11:59] LABS: Basophils % (auto) 0.5 % (0.0-2.0); Eosinophils % (auto) 1.8 % (0.0-7.0); Hemoglobin 10.4 g/dL (13.5-17.5); Mean Corpuscular Hemoglobin 27.1 pg (28.0-32.0); Mean Corpuscular Hgb Conc. 32.8 g/dL (32.0-36.0); Mean Corpuscular Volume 82.7 fL (80.0-100.0); Monocytes % (auto) 4.1 % (0.0-12.0); Neutrophils % (auto) 73.6 % (37.0-80.0); Red Blood Cells 3.83 10^6/uL (4.5-5.90)
[2022-04-13 12:09] LABS: INR 1.07 (0.9-1.15); Partial Thromboplastin Time 33.7 sec (24.6-33.4)
== END | disposition home or self-care (01) ==
LOC: Rad HDHVI 10:11
PROVIDERS: ATTEND Internal Medicine Cardiovascular Disease
DX: I50.43 Acute on chronic combined systolic (congestive) and diastolic (congestive) heart failure (principal)
CPT/HCPCS: 36415; 85025; 85610; 85730

== ENCOUNTER → 2022-04-16 | Outpatient (CLI) | payer MEDICARE, MEDICAID ==
[~2022-04-16] VITALS: Ht 30.5 cm; Wt 0.5 kg
[~2022-04-16] MED LIST changes: +LIDOCAINE 1% (LOCAL ANESTH.) PF 5ml SDV ID ONE; +SODIUM CHLOR 0.9% PF (SALINE LOCK) 10ML VIAL/SYR IV SCH
== END | disposition home or self-care (01) ==
LOC: XYW 11:23
PROVIDERS: ATTEND Internal Medicine Cardiovascular Disease
DX: M86.9 Osteomyelitis, unspecified (principal); I50.9 Heart failure, unspecified; Z82.49 Family history of ischemic heart disease and other diseases of the circulatory system; Z83.3 Family history of diabetes mellitus; Z79.84 Long term (current) use of oral hypoglycemic drugs; Z79.82 Long term (current) use of aspirin
CPT/HCPCS: 36569; C1751; J7050

== ENCOUNTER 2022-05-14 10:05 | Inpatient (IN) | payer MEDICARE, MEDICAID ==
[~2022-05-14] VITALS: Ht 175.3 cm; Wt 78.5 kg
[~2022-05-14 10:05] MED LIST changes: -LIDOCAINE 1% (LOCAL ANESTH.) PF 5ml SDV ID ONE; -SODIUM CHLOR 0.9% PF (SALINE LOCK) 10ML VIAL/SYR IV SCH
[2022-05-14] MEDS ORDERED: SODIUM CHLORIDE 0.9% 1,000 ML IV ONE ×2 (10:15)
[2022-05-14] MEDS ORDERED: CLINDAMYCIN 600MG IV 50 ML IV ONE (10:15)
[2022-05-14] MEDS ORDERED: cefTRIAXone 1GM/50ML D5W 50 ML IV ONE (10:15)
[2022-05-14 10:47] LABS: Eosinophils # (auto) 0.2 10 ^3/uL (0-0.8); Hemoglobin 10.4 g/dL (13.5-17.5); Mean Corpuscular Volume 81.3 fL (80.0-100.0); Neutrophils # (auto) 5.6 10 ^3/uL (1.6-8.6); Red Cell Distribution Width 18.5 % (11.8-14.3); White Blood Cell 7.4 10^3/uL (4.4-10.8)
[2022-05-14 10:49] LABS: Basophils # (auto) 0.1 10 ^3/uL (0-0.2); Basophils % (auto) 0.7 % (0.0-2.0); Eosinophils % (auto) 2.5 % (0.0-7.0); Hematocrit 32.2 % (41.0-53.0); Lymphocytes # (auto) 1.1 10 ^3/uL (0.4-5.4); Mean Corpuscular Hemoglobin 26.2 pg (28.0-32.0); Mean Corpuscular Hgb Conc. 32.2 g/dL (32.0-36.0); Monocytes # (auto) 0.4 10 ^3/uL (0-1.3); Monocytes % (auto) 5.9 % (0.0-12.0); Neutrophils % (auto) 75.9 % (37.0-80.0); Red Blood Cells 3.96 10^6/uL (4.5-5.90)
[2022-05-14 11:10] LABS: INR 1.11 (0.9-1.15); Partial Thromboplastin Time 38.2 sec (24.6-33.4)
[2022-05-14 11:18] LABS: Albumin 2.9 g/dL (3.4-5.0); Calcium 8.6 mg/dL (8.5-10.1)
[2022-05-14 11:28] LABS: BUN/Creatinine Ratio 21.8; Bilirubin, Total 0.5 mg/dL (0.2-1.0); Total Protein 6.8 g/dL (6.4-8.2)
[2022-05-14 16:38] LABS: Urine Bacteria FEW /hpf (None Seen); Urine Blood Negative /uL (Negative); Urine Budding Yeast MODERATE /hpf (None Seen); Urine Mucus FEW (None Seen); Urine Specific Gravity 1.015 (1.001-1.035); Urine WBC 7 /hpf (0 - 3)
[2022-05-14] MEDS ORDERED: DEXTROSE (50%) 50ML SYRG IV PRN (17:45)
[2022-05-14] MEDS ORDERED: NITROGLYCERIN 0.4 MG SL TAB SL PRN (17:45)
[2022-05-14] MEDS ORDERED: MORPHINE SULFATE INJ 2 MG/ml SYRG IV PRN (17:45)
[2022-05-14] MEDS ORDERED: HYDROcodone-ACET 10/325MG TAB PO PRN (17:45)
[2022-05-14] MEDS: metFORMIN HYDROCHLORIDE 500 MG TAB PO SCH (19:30)
[2022-05-14] MEDS: InsuLIN REG 1unit/0.01ml Soln (100units/ml) SC SCH (22:00)
[2022-05-14] MEDS ORDERED: CARVEDILOL 12.5 MG TAB PO SCH (22:00)
[2022-05-14] MEDS: SACUBITRIL-VALSARTAN 24mg/26mg TAB PO SCH (22:00)
[2022-05-14] MEDS ORDERED: MEROPENEM 500 MG IV SCH (22:00)
[2022-05-14] MEDS: CARVEDILOL 3.125 MG TAB PO SCH (22:00)
[2022-05-14] MEDS: TICAGRELOR 90 MG TAB PO SCH (22:00)
[2022-05-14] MEDS: ACCU-CHEK COMFORT CURVE STRIP VI SCH (22:08)
[2022-05-14] MEDS: ATORVASTATIN 20 MG TAB PO SCH (22:45)
[2022-05-15] MEDS: MEROPENEM 500MG IVPB 50 ML IV SCH ×3 (06:14→23:04)
[2022-05-15] MEDS: InsuLIN REG 1unit/0.01ml Soln (100units/ml) SC SCH ×4 (06:37→22:00)
[2022-05-15] MEDS: EMPAGLIFLOZIN 10 MG TAB PO SCH (06:37)
[2022-05-15] MEDS: ACCU-CHEK COMFORT CURVE STRIP VI SCH ×4 (06:37→23:04)
[2022-05-15] MEDS: metFORMIN HYDROCHLORIDE 500 MG TAB PO SCH ×2 (06:45→18:00)
[2022-05-15] MEDS: SACUBITRIL-VALSARTAN 24mg/26mg TAB PO SCH ×2 (10:00→22:00)
[2022-05-15] MEDS: TICAGRELOR 90 MG TAB PO SCH ×2 (10:00→22:00)
[2022-05-15] MEDS: CARVEDILOL 3.125 MG TAB PO SCH ×2 (10:00→23:11)
[2022-05-15] MEDS: FESOTERODINE FUMARATE PO SCH (10:00)
[2022-05-15] MEDS: TRIAMTERENE/HCTZ 37.5/25 MG CAP/TAB PO SCH (10:00)
[2022-05-15] MEDS: ASPirin-EC 81 mg tab PO SCH (11:06)
[2022-05-15] MEDS: AMIODARONE HCL 200 MG TAB PO SCH (11:07)
[2022-05-15] MEDS: ATORVASTATIN 20 MG TAB PO SCH (23:04)
[2022-05-15] MEDS ORDERED: PANT1INJ3 PO (23:56)
[2022-05-15] MEDS ORDERED: VANC500I IV (23:56)
[2022-05-15] MEDS ORDERED: SPIR25TA8 PO (23:56)
[2022-05-16] VITALS (7 sets, daily range): BP systolic 79–107; BP diastolic 37–69
[2022-05-16] MEDS: EMPAGLIFLOZIN 10 MG TAB PO SCH (05:27)
[2022-05-16] MEDS: metFORMIN HYDROCHLORIDE 500 MG TAB PO SCH ×2 (06:02→17:01)
[2022-05-16] MEDS: InsuLIN REG 1unit/0.01ml Soln (100units/ml) SC SCH ×4 (06:03→21:31)
[2022-05-16] MEDS: ACCU-CHEK COMFORT CURVE STRIP VI SCH ×4 (06:03→21:30)
[2022-05-16] MEDS: MEROPENEM 500MG IVPB 50 ML IV SCH ×3 (06:38→21:15)
[2022-05-16] MEDS: SACUBITRIL-VALSARTAN 24mg/26mg TAB PO SCH ×2 (10:00→22:00)
[2022-05-16] MEDS: FESOTERODINE FUMARATE PO SCH (10:00)
[2022-05-16] MEDS: TICAGRELOR 90 MG TAB PO SCH ×2 (10:00→22:00)
[2022-05-16] MEDS: ASPirin-EC 81 mg tab PO SCH (10:27)
[2022-05-16] MEDS: AMIODARONE HCL 200 MG TAB PO SCH (10:27)
[2022-05-16] MEDS: TRIAMTERENE/HCTZ 37.5/25 MG CAP/TAB PO SCH (10:28)
[2022-05-16] MEDS: CARVEDILOL 3.125 MG TAB PO SCH ×2 (10:28→21:18)
[2022-05-16] MEDS: ATORVASTATIN 20 MG TAB PO SCH (21:16)
[2022-05-17 05:00] VITALS: BP 122/58
[2022-05-17] MEDS: MEROPENEM 500MG IVPB 50 ML IV SCH ×3 (05:14→21:29)
[2022-05-17] MEDS: ACCU-CHEK COMFORT CURVE STRIP VI SCH ×4 (06:48→21:31)
[2022-05-17] MEDS: InsuLIN REG 1unit/0.01ml Soln (100units/ml) SC SCH ×4 (06:48→21:31)
[2022-05-17] MEDS: EMPAGLIFLOZIN 10 MG TAB PO SCH (06:50)
[2022-05-17] MEDS: metFORMIN HYDROCHLORIDE 500 MG TAB PO SCH ×2 (06:50→18:00)
[2022-05-17 09:00] VITALS: BP 102/42
[2022-05-17] MEDS: ASPirin-EC 81 mg tab PO SCH (09:19)
[2022-05-17] MEDS: TRIAMTERENE/HCTZ 37.5/25 MG CAP/TAB PO SCH (09:19)
[2022-05-17] MEDS: TICAGRELOR 90 MG TAB PO SCH ×2 (09:20→21:34)
[2022-05-17] MEDS: CARVEDILOL 3.125 MG TAB PO SCH ×2 (09:20→21:35)
[2022-05-17] MEDS: AMIODARONE HCL 200 MG TAB PO SCH (09:20)
[2022-05-17] MEDS: FESOTERODINE FUMARATE PO SCH (09:21)
[2022-05-17] MEDS: SACUBITRIL-VALSARTAN 24mg/26mg TAB PO SCH ×2 (09:21→21:34)
[2022-05-17 13:00] VITALS: BP 103/54
[2022-05-17 17:00] VITALS: BP 128/82
[2022-05-17 20:00] VITALS: BP 110/55
[2022-05-17] MEDS: ATORVASTATIN 20 MG TAB PO SCH (21:30)
[2022-05-17 22:00] VITALS: BP 110/55
[2022-05-18 05:00] VITALS: BP 101/62
[2022-05-18] MEDS: MEROPENEM 500MG IVPB 50 ML IV SCH ×3 (05:41→21:27)
[2022-05-18] MEDS: ACCU-CHEK COMFORT CURVE STRIP VI SCH ×4 (06:01→21:23)
[2022-05-18] MEDS: InsuLIN REG 1unit/0.01ml Soln (100units/ml) SC SCH ×4 (06:12→21:25)
[2022-05-18] MEDS: metFORMIN HYDROCHLORIDE 500 MG TAB PO SCH ×2 (06:24→17:26)
[2022-05-18] MEDS: EMPAGLIFLOZIN 10 MG TAB PO SCH (06:24)
[2022-05-18 09:00] VITALS: BP 94/56
[2022-05-18] MEDS: SACUBITRIL-VALSARTAN 24mg/26mg TAB PO SCH (10:00)
[2022-05-18] MEDS: FESOTERODINE FUMARATE PO SCH (10:00)
[2022-05-18] MEDS: TICAGRELOR 90 MG TAB PO SCH (10:00)
[2022-05-18] MEDS: ASPirin-EC 81 mg tab PO SCH (12:24)
[2022-05-18] MEDS: TRIAMTERENE/HCTZ 37.5/25 MG CAP/TAB PO SCH (12:25)
[2022-05-18] MEDS: CARVEDILOL 3.125 MG TAB PO SCH ×2 (12:26→21:25)
[2022-05-18] MEDS: AMIODARONE HCL 200 MG TAB PO SCH (12:26)
[2022-05-18 13:00] VITALS: BP 92/58
[2022-05-18 16:47] VITALS: BP 99/52
[2022-05-18] MEDS ORDERED: PANT40TA2 PO (17:08)
[2022-05-18] MEDS: Juven Fruit Punch Powder PACKET 28.8gm PO SCH (18:30)
[2022-05-18 20:00] VITALS: BP 100/62
[2022-05-18] MEDS: ATORVASTATIN 20 MG TAB PO SCH (21:22)
[2022-05-18 22:00] VITALS: BP 100/62
[2022-05-19 05:00] VITALS: BP 98/47
[2022-05-19] MEDS: MEROPENEM 500MG IVPB 50 ML IV SCH ×3 (05:38→21:40)
[2022-05-19] MEDS: ACCU-CHEK COMFORT CURVE STRIP VI SCH ×4 (06:26→21:12)
[2022-05-19] MEDS: InsuLIN REG 1unit/0.01ml Soln (100units/ml) SC SCH ×4 (06:26→21:11)
[2022-05-19 08:00] VITALS: BP 104/60
[2022-05-19] MEDS: ASPirin-EC 81 mg tab PO SCH (10:47)
[2022-05-19] MEDS: TRIAMTERENE/HCTZ 37.5/25 MG CAP/TAB PO SCH (10:47)
[2022-05-19] MEDS: CARVEDILOL 3.125 MG TAB PO SCH ×2 (10:49→21:42)
[2022-05-19] MEDS: AMIODARONE HCL 200 MG TAB PO SCH (10:49)
[2022-05-19] MEDS: Juven Fruit Punch Powder PACKET 28.8gm PO SCH ×2 (10:50→18:00)
[2022-05-19 12:00] VITALS: BP 106/67
[2022-05-19 16:00] VITALS: BP 103/57
[2022-05-19 20:00] VITALS: BP 90/58
[2022-05-19] MEDS: ATORVASTATIN 20 MG TAB PO SCH (21:29)
[2022-05-19 22:00] VITALS: BP 90/58
[2022-05-20 05:00] VITALS: BP 98/50
[2022-05-20] MEDS: MEROPENEM 500MG IVPB 50 ML IV SCH ×3 (05:14→21:36)
[2022-05-20] MEDS: InsuLIN REG 1unit/0.01ml Soln (100units/ml) SC SCH ×4 (05:14→21:37)
[2022-05-20] MEDS: ACCU-CHEK COMFORT CURVE STRIP VI SCH ×4 (05:15→21:37)
[2022-05-20 08:30] VITALS: BP 91/44
[2022-05-20] MEDS: Juven Fruit Punch Powder PACKET 28.8gm PO SCH ×2 (08:46→17:39)
[2022-05-20] MEDS: TRIAMTERENE/HCTZ 37.5/25 MG CAP/TAB PO SCH (10:00)
[2022-05-20] MEDS: CARVEDILOL 3.125 MG TAB PO SCH ×2 (10:00→21:37)
[2022-05-20] MEDS: AMIODARONE HCL 200 MG TAB PO SCH (10:01)
[2022-05-20] MEDS: ASPirin-EC 81 mg tab PO SCH (10:02)
[2022-05-20 13:00] VITALS: BP 119/75
[2022-05-20 17:17] VITALS: BP 93/53
[2022-05-20] MEDS: ATORVASTATIN 20 MG TAB PO SCH (21:31)
[2022-05-20 22:00] VITALS: BP 97/57
[2022-05-21 05:00] VITALS: BP 96/62
[2022-05-21] MEDS: MEROPENEM 500MG IVPB 50 ML IV SCH ×3 (05:38→21:46)
[2022-05-21] MEDS: InsuLIN REG 1unit/0.01ml Soln (100units/ml) SC SCH ×4 (06:32→21:47)
[2022-05-21] MEDS: ACCU-CHEK COMFORT CURVE STRIP VI SCH ×4 (06:32→21:47)
[2022-05-21] MEDS: Juven Fruit Punch Powder PACKET 28.8gm PO SCH ×2 (07:57→17:59)
[2022-05-21] MEDS: ASPirin-EC 81 mg tab PO SCH (08:20)
[2022-05-21] MEDS: AMIODARONE HCL 200 MG TAB PO SCH (08:20)
[2022-05-21] MEDS: CARVEDILOL 3.125 MG TAB PO SCH ×2 (08:22→21:46)
[2022-05-21] MEDS: TRIAMTERENE/HCTZ 37.5/25 MG CAP/TAB PO SCH (08:23)
[2022-05-21 09:00] VITALS: BP 95/47
[2022-05-21 13:00] VITALS: BP 98/38
[2022-05-21 17:04] VITALS: BP 97/54
[2022-05-21] MEDS: ATORVASTATIN 20 MG TAB PO SCH (21:47)
[2022-05-21 22:00] VITALS: BP 108/58
[2022-05-22 05:00] VITALS: BP 144/66
[2022-05-22] MEDS: ACCU-CHEK COMFORT CURVE STRIP VI SCH ×4 (06:46→21:30)
[2022-05-22] MEDS: MEROPENEM 500MG IVPB 50 ML IV SCH ×3 (06:46→21:30)
[2022-05-22] MEDS: InsuLIN REG 1unit/0.01ml Soln (100units/ml) SC SCH ×4 (06:46→21:30)
[2022-05-22] MEDS: AMIODARONE HCL 200 MG TAB PO SCH (09:36)
[2022-05-22] MEDS: ASPirin-EC 81 mg tab PO SCH (09:36)
[2022-05-22] MEDS: CARVEDILOL 3.125 MG TAB PO SCH ×2 (09:37→21:31)
[2022-05-22] MEDS: TRIAMTERENE/HCTZ 37.5/25 MG CAP/TAB PO SCH (09:37)
[2022-05-22] MEDS: Juven Fruit Punch Powder PACKET 28.8gm PO SCH ×2 (09:49→18:09)
[2022-05-22 11:49] VITALS: BP 122/69
[2022-05-22 13:13] VITALS: BP 96/55
[2022-05-22 16:32] VITALS: BP 97/56
[2022-05-22] MEDS: ATORVASTATIN 20 MG TAB PO SCH (21:30)
[2022-05-22 22:31] VITALS: BP 112/54
[2022-05-23 04:30] VITALS: BP 107/62
[2022-05-23] MEDS: InsuLIN REG 1unit/0.01ml Soln (100units/ml) SC SCH ×2 (06:22→11:30)
[2022-05-23] MEDS: ACCU-CHEK COMFORT CURVE STRIP VI SCH ×2 (06:22→11:30)
[2022-05-23] MEDS: MEROPENEM 500MG IVPB 50 ML IV SCH (06:22)
[2022-05-23] MEDS: ASPirin-EC 81 mg tab PO SCH (08:41)
[2022-05-23] MEDS: AMIODARONE HCL 200 MG TAB PO SCH (08:41)
[2022-05-23 08:42] VITALS: BP 92/45
[2022-05-23] MEDS: CARVEDILOL 3.125 MG TAB PO SCH (08:42)
[2022-05-23] MEDS: TRIAMTERENE/HCTZ 37.5/25 MG CAP/TAB PO SCH (08:42)
[2022-05-23] MEDS: Juven Fruit Punch Powder PACKET 28.8gm PO SCH (08:43)
== END 2022-05-23 13:08 | disposition home or self-care (01) | DRG 871 ==
LOC: EDSEX 10:05 → EDBD 10:05 → ER 10:05 → TELE 17:42 → TELE-CENTR 05-15 22:15
PROVIDERS: ADMIT Internal Medicine Cardiovascular Disease; ATTEND Internal Medicine Cardiovascular Disease
DX: A41.9 Sepsis, unspecified organism (principal); L89.94 Pressure ulcer of unspecified site, stage 4; G82.20 Paraplegia, unspecified; N39.0 Urinary tract infection, site not specified; L89.149 Pressure ulcer of left lower back, unspecified stage; E11.9 Type 2 diabetes mellitus without complications; E78.5 Hyperlipidemia, unspecified; I10 Essential (primary) hypertension; D64.9 Anemia, unspecified; Z20.822 Contact with and (suspected) exposure to COVID-19; L89.329 Pressure ulcer of left buttock, unspecified stage; Z79.899 Other long term (current) drug therapy; Z83.3 Family history of diabetes mellitus
CPT/HCPCS: 36415; 71045; 72192; 80053; 81001; 82962; 83605; 84484; 85025; 85610; 85730; 87040; 87077; 87186; 87205; 87426; 96365; 96366; G0378; J0696; J1815; J2185; J3490

== ENCOUNTER → 2022-07-09 | Outpatient (CLI) | payer MEDICARE, MEDICAID ==
[~2022-07-09] MED LIST changes: -CARV12.544 PO; -EMPA1TAB3 PO; -FESO8TAB PO; -METF-370 PO; +PANT40TA2 PO; -SACU1TAB PO; +SPIR25TA8 PO; -TICA90TA PO; -TRIATAB3 PO
== END | disposition home or self-care (01) ==
LOC: Rad HDHVI 13:02
PROVIDERS: ATTEND Internal Medicine Cardiovascular Disease
DX: I34.0 Nonrheumatic mitral (valve) insufficiency (principal); I11.9 Hypertensive heart disease without heart failure; R06.02 Shortness of breath
CPT/HCPCS: 93306

== ENCOUNTER → 2022-07-24 | Outpatient (CLI) | payer MEDICARE, MEDICAID ==
[~2022-07-24] MED LIST changes: +ADENOSINE 72 MG in GIVE UN-DILUTED 0 ML IV ONE; +ADENOSINE 90 MG/30 ML INJ IV ONE
== END | disposition home or self-care (01) ==
LOC: Rad HDHVI 09:00
PROVIDERS: ATTEND Internal Medicine Cardiovascular Disease
DX: I11.0 Hypertensive heart disease with heart failure (principal); I50.43 Acute on chronic combined systolic (congestive) and diastolic (congestive) heart failure; I25.10 Atherosclerotic heart disease of native coronary artery without angina pectoris; R06.02 Shortness of breath; I25.2 Old myocardial infarction; I10 Essential (primary) hypertension; E11.9 Type 2 diabetes mellitus without complications; E78.5 Hyperlipidemia, unspecified; F17.210 Nicotine dependence, cigarettes, uncomplicated; Z95.1 Presence of aortocoronary bypass graft; Z95.0 Presence of cardiac pacemaker
CPT/HCPCS: 78452; 93005; 96374; 96375; A9500; J0153; J1642

== ENCOUNTER → 2022-09-03 | Outpatient (CLI) | payer MEDICARE, MEDICAID ==
[~2022-09-03] MED LIST changes: -ADENOSINE 72 MG in GIVE UN-DILUTED 0 ML IV ONE; -ADENOSINE 90 MG/30 ML INJ IV ONE
[2022-09-03 16:00] VITALS: BP 110/64
[2022-09-03 16:16] VITALS: BP 122/70
== END | disposition home or self-care (01) ==
LOC: CHF HDHVI 16:11
PROVIDERS: ATTEND Internal Medicine Cardiovascular Disease
DX: E11.9 Type 2 diabetes mellitus without complications (principal); Z79.84 Long term (current) use of oral hypoglycemic drugs
CPT/HCPCS: G0463

== ENCOUNTER → 2023-02-11 | Outpatient (CLI) | payer MEDICARE, MEDICAID | END | disposition home or self-care (01) | LOC: Rad HDHVI 09:50 | PROVIDERS: ATTEND Internal Medicine Cardiovascular Disease | DX: I34.0 Nonrheumatic mitral (valve) insufficiency (principal); I11.9 Hypertensive heart disease without heart failure; E78.5 Hyperlipidemia, unspecified | CPT/HCPCS: 93306 ==

== ENCOUNTER → 2023-02-25 | Outpatient (CLI) | payer MEDICARE, MEDICAID ==
[2023-02-25 09:07] LABS: Basophils # (auto) 0 10 ^3/uL (0-0.2); Basophils % (auto) 0.5 % (0.0-2.0); Eosinophils # (auto) 0.2 10 ^3/uL (0-0.8); Eosinophils % (auto) 1.8 % (0.0-7.0); Hematocrit 36.6 % (41.0-53.0); Hemoglobin 12.3 g/dL (13.5-17.5); Lymphocytes # (auto) 1.8 10 ^3/uL (0.4-5.4); Lymphocytes % (auto) 18.7 % (10.0-50.0); Mean Corpuscular Hemoglobin 27.6 pg (28.0-32.0); Mean Corpuscular Hgb Conc. 33.7 g/dL (32.0-36.0); Monocytes # (auto) 0.4 10 ^3/uL (0-1.3); Monocytes % (auto) 4.5 % (0.0-12.0); Neutrophils # (auto) 7.2 10 ^3/uL (1.6-8.6); Neutrophils % (auto) 74.5 % (37.0-80.0); Nucleated Red Blood Cells % 0.1 %; Red Blood Cells 4.46 10^6/uL (4.5-5.90); Red Cell Distribution Width 18.5 % (11.8-14.3); White Blood Cell 9.6 10^3/uL (4.4-10.8)
[2023-02-25 09:41] LABS: Alanine Aminotransferase 49 U/L (7-40); Albumin 4.4 g/dL (3.2-4.8); Alkaline Phosphatase 204 U/L (46-116); Anion Gap 8 (5-15); Aspartate Aminotransferase 31 U/L (13-40); BUN/Creatinine Ratio 18.4 (10.0-20.0); Bilirubin, Direct 0.2 mg/dL (<0.3); Bilirubin, Total 0.6 mg/dL (0.2-1.0); Blood Urea Nitrogen 18 mg/dL (9-23); Calcium 9.5 mg/dL (8.5-10.1); Carbon Dioxide 24 mmol/L (20-30); Chloride 104 mmol/L (98-107); Cholesterol 124 mg/dL (< 200); Glucose 153 mg/dL (74-106); HDL Cholesterol 39 mg/dL (40-59); LDL Cholesterol 69 mg/dL (< 100); Potassium 4.4 mmol/L (3.5-5.1); Sodium 136 mmol/L (136-145); Total Protein 7.8 g/dL (5.7-8.2); Triglycerides 156 mg/dL (< 150)
== END | disposition home or self-care (01) ==
LOC: LAB 08:44
PROVIDERS: ATTEND Internal Medicine Cardiovascular Disease
DX: C61 Malignant neoplasm of prostate (principal); D51.3 Other dietary vitamin B12 deficiency anemia; D64.9 Anemia, unspecified; E11.9 Type 2 diabetes mellitus without complications; E55.9 Vitamin D deficiency, unspecified; I10 Essential (primary) hypertension; R00.2 Palpitations; R53.1 Weakness; R30.0 Dysuria
CPT/HCPCS: 36415; 80048; 80061; 80076; 82306; 83036; 84153; 84403; 84443; 84550; 85025

== ENCOUNTER → 2023-06-03 | Outpatient (CLI) | payer MEDICARE, MEDICAID | END | disposition home or self-care (01) | LOC: Rad HDHVI 16:02 | PROVIDERS: ATTEND Internal Medicine Cardiovascular Disease | DX: M16.12 Unilateral primary osteoarthritis, left hip (principal); M87.88 Other osteonecrosis, other site; M21.952 Unspecified acquired deformity of left thigh | CPT/HCPCS: 72192 ==

== ENCOUNTER 2023-11-13 18:08 | Inpatient (IN) | payer MEDICARE, MEDICAID ==
[~2023-11-13] VITALS: Ht 172.7 cm; Wt 114.1 kg
[2023-11-13 19:09] LABS: Urine Bacteria FEW /hpf (None Seen); Urine Blood Negative /uL (Negative); Urine Clarity Turbid (Clear); Urine Color Light-Yellow (Yellow); Urine Mucus FEW (None Seen); Urine Protein, UAD 1+ (Negative); Urine Specific Gravity 1.018 (1.001-1.035); Urine Urobilinogen Normal (Negative); Urine WBC 16 /hpf (0 - 3); Urine pH 5.5 (5.0-9.0)
[2023-11-13 19:40] LABS: Basophils # (auto) 0 10 ^3/uL (0-0.2); Eosinophils # (auto) 0 10 ^3/uL (0-0.8); Eosinophils % (auto) 0.4 % (0.0-7.0); Hemoglobin 10.5 g/dL (13.5-17.5); Lymphocytes # (auto) 0.8 10 ^3/uL (0.4-5.4); Monocytes # (auto) 0.4 10 ^3/uL (0-1.3); Neutrophils # (auto) 9.4 10 ^3/uL (1.6-8.6); White Blood Cell 10.7 10^3/uL (4.4-10.8)
[2023-11-13 19:42] LABS: Basophils % (auto) 0.1 % (0.0-2.0); Hematocrit 31.9 % (41.0-53.0); Lymphocytes % (auto) 7.9 % (10.0-50.0); Mean Corpuscular Hemoglobin 26.3 pg (28.0-32.0); Mean Corpuscular Hgb Conc. 32.9 g/dL (32.0-36.0); Monocytes % (auto) 3.5 % (0.0-12.0); Neutrophils % (auto) 88.1 % (37.0-80.0); Platelet Count (auto) 380 10^3/uL (140-450); Red Blood Cells 3.99 10^6/uL (4.5-5.90); Red Cell Distribution Width 18.8 % (11.8-14.3)
[2023-11-13 19:46] LABS: Chloride 108 mmol/L (98-107); Potassium 4.7 mmol/L (3.5-5.1); Sodium 136 mmol/L (136-145)
[2023-11-13 19:47] LABS: Anion Gap 7 (5-15); Carbon Dioxide 21 mmol/L (20-30)
[2023-11-13 19:52] LABS: BUN/Creatinine Ratio 19.8 (10.0-20.0); Blood Urea Nitrogen 23 mg/dL (9-23); Glucose 274 mg/dL (74-106)
[2023-11-14] VITALS (7 sets, daily range): BP systolic 94–113; BP diastolic 53–63; PULSE 16–85; RESP 16–20; TEMP 97.6–98.6; O2SAT 93–99
[2023-11-14] MEDS: KETOROLAC TROMETH 30 MG/ML 1ML VIAL IV ONE (00:50)
[2023-11-14] MEDS: SODIUM CHLORIDE 0.9% 1,000 ML IV ONE ×2 (00:50→03:20)
[2023-11-14] MEDS ORDERED: DEXTROSE (50%) 50ML SYRG IV PRN (02:15)
[2023-11-14] MEDS ORDERED: ACETAMINOPHEN 325 MG TAB PO PRN (02:15)
[2023-11-14] MEDS ORDERED: NITROGLYCERIN 0.4 MG SL TAB SL PRN (02:15)
[2023-11-14] MEDS ORDERED: MORPHINE SULFATE INJ 2 MG/ml SYRG IV PRN ×2 (02:15)
[2023-11-14] MEDS: cefTRIAXone 1GM/50ML D5W 50 ML IV ONE (03:21)
[2023-11-14] MEDS: CLINDAMYCIN 600MG IV 50 ML IV SCH (06:11)
[2023-11-14] MEDS: PANTOPRAZOLE 40 MG TAB PO SCH (06:11)
[2023-11-14] MEDS ORDERED: BIOT5TAB3 PO (06:40)
[2023-11-14] MEDS ORDERED: ASCO500T11 PO (06:40)
[2023-11-14] MEDS ORDERED: VERI5TAB PO (06:40)
[2023-11-14] MEDS ORDERED: MAGN400T40 PO (06:40)
[2023-11-14] MEDS ORDERED: CHOL25CH3 PO (06:40)
[2023-11-14] MEDS: InsuLIN REG 1unit/0.01ml Soln (100units/ml) SC SCH (07:00)
[2023-11-14] MEDS: ACCU-CHEK COMFORT CURVE STRIP VI SCH (07:02)
[2023-11-14] MEDS: AMIODARONE HCL 200 MG TAB PO SCH (09:52)
[2023-11-14] MEDS: CARVEDILOL 3.125 MG TAB PO SCH (09:53)
[2023-11-14] MEDS: ENOXAPARIN SOD 40 MG/0.4 ML SYRINGE SC SCH (09:54)
[2023-11-14] MEDS: MEROPENEM 1GM IVPB 50 ML IV SCH (17:03)
[2023-11-14] MEDS: ATORVASTATIN 20 MG TAB PO SCH (21:38)
[2023-11-14] MEDS: HYDROcodone-ACET 5/325MG TAB PO PRN (21:42)
[2023-11-15] VITALS (7 sets, daily range): BP systolic 93–108; BP diastolic 50–63; PULSE 62–82; RESP 16–20; TEMP 98–99.6; O2SAT 94–99
[2023-11-15] MEDS ORDERED: cefTRIAXone 1GM/50ML D5W 50 ML IV SCH (02:00)
[2023-11-15 05:32] LABS: Basophils # (auto) 0 10 ^3/uL (0-0.2); Eosinophils # (auto) 0 10 ^3/uL (0-0.8); Hemoglobin 9.8 g/dL (13.5-17.5); Lymphocytes % (auto) 10.8 % (10.0-50.0); Monocytes # (auto) 0.5 10 ^3/uL (0-1.3); Neutrophils # (auto) 7.8 10 ^3/uL (1.6-8.6); White Blood Cell 9.4 10^3/uL (4.4-10.8)
[2023-11-15 05:35] LABS: Basophils % (auto) 0.2 % (0.0-2.0); Eosinophils % (auto) 0.5 % (0.0-7.0); Hematocrit 29.6 % (41.0-53.0); Mean Corpuscular Hemoglobin 26.8 pg (28.0-32.0); Mean Corpuscular Hgb Conc. 33.2 g/dL (32.0-36.0); Mean Corpuscular Volume 80.8 fL (80.0-100.0); Monocytes % (auto) 5.3 % (0.0-12.0); Neutrophils % (auto) 83.2 % (37.0-80.0); Nucleated Red Blood Cells % 0.1 %; Platelet Count (auto) 345 10^3/uL (140-450); Red Blood Cells 3.67 10^6/uL (4.5-5.90); Red Cell Distribution Width 18.3 % (11.8-14.3)
[2023-11-15 05:58] LABS: Alanine Aminotransferase 15 U/L (7-40); Albumin 3.4 g/dL (3.2-4.8); Alkaline Phosphatase 104 U/L (46-116); Anion Gap 6 (5-15); BUN/Creatinine Ratio 18.8 (10.0-20.0); Blood Urea Nitrogen 18 mg/dL (9-23); Calcium 8.6 mg/dL (8.7-10.4); Carbon Dioxide 22 mmol/L (20-30); Chloride 106 mmol/L (98-107); Potassium 4.2 mmol/L (3.5-5.1); Sodium 134 mmol/L (136-145)
[2023-11-15 05:59] LABS: Aspartate Aminotransferase 14 U/L (13-40); Bilirubin, Total 0.7 mg/dL (0.2-1.0); Total Protein 7.1 g/dL (5.7-8.2)
[2023-11-15 06:01] LABS: Glucose 168 mg/dL (74-106)
[2023-11-15] MEDS: metroNIDAZOLE 500MG/100ML 100 ML IV SCH (15:09)
[2023-11-15] MEDS: MEROPENEM 1GM IVPB 50 ML IV SCH (23:29)
[2023-11-16 01:00] VITALS: BP 101/55; PULSE 74; RESP 19; TEMP 98.6; O2SAT 98
[2023-11-16 05:00] VITALS: BP 104/57; PULSE 78; RESP 16; TEMP 98.1; O2SAT 90
[2023-11-16 09:00] VITALS: BP 90/46; PULSE 96; RESP 18; TEMP 98.6; O2SAT 99
[2023-11-16 13:00] VITALS: BP 102/62; PULSE 64; RESP 18; TEMP 97.7; O2SAT 98
[2023-11-16 17:00] VITALS: BP 92/52; PULSE 70; RESP 18; TEMP 97.9; O2SAT 96
[2023-11-16 21:00] VITALS: BP 101/57; PULSE 72; RESP 20; TEMP 97.7; O2SAT 97
[2023-11-17] VITALS (8 sets, daily range): BP systolic 84–110; BP diastolic 8–69; PULSE 66–85; RESP 14–20; TEMP 97.7–98.6; O2SAT 94–98
[2023-11-18] VITALS (8 sets, daily range): BP systolic 85–111; BP diastolic 44–66; PULSE 55–80; RESP 17–20; TEMP 97.9–98.2; O2SAT 92–100
[2023-11-18 15:39] LABS: Alanine Aminotransferase 16 U/L (7-40); Albumin 3.4 g/dL (3.2-4.8); Alkaline Phosphatase 99 U/L (46-116); Anion Gap 4 (5-15); Aspartate Aminotransferase 21 U/L (13-40); BUN/Creatinine Ratio 21.3 (10.0-20.0); Bilirubin, Total 0.4 mg/dL (0.2-1.0); Blood Urea Nitrogen 19 mg/dL (9-23); Carbon Dioxide 27 mmol/L (20-30); Chloride 104 mmol/L (98-107); Glucose 199 mg/dL (74-106); Sodium 135 mmol/L (136-145); Total Protein 7.2 g/dL (5.7-8.2)
[2023-11-18 15:55] LABS: Basophils # (auto) 0 10 ^3/uL (0-0.2); Eosinophils # (auto) 0.1 10 ^3/uL (0-0.8); Hemoglobin 10.7 g/dL (13.5-17.5); Lymphocytes # (auto) 1.2 10 ^3/uL (0.4-5.4); Monocytes # (auto) 0.4 10 ^3/uL (0-1.3); Monocytes % (auto) 5.3 % (0.0-12.0)
[2023-11-18 15:57] LABS: Basophils % (auto) 0.5 % (0.0-2.0); Eosinophils % (auto) 1.8 % (0.0-7.0); Hematocrit 32.4 % (41.0-53.0); Lymphocytes % (auto) 15.1 % (10.0-50.0); Mean Corpuscular Hemoglobin 26.3 pg (28.0-32.0); Mean Corpuscular Volume 79.7 fL (80.0-100.0); Neutrophils # (auto) 6.1 10 ^3/uL (1.6-8.6); Neutrophils % (auto) 77.3 % (37.0-80.0); Platelet Count (auto) 386 10^3/uL (140-450); Red Blood Cells 4.06 10^6/uL (4.5-5.90); Red Cell Distribution Width 18.4 % (11.8-14.3); White Blood Cell 7.9 10^3/uL (4.4-10.8)
[2023-11-18 16:54] LABS: Urine Bacteria None Seen /hpf (None Seen)
[2023-11-18 17:04] LABS: Urine Blood Negative /uL (Negative); Urine Budding Yeast MANY /hpf (None Seen); Urine Clarity Clear (Clear); Urine Color Light-Yellow (Yellow); Urine Hyaline Cast FEW /lpf (0 - 2); Urine Protein, UAD Negative (Negative); Urine Specific Gravity 1.014 (1.001-1.035); Urine Urobilinogen Normal (Negative); Urine WBC 10 /hpf (0 - 3)
[2023-11-19] VITALS (7 sets, daily range): BP systolic 97–120; BP diastolic 55–70; PULSE 71–93; RESP 14–20; TEMP 97.3–98.6; O2SAT 96–100
[2023-11-19 07:45] LABS: INR 1.28 (0.9-1.15); Prothrombin Time 13.3 sec (9.3-11.8)
[2023-11-19] MEDS: LIDOCAINE 1% (LOCAL ANESTH.) PF 5ml SDV ID ONE (14:30)
[2023-11-19] MEDS: SODIUM CHLOR 0.9% PF (SALINE LOCK) 10ML VIAL/SYR IV SCH (21:48)
[2023-11-20] VITALS (8 sets, daily range): BP systolic 92–128; BP diastolic 45–86; PULSE 71–80; RESP 18–22; TEMP 97.4–98.7; O2SAT 93–97
[2023-11-21 05:02] VITALS: BP 98/58; PULSE 75; RESP 18; TEMP 97.9; O2SAT 94
[2023-11-21] MEDS: ONDANSETRON HCL 4 MG/2 ML VIAL IV PRN (08:26)
[2023-11-21 08:44] VITALS: BP 109/63; PULSE 64; RESP 20; TEMP 97.8; O2SAT 92
[2023-11-21 12:17] VITALS: BP 99/54; PULSE 83; RESP 18; TEMP 98.7; O2SAT 96
[2023-11-21 17:03] VITALS: BP 96/54; PULSE 78; RESP 18; TEMP 98.7; O2SAT 99
[2023-11-21 20:00] VITALS: PULSE 74; RESP 20
[2023-11-21 21:00] VITALS: BP_SYST 84; BP_SYST 90; BP_DIAS 43; BP_DIAS 54; PULSE 75; RESP 21; TEMP 98.1; O2SAT 97
[2023-11-22 01:00] VITALS: BP 97/57; PULSE 78; RESP 20; TEMP 98.2; O2SAT 96
[2023-11-22 05:00] VITALS: BP 97/61; PULSE 75; RESP 18; TEMP 98.3; O2SAT 98
[2023-11-22 08:42] VITALS: BP 98/60; PULSE 75; RESP 16; TEMP 98.6; O2SAT 98
[2023-11-22 12:08] VITALS: BP 94/60; PULSE 78; RESP 17; TEMP 97.8; O2SAT 98
[2023-11-22 16:35] VITALS: BP 125/66; PULSE 67; RESP 20; TEMP 98.4; O2SAT 100
[2023-11-22 17:33] VITALS: BP 94/60; PULSE 73; TEMP 36.9
== END 2023-11-22 18:35 | disposition home health service (06) | DRG 593 ==
LOC: ER 18:08 → OVERFLOW 11-14 02:18 → WEST WING 11-14 04:33 → CENTRAL 11-19 07:04
PROVIDERS: ADMIT Nurse Practitioner; ATTEND Internal Medicine Cardiovascular Disease
PROC: 02HV33Z Insertion of Infusion Device into Superior Vena Cava, Percutaneous Approach (ICD-10-PCS; principal; 2023-11-19)
PROC: B548ZZA Ultrasonography of Superior Vena Cava, Guidance (ICD-10-PCS; 2023-11-19)
DX: L89.154 Pressure ulcer of sacral region, stage 4 (principal); G82.20 Paraplegia, unspecified; E11.65 Type 2 diabetes mellitus with hyperglycemia; I50.9 Heart failure, unspecified; I11.0 Hypertensive heart disease with heart failure; E78.5 Hyperlipidemia, unspecified; Z93.3 Colostomy status; Z93.2 Ileostomy status; Z90.6 Acquired absence of other parts of urinary tract; Z83.3 Family history of diabetes mellitus; Z79.899 Other long term (current) drug therapy; Z79.4 Long term (current) use of insulin; L89.899 Pressure ulcer of other site, unspecified stage
CPT/HCPCS: 36415; 36569; 71045; 74176; 80048; 80053; 81001; 82962; 83605; 85025; 85610; 85730; 87040; 87205; 96365; G0378; J1815; J2185; J2405; J3490

== ENCOUNTER → 2024-01-13 | Outpatient (CLI) | payer MEDICARE, MEDICAID ==
[~2024-01-13] MED LIST changes: +ASCO500T11 PO; -ATOR10TA52 PO; +BIOT5TAB3 PO; +CHOL25CH3 PO; +IOHEXOL 350 MG/ML 100ML IJ ONE; +MAGN400T40 PO; +VERI5TAB PO
[2024-01-13 10:21] VITALS: BP 154/79; PULSE 75; RESP 16; O2SAT 97
[2024-01-13 10:39] VITALS: BP 152/77; PULSE 82; RESP 16; O2SAT 97
== END | disposition home or self-care (01) ==
LOC: Rad HDHVI 10:05
PROVIDERS: ATTEND Internal Medicine Cardiovascular Disease
DX: M86.652 Other chronic osteomyelitis, left thigh (principal); M16.12 Unilateral primary osteoarthritis, left hip; L89.309 Pressure ulcer of unspecified buttock, unspecified stage
CPT/HCPCS: 72193; G0463; Q9967

== ENCOUNTER 2024-05-26 10:13 | Inpatient (IN) | payer MEDICARE, MEDICAID ==
[~2024-05-26] VITALS: Ht 167.6 cm; Wt 108.8 kg
[~2024-05-26 10:13] MED LIST changes: +BACL10TA PO; -IOHEXOL 350 MG/ML 100ML IJ ONE; +LEVO100T8 PO; +PANT40TA57 PO; +TRAM50TA2 PO
--- NOTE | 2024-05-26 10:29 | ECG ---
[facility] Test Date: 2024-05-26 Test Time: 10:19:00 Pat Name: TIFFANY ANDERSON Department: EMS Room: 0288 Gender: M Bilingual Spanish Inbound Sales: ER : 1970 Requested By: VIANNEY ELAM Order Number: [id number] Reading MD: Michel Gonzalez Measurements Intervals [place] Rate: 88 P: 6 MN: 181 QRS: -54 QRSD: 164 T: 111 QT: 434 QTc: 526 Interpretive Statements Sinus rhythm Left bundle branch block Electronically Signed On 05-30-2024 17:41:42 PST by Michel Gonzalez Please click the below link to view image of tracing.
--- NOTE | 2024-05-26 10:36 | ED.PDOC ---
SOB-HPI HPI Comments This is a 53-year-old male who comes in with a chief complaint of shortness a breath. The symptoms seemed to worsen over the past three days. The patient was also experiencing some night sweats as well as a right buttocks decubitus. With the paramedics arrived, the patient was wheezing with an oxygen saturation of 89%. The patient was given a breathing treatment and it went up to 95%. The patient's with the eyes any history of COPD or asthma. There has been no vomiting or diarrhea. The patient has been other complaints at this time. Upon arrival, the patient was able to speak in full sentences. 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 Modifying Factors: Nothing Associated Signs and Symptoms: Wheeze, Cough Quality: Other (No chest pain at this time) If cough with SOB: Non-Productive Past Medical History PAST MEDICAL HISTORY: CHF, DM, High Lipids, HTN, AL, Thyroid Surgical History: Appendectomy, Pacemaker Surgical History (Other): Urostomy and colostomy bag Family History Family History: Family hx of DM Social History Smoker: Non-Smoker Alcohol: Occasionally Drugs: Denies Drug Use Lives In: Home Constitutional: denies: chills, diaphoresis, fatigue, fever, malaise, sweats, weakness, others EENTM: denies: blurred vision, double vision, ear bleeding, ear discharge, ear drainage, ear pain, ear ringing, eye pain, eye redness, hearing loss, mouth pain, mouth swelling, nasal discharge, nose bleeding, nose congestion, nose pain, photophobia, tearing, throat pain, throat swelling, voice changes, others Respiratory: denies: cough, hemoptysis, orthopnea, SOB at rest, shortness of breath, SOB with excertion, stridor, wheezing, others Cardiovascular: denies: chest pain, dizzy spells, diaphoresis, Dyspnea on exertion, edema, irregular heart beat, left arm pain, lightheadedness, palpitations, PND, syncope, others Gastrointestinal: reports: others (Colostomy bag in place and urostomy); ga es: abdomen distended, abdominal pain, blood streaked bowels, constipated, diarrhea, dysphagia, difficulty swallowing, hematemesis, melena, nausea, poor appetite, poor fluid intake, rectal bleeding, rectal pain, vomiting Genitourinary: denies: burning, dysuria, flank pain, frequency, hematuria, incontinence, penile discharge, penile sore, pain, testicle pain, testicle swelling, urgency, others Neurological: denies: dizziness, fainting, headache, left sided numbness, left sided weakness, numbness, paresthesia, pre-existing deficit, right sided numbness, right sided weakness, seizure, speech problems, tingling, tremors, weakness, others Musculoskeletal: denies: back pain, gout, joint pain, joint swelling, muscle pain, muscle stiffness, neck pain, others Integumetry: denies: bruises, change in color, change in hair/nails, dryness, laceration, lesions, lumps, rash, wounds, others Allergic/Immunocompromised: denies: Difficulty Healing, Frequent Infections, Hives, Itching, others Hematologic/Lymphatic: denies: anemia, blood clots, easy bleeding, easy bruising, swollen glands, others Endocrine: denies: excessive hunger, excessive sweating, excessive thirst, excessive urination, flushing, intolerance to cold, intolerance to heat, unexplained weight gain, unexplained weight loss, others Psychiatric: denies: anxiety, bipolar disorder, depression, hopeless, panic disorder, schizophrenia, sleepless, suicidal, others Physical Exam General Appearance: Moderate Distress HEENT: Normal ENT Inspection, Pharynx Normal, TMs Normal Neck: Full Range of Motion, Non-Tender, Normal, Normal Inspection Respiratory: Chest Non-Tender, Decreased Breath Sounds, No Accessory Muscle Use, Respiratory Distress, Wheezing Cardiovascular: No Edema, No JVD, No Murmur, No Gallop, Normal Peripheral Pulses, Regular Rate/Rhythm Breast Exam: Deferred Gastrointestinal: No Organomegaly, Non Tender, No Pulsatile Mass, Normal Bowel Sounds, Soft Genitalia: Deferred Pelvic: Deferred Rectal: Deferred Extremities: No calf tenderness, Normal capillary refill, Normal inspection, Normal range of motion, Non-tender, No pedal edema Musculoskeletal : Apperance: Normal Neurologic: Alert, network support analyst II-XII nml as Tested, No Motor Deficits, Normal Affect, Normal Mood, No Sensory Deficits Cerebellar Function: Normal Reflexes: Normal Skin: Dry, Normal Color, Warm Lymphatic: No Adenopathy EKG EKG : Pulse Rate (adult): 88 [place]: Normal Cardiac Rhythm: NSR Block: RBBB ST: Nonsp Was a procedure done? Was a procedure done?: No Differential Dx Differential Diagnosis: Asthma, Bronchitis, CHF, COPD, Pneumonia X-Ray, Labs, Meds, VS Vital Signs Date Time Temp Pulse Resp B/P (MAP) Pulse Ox O2 Delivery O2 Flow Rate FiO2 05/26/24 10:41 22 92 Room Air* 0 21 05/26/24 10:40 88 05/26/24 10:24 Room Air* 0 21 05/26/24 10:24 Room Air* 0 21 05/26/24 10:24 99.8 83 18 123/77 (92) 97 05/26/24 10:20 99.8 83 18 123/77 (92) 97 99.8 05/26/24 10:19 88 Lab Test 05/26/24 10:45 05/26/24 10:35 Range/Units Lactic Acid Level 1.6 0.4-2.0 mmol/L White Blood Count 8.6 4.4-10.8 10^3/uL Red Blood Count 4.69 4.5-5.90 10^6/uL Hemoglobin 12.1 L 13.5-17.5 g/dL Hematocrit 36.7 L 41.0-53.0 % Mean Corpuscular Volume 78.1 L 80.0-100.0 fL Mean Corpuscular Hemoglobin 25.7 L 28.0-32.0 pg Mean Corpuscular Hemoglobin Concent 32.9 32.0-36.0 g/dL Red Cell Distribution Width 17.6 H 11.8-14.3 % Platelet Count 209 140-450 10^3/uL Mean Platelet Volume 9.5 6.9-10.8 fL Neutrophils (%) (Auto) 77.5 37.0-80.0 % Lymphocytes (%) (Auto) 15.6 10.0-50.0 % Monocytes (%) (Auto) 6.2 0.0-12.0 % Eosinophils (%) (Auto) 0.2 0.0-7.0 % Basophils (%) (Auto) 0.5 0.0-2.0 % Neutrophils # (Auto) 6.7 1.6-8.6 10 ^3/uL Lymphocytes # (Auto) 1.3 0.4-5.4 10 ^3/uL Monocytes # (Auto) 0.5 0-1.3 10 ^3/uL Eosinophils # (Auto) 0 0-0.8 10 ^3/uL Basophils # (Auto) 0 0-0.2 10 ^3/uL Nucleated Red Blood Cells 0.1 % Sodium Level 130 L 136-145 mmol/L Potassium Level 4.0 3.5-5.1 mmol/L Chloride Level 98 98-107 mmol/L Carbon Dioxide Level 22 20-31 mmol/L Anion Gap 10 5-15 Blood Urea Nitrogen 13 9-23 mg/dL Creatinine 0.97 0.700-1.30 mg/dL Glomerular Filtration Rate Calc 93 >90 mL/min BUN/Creatinine Ratio 13.4 10.0-20.0 Serum Glucose 212 H 74-106 mg/dL Calcium Level 9.0 8.7-10.4 mg/dL Troponin I High Sensitivity 53 </=54 ng/L B-Type Natriuretic Peptide 944.90 0-100 pg/mL Current Medications Medications (Trade) Dose Ordered Sig/Danielle Route Start Time Stop Time Status Last Admin Methylprednisolone Sodium Succinate (Solu Medrol) 125 mg ONCE ONCE IV 05/26/24 10:30 05/26/24 10:31 DC 05/26/24 10:46 Ipratropium [place] (Atrovent Medneb) 1 mg ONCE ONCE N 05/26/24 10:30 05/26/24 10:31 DC 05/26/24 10:45 Albuterol (Ventolin Medneb) 10 mg ONCE ONCE N 05/26/24 10:30 05/26/24 10:31 DC 05/26/24 10:45 IV Hep-Lock was established. The patient was given Solu-Medrol 125 mg IV push The patient was being given a breathing treatment of albuterol and Atrovent The chest x-ray shows: IMPRESSION: Cardiomegaly with diffuse airspace opacities which may reflect pulmonary edema versus atypical infection. The patient was being given Lasix 40 mg IV push The patient has a BNP of 944.9 The patient's CBC shows some mild anemia with a hemoglobin of 12.1 and hematocrit of 36.7 The patient was hyperglycemic at 212 At this time, the patient was being admitted with a diagnosis of acute on chronic diastolic heart failure Images Reviewed?: Images reviewed and evaluated by me Time of 1ST Reevaluation: 12:16 Reevaluation 1ST: Unchanged Patient Education/Counseling: Diagnosis, Treatment, Prognosis Family Education/Counseling: No Family Present Departure 1 Departure Time of Disposition: 12:15 Impression: Primary Impression: Acute on chronic diastolic heart failure Additional Impressions: Stage III pressure ulcer of left buttock Anemia Qualified Codes: D64.9 - Anemia, unspecified Disposition: 09 ADMITTED INPATIENT Admit to: Tele Condition: Fair Critical Care Note Critical Care Time?: Yes (35 min-critical care time only) Stability Stability form required: Yes Unstable for transfer: Telemetry monitoring (Telemetry monitoring required), ED Physician Assesment (Clinical assesment) Heart Score Heart Score: Heart Score Response (Comments) Value History N/A 0 EKG N/A 0 Age N/A 0 Risk Factors N/A 0 Troponin N/A 0 Total 0 VIANNEY ELAM MD May 26, 2024 10:36
[2024-05-26] MEDS: IPRATROPIUM BROM 0.5 MG/2.5ML INH SOL HHN ONE (10:45)
[2024-05-26] MEDS: ALBUTEROL SULF 2.5 MG/0.5ML(0.5%) NEB SOLN HHN ONE (10:45)
[2024-05-26] MEDS: methylPREDNISolone SOD SUCC 125 MG/2 ML VL IV ONE (10:46)
[2024-05-26 11:09] LABS: Anion Gap 10 (5-15); Carbon Dioxide 22 mmol/L (20-31)
[2024-05-26 11:10] LABS: Eosinophils # (auto) 0 10 ^3/uL (0-0.8); Monocytes # (auto) 0.5 10 ^3/uL (0-1.3); Nucleated Red Blood Cells % 0.1 %; Red Cell Distribution Width 17.6 % (11.8-14.3); White Blood Cell 8.6 10^3/uL (4.4-10.8)
[2024-05-26 11:13] LABS: Basophils # (auto) 0 10 ^3/uL (0-0.2); Basophils % (auto) 0.5 % (0.0-2.0); Eosinophils % (auto) 0.2 % (0.0-7.0); Hematocrit 36.7 % (41.0-53.0); Hemoglobin 12.1 g/dL (13.5-17.5); Lymphocytes # (auto) 1.3 10 ^3/uL (0.4-5.4); Lymphocytes % (auto) 15.6 % (10.0-50.0); Mean Corpuscular Hemoglobin 25.7 pg (28.0-32.0); Mean Corpuscular Hgb Conc. 32.9 g/dL (32.0-36.0); Mean Corpuscular Volume 78.1 fL (80.0-100.0); Monocytes % (auto) 6.2 % (0.0-12.0); Neutrophils # (auto) 6.7 10 ^3/uL (1.6-8.6); Neutrophils % (auto) 77.5 % (37.0-80.0); Platelet Count (auto) 209 10^3/uL (140-450); Red Blood Cells 4.69 10^6/uL (4.5-5.90)
[2024-05-26 11:14] LABS: BUN/Creatinine Ratio 13.4 (10.0-20.0); Blood Urea Nitrogen 13 mg/dL (9-23)
[2024-05-26 11:17] LABS: Chloride 98 mmol/L (98-107); Glucose 212 mg/dL (74-106); Sodium 130 mmol/L (136-145)
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
[2024-05-26] MEDS: FUROSEMIDE 40 MG/4 ML VIAL IV ONE (12:29)
[2024-05-26] MEDS ORDERED: ACETAMINOPHEN 325 MG TAB PO PRN (15:30)
[2024-05-26] MEDS ORDERED: HYDROcodone-ACET 5/325MG TAB PO PRN (15:30)
[2024-05-26] MEDS ORDERED: NITROGLYCERIN 0.4 MG SL TAB SL PRN (15:30)
[2024-05-26] MEDS ORDERED: MORPHINE SULFATE INJ 2 MG/ml SYRG IV PRN (15:30)
[2024-05-26] MEDS ORDERED: DOCUSATE SOD 100 MG CAP PO PRN (15:30)
[2024-05-26] MEDS ORDERED: ONDANSETRON HCL 4 MG/2 ML VIAL IV PRN (15:30)
[2024-05-26] MEDS ORDERED: DEXTROSE (50%) 50ML SYRG IV PRN (15:30)
[2024-05-26 15:32] VITALS: BP 110/67; PULSE 83; RESP 18; TEMP 99.8; O2SAT 97
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
[2024-05-26 15:39] VITALS: O2SAT 97
[2024-05-26] MEDS: InsuLIN REG 1unit/0.01ml Soln (100units/ml) SC SCH ×2 (17:06→23:45)
[2024-05-26] MEDS: ACCU-CHEK COMFORT CURVE STRIP VI SCH (17:07)
[2024-05-26] MEDS ORDERED: METF-370 PO (18:50)
[2024-05-26 18:51] VITALS: PULSE 72; RESP 18; O2SAT 96
[2024-05-26] MEDS: IPRATROPIUM BROM 0.5 MG/2.5ML INH SOL NEB SCH (18:51)
[2024-05-26] MEDS: ALBUTEROL SULF 2.5 MG/0.5ML(0.5%) NEB SOLN NEB SCH (18:51)
[2024-05-26] MEDS ORDERED: ATOR10TA52 PO (18:51)
[2024-05-26 19:01] VITALS: PULSE 77; RESP 20; O2SAT 99
[2024-05-26] MEDS: SODIUM CHLOR 0.9% PF (SALINE LOCK) 10ML VIAL/SYR IV SCH (23:45)
[2024-05-26] MEDS: methylPREDNISolone SOD SUCC 40 MG/ML VL IV SCH (23:45)
[2024-05-27] VITALS (12 sets, daily range): BP systolic 109–111; BP diastolic 62–65; PULSE 64–82; RESP 14–20; TEMP 97.3–97.5; O2SAT 94–100
[2024-05-27 02:53] LABS: Rapid Influenza A Negative (Negative); Rapid Influenza B Negative (Negative)
[2024-05-27 02:54] LABS: COVID19 ANTIGEN SOFIA FIA NEGATIVE (NEGATIVE)
[2024-05-27 07:03] LABS: Basophils # (auto) 0 10 ^3/uL (0-0.2); Basophils % (auto) 0.2 % (0.0-2.0); Eosinophils # (auto) 0 10 ^3/uL (0-0.8); Eosinophils % (auto) 0.1 % (0.0-7.0); Hematocrit 35.3 % (41.0-53.0); Hemoglobin 12.2 g/dL (13.5-17.5); Lymphocytes # (auto) 0.7 10 ^3/uL (0.4-5.4); Lymphocytes % (auto) 17.7 % (10.0-50.0); Mean Corpuscular Hgb Conc. 34.5 g/dL (32.0-36.0); Mean Corpuscular Volume 78.4 fL (80.0-100.0); Monocytes # (auto) 0.2 10 ^3/uL (0-1.3); Monocytes % (auto) 4.5 % (0.0-12.0); Neutrophils # (auto) 3.1 10 ^3/uL (1.6-8.6); Neutrophils % (auto) 77.5 % (37.0-80.0); Nucleated Red Blood Cells % 0.3 %; Platelet Count (auto) 199 10^3/uL (140-450); Red Cell Distribution Width 17.3 % (11.8-14.3)
[2024-05-27] MEDS: FUROSEMIDE 20 MG/2 ML VIAL IV SCH (11:35)
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
[2024-05-27] MEDS: cefTRIAXone 1GM/50ML D5W 50 ML IV SCH (19:27)
[2024-05-28] VITALS (14 sets, daily range): BP systolic 98–131; BP diastolic 54–64; PULSE 56–81; RESP 15–20; TEMP 97.3–98.2; O2SAT 94–100
[2024-05-28] MEDS: BUMETANIDE 1 MG TAB PO SCH (10:06)
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
[2024-05-28] MEDS: INSULIN LISPRO (HUMAN) 100 UNITS/ML ML SC ONE (17:15)
[2024-05-29 01:00] VITALS: BP 100/55; PULSE 70; RESP 20; TEMP 97.2; O2SAT 96
[2024-05-29 04:20] VITALS: BP 100/55; PULSE 70; RESP 20; O2SAT 96
[2024-05-29 05:00] VITALS: BP 107/65; PULSE 73; RESP 18; TEMP 97.1; O2SAT 100
[2024-05-29 07:49] VITALS: O2SAT 98
[2024-05-29 07:55] VITALS: PULSE 89; RESP 20; O2SAT 98
[2024-05-29 08:05] VITALS: PULSE 69
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
== END 2024-05-29 09:05 | disposition home or self-care (01) | DRG 291 ==
LOC: EDBD 10:13 → ER 10:13 → OVERFLOW 15:22 → TELE-WESTW 05-27 15:10 → WEST WING 05-29 00:28
PROVIDERS: ADMIT Internal Medicine; ATTEND Internal Medicine
DX: I11.0 Hypertensive heart disease with heart failure (principal); I50.43 Acute on chronic combined systolic (congestive) and diastolic (congestive) heart failure; L89.323 Pressure ulcer of left buttock, stage 3; G82.20 Paraplegia, unspecified; E11.65 Type 2 diabetes mellitus with hyperglycemia; E78.5 Hyperlipidemia, unspecified; D64.9 Anemia, unspecified; E66.01 Morbid (severe) obesity due to excess calories; I25.10 Atherosclerotic heart disease of native coronary artery without angina pectoris; Z74.01 Bed confinement status; Z93.3 Colostomy status; Z83.3 Family history of diabetes mellitus; Z79.899 Other long term (current) drug therapy; Z68.35 Body mass index [BMI] 35.0-35.9, adult
CPT/HCPCS: 36415; 71045; 80048; 82962; 83036; 83605; 83880; 84484; 85025; 87040; 87426; 87804; 93005; 94640; 96374; 96375; 99291; G0378; J1815

== ENCOUNTER → 2024-06-22 | Outpatient (CLI) | payer MEDICARE, MEDICAID ==
[~2024-06-22] MED LIST changes: +ATOR10TA52 PO; +METF-370 PO; -PANT40TA2 PO
--- NOTE | 2024-06-22 16:40 | DVHSR ---
APPROVED REPORT EXAM: Two-dimensional and M-mode echocardiogram with Doppler and color Doppler. DIMENSIONS LVDd6.2 (3.8-5.7cm)LA (2D)3.6 (1.9-4.0cm)Aortic Root3.1 (2.0-3.7cm) LVDs5.9 (2.5-4.0cm)LA (MM) (1.9-4.0cm)Aortic Cusp Exc2.0 (1.5-2.0cm) EF (%) 8.4 (55-70%)Rt. Atrium3.8 (1.9-4.0cm)Asc. Aorta cm IVSd1.2 (0.7-1.1cm)RV (D)3.2 (1.8-2.4cm) PWd0.9 (0.7-1.1cm) Mitral Valve MitralMitral Stenosis E wave1.11m/sMV Mean GR.mmHg A wave0.48m/sMV Peak GR.25mmHg E/A ratio2.32D MVAcm2 DECEL [id number] 1/2 [place] Aortic Valve Aortic ValveAortic Stenosis V10.40m/Jose Mean GR.2mmHg V20.97m/Jose Peak GR.4mmHg Pulmonic Valve V20.62m/s Tricuspid Valve [id number] LEFT VENTRICLE The Ejection Fraction is <25%. ATRIA The left atrial size is normal. The right atrium size is normal. MITRAL VALVE Mitral annular calcification is mild. Mitral regurgitation is trace. PULMONIC VALVE The pulmonic valve is not well visualized. TRICUSPID VALVE The tricuspid valve is grossly normal. AORTIC VALVE The aortic valve opens well. No aortic regurgitation is present. GREAT VESSELS The aortic root is normal size. PERICARDIAL EFFUSION There is no pericardial effusion. Conclusion EF <10% LVE
== END | disposition home or self-care (01) ==
LOC: Rad HDHVI 15:06
PROVIDERS: ATTEND Internal Medicine Cardiovascular Disease
DX: I34.81 Nonrheumatic mitral (valve) annulus calcification (principal); I50.23 Acute on chronic systolic (congestive) heart failure
CPT/HCPCS: 93306

== ENCOUNTER 2025-01-06 12:05 | Outpatient (CLI) | payer MEDICARE, MEDICAID ==
[2025-01-06 12:23] LABS: Hemoglobin 12.3 g/dL (13.5-17.5); Mean Corpuscular Hemoglobin 25.8 pg (28.0-32.0)
[2025-01-06 12:24] LABS: Hematocrit 37.4 % (41.0-53.0); Mean Corpuscular Volume 78.6 fL (80.0-100.0); Nucleated Red Blood Cells % 0.0 %
[2025-01-06 13:07] LABS: Albumin 4.1 g/dL (3.2-4.8); Anion Gap 10 (5-15); BUN/Creatinine Ratio 19.8 (10.0-20.0); Blood Urea Nitrogen 19 mg/dL (9-23); Calcium 8.9 mg/dL (8.7-10.4); Carbon Dioxide 23 mmol/L (20-31); Chloride 104 mmol/L (98-107); Potassium 4.3 mmol/L (3.5-5.1); Sodium 137 mmol/L (136-145); Total Protein 7.2 g/dL (5.7-8.2)
[2025-01-06 13:08] LABS: Bilirubin, Total 0.9 mg/dL (0.2-1.0); Cholesterol 145 mg/dL (< 200); Urine Protein, UAD TRACE (Negative)
[2025-01-06 13:11] LABS: Alanine Aminotransferase 54 U/L (7-40); Alkaline Phosphatase 142 U/L (46-116); Bilirubin, Direct 0.3 mg/dL (<0.3); Glucose 172 mg/dL (74-106); HDL Cholesterol 30 mg/dL (40-59); Triglycerides 207 mg/dL (< 150)
== END 2025-01-08 17:00 | disposition home or self-care (01) ==
LOC: LAB 12:05
PROVIDERS: ATTEND Internal Medicine Cardiovascular Disease
DX: C61 Malignant neoplasm of prostate (principal); I11.0 Hypertensive heart disease with heart failure; I50.9 Heart failure, unspecified; R00.2 Palpitations; R30.0 Dysuria; E11.9 Type 2 diabetes mellitus without complications; E55.9 Vitamin D deficiency, unspecified; D64.9 Anemia, unspecified
CPT/HCPCS: 36415; 80048; 80061; 80076; 81003; 83036; 84153; 84403; 84443; 85025